=== PATIENT | female | born 1960 ===

== ENCOUNTER 2016-09-14 10:53 | Inpatient (IN) | payer MEDICAID, OTHER ==
[2016-09-14 12:28] LABS: BASO # 0.1 K/uL (0.0-0.2); BASO % 0.7 % (0.0-2.0); EOS # 0.1 K/uL (0.0-0.7); EOS % 1.8 % (0.0-4.0); HEMATOCRIT 23.8 % (34.0-47.0); LYMPH # 0.8 K/uL (1.0-4.3); LYMPH % 10.6 % (20.0-40.0); MEAN CELL VOLUME 81.4 fL (81.0-99.0); MEAN CORPUSCULAR HEMOGLOBIN 27.2 pg (27.0-31.0); MEAN CORPUSCULAR HGB CONC 33.4 g/dL (33.0-37.0); MEAN PLATELET VOLUME 6.9 fL (7.2-11.7); MONO # 0.5 K/uL (0.0-0.8); MONO % 5.8 % (0.0-10.0); WHITE BLOOD COUNT 7.9 K/uL (4.8-10.8)
[2016-09-14 12:37] LABS: POTASSIUM 5.2 mmol/L (3.6-5.2)
[2016-09-14] MEDS ORDERED: DiphenhydrAMINE 50 mg/ml Inj IVP STA (12:37)
[2016-09-14 12:39] LABS: ALB/GLOB RATIO 1.1 (1.0-2.1); BILIRUBIN,TOTAL 0.5 mg/dL (0.2-1.3); TOTAL PROTEIN 7.2 g/dL (6.3-8.3)
[2016-09-14 12:40] LABS: CALCIUM 7.9 mg/dl (8.6-10.4)
[2016-09-14] MEDS ORDERED: DiphenhydrAMINE 50 mg/ml Inj ONE (12:40)
--- NOTE | 2016-09-14 12:43 | C.PDOC ---
History Of Present Illness 56 y/o female pmhx HTN, renal disease presents to the ED with complains of headache worsening over the last week with associated pain to right samaritan area. Pt denies fever, vision changes, dizziness, vomiting or any other complaints. Pt with prolonged hospital course recently discharged 07/02/16. Time Seen by Provider: 09/14/16 12:32 Chief Complaint (Nursing): Headache History Per: Patient History/Exam Limitations: no limitations Onset/Duration Of Symptoms: Days Current Symptoms Are (Timing): Worse Severity: Moderate Quality: "Pain" Preceeding Symptoms: None Recent travel outside of the [place]: No Past Medical History Reviewed: Historical Data, Nursing Documentation, Vital Signs Vital Signs: Last Vital Signs Temp 98.2 F 09/14/16 14:05 Pulse 61 09/14/16 14:05 Resp 20 09/14/16 14:05 BP 166/82 H 09/14/16 14:05 Pulse Ox 100 09/14/16 14:23 - Medical History PMH: Hypercholesterolemia (uncontrolled ), Migraine - [facility] Procedures APPLICATION OF SPLINT (09/16/14) Family History: States: Unknown Family Hx - Social History Hx Tobacco Use: No Hx Alcohol Use: No Hx Substance Use: No - Immunization History Hx Tetanus Toxoid Vaccination: Yes Hx Influenza Vaccination: Yes Hx Pneumococcal Vaccination: No Review Of Systems Except As Marked, All Systems Reviewed And Found Negative. Constitutional: Negative for: Fever Eyes: Negative for: Vision Change Gastrointestinal: Negative for: Vomiting Musculoskeletal: Positive for: Other (pain to right temporal area) Neurological: Positive for: Headache. Negative for: Dizziness Physical Exam - Physical Exam Appears: Non-toxic, No Acute Distress Skin: Warm, Dry, No Rash Head: Atraumatic, Normacephalic, Tenderness (right temporal tenderness), No Swelling Eye(s): bilateral: PERRL, EOMI Ear(s): Bilateral: Normal Neck: Normal ROM, Supple Chest: Symmetrical Cardiovascular: Rhythm Regular, No Murmur Respiratory: Normal Breath Sounds, No Rales, No Rhonchi, No Wheezing Extremity: Bilateral: Atraumatic Neurological/Psych: Oriented x3, Normal Speech, Normal Cognition ED Course And Treatment - Laboratory Results Result Diagrams: 09/14/16 12:24 09/14/16 12:24 O2 Sat by Pulse Oximetry: 100 (on room air) Pulse Ox Interpretation: Normal - CT Scan/US CT head Other Rad Studies (CT/US): Read By Radiologist, Radiology Report Reviewed CT/US Interpretation: Accession No. : [id number]. Patient Name / ID : KALI SOSA / [id number]. Exam Date : 09/14/2016 13:16:32 ( Approved ) . Study Comment : Sex / Age : F / 56Y. Creator : Hilario Nicole. Dictator : Hilario Nicole. Departmental Shipping Clerk : Machine Former : Hilario Nicole. Approver2 : Report Date : 09/14/2016 13:20:05. My Comment : . PROCEDURE: CT HEAD WITHOUT CONTRAST. HISTORY: headache nausea. COMPARISON: Comparison is made to the previous study dated 06/30/2016. TECHNIQUE: Axial computed tomography images were obtained through the head/brain without intravenous contrast. Radiation dose: Total exam DLP = 595.84 mGy-cm. FINDINGS: HEMORRHAGE: No intracranial hemorrhage. BRAIN: No mass effect or edema. No atrophy or chronic microvascular ischemic changes. VENTRICLES: Unremarkable. No hydrocephalus. CALVARIUM: Unremarkable. PARANASAL SINUSES: Unremarkable as visualized. No significant inflammatory changes. MASTOID AIR CELLS: Unremarkable as visualized. No inflammatory changes. OTHER FINDINGS: None. IMPRESSION: Normal CT of the Head. Medical Decision Making Medical Decision Making: r/o intracranial pathology, migrains, worsening renal failure, temporal arteritis Plan: CT head, labs, benadryl, reglan 220: noted sed rate, noted cr. case discussed with dr salas, will see pt for hd. dr aguilera accepts. solumedrol ordered for possible temporal arteritis. Disposition - Disposition Disposition: HOSPITALIZED Disposition Time: 14:22 Condition: FAIR - Clinical Impression Clinical Impression: Renal failure, Headache, Temporal arteritis - Scribe Statement The provider has reviewed the documentation as recorded by the Mary Talley Provider Attestation: All medical record entries made by the Scribe were at my direction and personally dictated by me. I have reviewed the chart and agree that the record accurately reflects my personal performance of the history, physical exam, medical decision making, and the department course for this patient. I have also personally directed, reviewed, and agree with the discharge instructions and disposition. Decision To Admit - Pt Status Changed To: Hospital Disposition Of: Inpatient - Admit Certification Admit to Inpatient:: After my assessment, the patient will require hospitalization for at least two midnights. This is because of the severity of symptoms shown, intensity of services needed, and/or the medical risk in this patient being treated as an outpatient. - InPatient: Physician Admission Certification: I certify that this patient requires 2 or more midnights of care for the following reason:: pt with suspected temporal arteritis, worsening renal failure. needs hd - . Bed Request Type: Telemetry Admitting Physician: Niraj Aguilera Patient Diagnosis: Renal failure, Headache, Temporal arteritis
--- NOTE | 2016-09-14 13:21 | CT ---
PROCEDURE: CT HEAD WITHOUT CONTRAST. HISTORY: headache nausea COMPARISON: Comparison is made to the previous study dated 06/30/2016 TECHNIQUE: Axial computed tomography images were obtained through the head/brain without intravenous contrast. Radiation dose: Total exam DLP = 595.84 mGy-cm. FINDINGS: HEMORRHAGE: No intracranial hemorrhage. BRAIN: No mass effect or edema. No atrophy or chronic microvascular ischemic changes. VENTRICLES: Unremarkable. No hydrocephalus. CALVARIUM: Unremarkable. PARANASAL SINUSES: Unremarkable as visualized. No significant inflammatory changes. MASTOID AIR CELLS: Unremarkable as visualized. No inflammatory changes. OTHER FINDINGS: None. IMPRESSION: Normal CT of the Head.
[2016-09-14] MEDS ORDERED: MethylPREDNISolone 40 mg Vial IVP STA (14:20)
[2016-09-14 14:44] LABS: RBC URINE 8 /hpf (0-3); URINE BACTERIA RARE (<OCC); URINE BILIRUBIN NEGATIVE (NEGATIVE); URINE BLOOD 1+ (NEGATIVE); URINE COLOR Straw (YELLOW); URINE GLUCOSE (UA) 1+ mg/dL (Normal); URINE KETONE NEGATIVE (NEGATIVE); URINE LEUKOCYTE ESTERASE NEG Leu/uL (Negative); URINE PROTEIN 2+ mg/dL (NEGATIVE); URINE UROBILINOGEN NORMAL mg/dL (0.2-1.0); WBC URINE 4 /hpf (0-5)
[2016-09-14] MEDS ORDERED: methylPREDNISolone 1 GM in Sodium Chloride 0.9% 250 ML IV ONE (14:45)
--- NOTE | 2016-09-14 15:06 | CP.PCM.CON ---
History of Present Illness - History of Present Illness History of Present Illness: 56 y/o female with Hx/o chronic kidney disease, HTN presented to ER for c/o headaches, dizziness. No N&V but appetite has been poor. Pt was seen by us during her last admission in 06/2016. Her creatinine was 7.0 & was found to have atrophic & poorly functioning Rt kidney Pt was advised dialysis put pt did not want to proceed with dialysis at that time. She was also advised to come for f/u in the office but she did not follow up In ER pts BUN/Creat were 119/14.7 & severe metabolic acidosis Past Patient History - Infectious Disease Hx of Infectious Diseases: None - Tetanus Immunizations Tetanus Immunization: Unknown - Past Medical History & Family History Past Medical History?: Yes - Past Social History Smoking Status: Never Smoked - CARDIAC Hx Hypercholesterolemia: Yes (uncontrolled ) - PULMONARY Hx Respiratory Disorders: No - NEUROLOGICAL Hx Migraine: Yes - HEENT Hx HEENT Problems: No - RENAL Other/Comment: kidney problems - ENDOCRINE/METABOLIC Hx Endocrine Disorders: No - HEMATOLOGICAL/ONCOLOGICAL Hx Blood Disorders: No - INTEGUMENTARY Hx Dermatological Problems: No - MUSCULOSKELETAL/RHEUMATOLOGICAL Hx Musculoskeletal Disorders: No Hx Falls: No - GASTROINTESTINAL Hx Gastrointestinal Disorders: No - GENITOURINARY/GYNECOLOGICAL Hx Genitourinary Disorders: No - PSYCHIATRIC Hx Substance Use: No - SURGICAL HISTORY Hx Surgeries: Yes Other/Comment: Hx abdominal sx 15 years ago, pt unable to recall what type of surgery - ANESTHESIA Hx Anesthesia: Yes Hx Anesthesia Reactions: No Hx Malignant Hyperthermia: No Meds Allergies/Adverse Reactions: Allergies Allergy/AdvReac Type Severity Reaction Status Date / Time morphine Allergy Verified 09/14/16 10:58 - Medications Medications: Current Medications Methylprednisolone 1 gm/ (Sodium Chloride) 250 mls @ 250 mls/hr IV ONCE ONE Stop: 09/14/16 15:44 Physical Exam - Constitutional Additional comments: Appears in distress sec to headaches & weakness - Head Exam Head Exam: ATRAUMATIC, NORMOCEPHALIC - Eye Exam Additional comments: No icterus - ENT Exam ENT Exam: Mucous Membranes Dry - Neck Exam Additional comments: Neck supple - Cardiovascular Exam Cardiovascular Exam: REGULAR RHYTHM Additional comments: No rub - GI/Abdominal Exam GI & Abdominal Exam: Soft Additional comments: No tenderness - Rectal Exam Rectal Exam: Deferred - Extremities Exam Additional comments: No edema or cyanosis Results - Vital Signs Recent Vital Signs: Last Vital Signs Temp 98.2 F 09/14/16 14:05 Pulse 61 09/14/16 14:05 Resp 20 09/14/16 14:05 BP 166/82 H 09/14/16 14:05 Pulse Ox 100 09/14/16 14:23 - Labs Result Diagrams: 09/14/16 12:24 09/14/16 12:24 Labs: Laboratory Results - last 24 hr 09/14/16 14:31 Urine Color Straw Urine Clarity Clear Urine pH 6.0 Ur Specific [place] 1.010 Urine Protein 2+ H Urine Glucose (UA) 1+ Urine Ketones Negative Urine Blood 1+ H Urine Nitrate Negative Urine Bilirubin Negative Urine Urobilinogen Normal Ur Leukocyte Esterase Neg Urine WBC (Auto) 4 Urine RBC (Auto) 8 H Ur Squamous Epith Cells < 1 Urine Bacteria Rare Assessment & Plan - Assessment and Plan (Free Text) Assessment: Uremia/ ESRD Metabolic acidosis sc to above Anemia of chronic kidney disease Headaches. CT of head is unremarkable Plan: Initiate dialysis Dialysis procedure, benefits & side effects explained to Pt & consent obtained via Danish interpretor Dialysis orders entered Start dialysis as soon as dialysis access is available
[2016-09-14] MEDS ORDERED: EPOETIN ALFA 4,000 UNIT/ML ML Dialysis SC ONE (15:25)
[2016-09-14] MEDS ORDERED: Epoetin Alfa Dialysis 3000 UNIT/ML Inj IV ONE ×2 (15:28→20:45)
[2016-09-14] MEDS ORDERED: Sodium Chloride 0.9% 1,000 ML IV SCH ×2 (15:45→16:12)
--- NOTE | 2016-09-14 16:22 | CP.PCM.HP ---
<Edilma Hyde - Last Filed: 09/14/16 16:16> History of Present Illness - History of Present Illness History of Present Illness: Internal medicine H & P for Dr. Nikki Hyde, PGY-1 Pt S & E at bedside. 56 yo Azeri-speaking F w/PMH sig for kidney problems, recurrent headache admitted to hospital for headache x 1 day. Headache began approx 1 week ago, progressively worsening, U/L, and pulsating. Associated with pain around R voodoo, R eye pain, blurring of vision, nausea and dizziness. Tried Tylenol with/out relief. Aggravating factors include: light, movement. In ED - CT of head- negative, worked up sig for ESR of 65. Given Benadryl and Reglan. Solumedrol not given. BUN of 116 and Creatinine of 14.7 - pt admitted for emergent HD catheter placement & Hemodialysis. PMH: Known kidney problems, recurrent headaches PSH: Hysterectomy Allergies: Morphine SH:Illicit drug use, tobacoo use and alcohol use PMD: Denies Present on Admission - Present on Admission Any Indicators Present on Admission: No History of DVT/PE: No History of Uncontrolled Diabetes: No Urinary Catheter: No Decubitus Ulcer Present: No Review of Systems - Review of Systems All systems: reviewed and no additional remarkable complaints except - Constitutional Constitutional: Headache. absent: Chills, Fever - EENT Eyes: Blurred Vision, Pain, Photophobia. absent: Diplopia Ears: Dizziness Nose/Mouth/Throat: absent: Nasal Congestion, Sore Throat - Cardiovascular Cardiovascular: absent: Chest Pain, Palpitations - Respiratory Respiratory: absent: Cough - Gastrointestinal Gastrointestinal: Nausea. absent: Abdominal Pain, Vomiting - Genitourinary Genitourinary: absent: Dysuria, Hematuria - Musculoskeletal Musculoskeletal: absent: Back Pain, Neck Pain - Neurological Neurological: Dizziness Past Patient History - Infectious Disease Hx of Infectious Diseases: None - Tetanus Immunizations Tetanus Immunization: Unknown - Past Medical History & Family History Past Medical History?: Yes - Past Social History Smoking Status: Never Smoked - CARDIAC Hx Hypercholesterolemia: Yes (uncontrolled ) - PULMONARY Hx Respiratory Disorders: No - NEUROLOGICAL Hx Migraine: Yes - HEENT Hx HEENT Problems: No - RENAL Other/Comment: kidney problems - ENDOCRINE/METABOLIC Hx Endocrine Disorders: No - HEMATOLOGICAL/ONCOLOGICAL Hx Blood Disorders: No - INTEGUMENTARY Hx Dermatological Problems: No - MUSCULOSKELETAL/RHEUMATOLOGICAL Hx Musculoskeletal Disorders: No Hx Falls: No - GASTROINTESTINAL Hx Gastrointestinal Disorders: No - GENITOURINARY/GYNECOLOGICAL Hx Genitourinary Disorders: No - PSYCHIATRIC Hx Substance Use: No - SURGICAL HISTORY Hx Surgeries: Yes Other/Comment: Hx abdominal sx 15 years ago, pt unable to recall what type of surgery - ANESTHESIA Hx Anesthesia: Yes Hx Anesthesia Reactions: No Hx Malignant Hyperthermia: No Meds Allergies/Adverse Reactions: Allergies Allergy/AdvReac Type Severity Reaction Status Date / Time morphine Allergy Verified 09/14/16 10:58 Physical Exam - Constitutional Appears: Non-toxic, No Acute Distress - Head Exam Head Exam: ATRAUMATIC, NORMAL INSPECTION, NORMOCEPHALIC - Eye Exam Eye Exam: EOMI, Normal appearance, PERRL. absent: Periorbital tenderness Pupil Exam: NORMAL ACCOMODATION, PERRL - ENT Exam ENT Exam: Mucous Membranes Moist, Normal Exam - Neck Exam Neck exam: Positive for: Full Rom, Normal Inspection - Respiratory Exam Respiratory Exam: Clear to Auscultation Bilateral, NORMAL BREATHING PATTERN. absent: Rales, Rhonchi, Wheezes - Cardiovascular Exam Cardiovascular Exam: REGULAR RHYTHM, +S1, +S2 - GI/Abdominal Exam GI & Abdominal Exam: Normal Bowel Sounds, Soft. absent: Tenderness - Extremities Exam Extremities exam: Positive for: normal inspection. Negative for: pedal edema, tenderness - Neurological Exam Neurological exam: Alert, CN II-XII Intact, Oriented x3 - Psychiatric Exam Psychiatric exam: Normal Affect, Normal Mood - Skin Skin Exam: Dry, Intact, Normal Color, Warm Results - Vital Signs Recent Vital Signs: Last Vital Signs Temp 98.2 F 09/14/16 14:05 Pulse 61 09/14/16 14:05 Resp 20 09/14/16 14:05 BP 166/82 H 09/14/16 14:05 Pulse Ox 100 09/14/16 14:23 - Labs Result Diagrams: 09/14/16 12:24 09/14/16 12:24 Labs: Laboratory Results - last 24 hr 09/14/16 14:31 Urine Color Straw Urine Clarity Clear Urine pH 6.0 Ur Specific [place] 1.010 Urine Protein 2+ H Urine Glucose (UA) 1+ Urine Ketones Negative Urine Blood 1+ H Urine Nitrate Negative Urine Bilirubin Negative Urine Urobilinogen Normal Ur Leukocyte Esterase Neg Urine WBC (Auto) 4 Urine RBC (Auto) 8 H Ur Squamous Epith Cells < 1 Urine Bacteria Rare Assessment & Plan - Assessment and Plan (Free Text) Assessment: Headache ESR 65 Prednisone 60mg Daily Will consider temporal artery biopsy if indicated CT brain - negative Neuro consulted- Kush Acute Renal Failure BUN 116 Cr 14.7 NPO NS@75 U/A pos for 1+ blood, 2+ proteins Holding anticoagulation Vascular surgery consulted-[place]- Consented for HD catheter placement and emergent dialysis HTN BP 166/82 Hydralazine 50mg Q8H ARACELY Monitor Pruritis Benadryl 25mg Q8H PRN Monitor GI/DVT ppx Pepcid SCDs Heparin- held for surgery Dispo OR today for cather placement Dialysis after catheter placement Will start renal diet after OR DW attending - Date & Time Date: 09/14/16 Time: 04:00 <Kenneth Bailey - Last Filed: 09/14/16 20:57> Results - Vital Signs Recent Vital Signs: Last Vital Signs Temp 97.9 F 09/14/16 19:45 Pulse 73 09/14/16 20:27 Resp 20 09/14/16 20:27 BP 186/86 H 09/14/16 20:30 Pulse Ox 99 09/14/16 19:45 - Labs Result Diagrams: 09/14/16 12:24 09/14/16 12:24 Labs: Laboratory Results - last 24 hr 09/14/16 09/14/16 09/14/16 14:31 16:33 16:38 PT 11.2 INR 1.0 APTT 29 Iron TIBC % Saturation Urine Color Straw Urine Clarity Clear Urine pH 6.0 Ur Specific [place] 1.010 Urine Protein 2+ H Urine Glucose (UA) 1+ Urine Ketones Negative Urine Blood 1+ H Urine Nitrate Negative Urine Bilirubin Negative Urine Urobilinogen Normal Ur Leukocyte Esterase Neg Urine WBC (Auto) 4 Urine RBC (Auto) 8 H Ur Squamous Epith Cells < 1 Urine Bacteria Rare Blood Type O POSITIVE Antibody Screen Negative 09/14/16 19:57 PT INR APTT Iron 79 TIBC 226 L % Saturation 35 Urine Color Urine Clarity Urine pH Ur Specific [place] Urine Protein Urine Glucose (UA) Urine Ketones Urine Blood Urine Nitrate Urine Bilirubin Urine Urobilinogen Ur Leukocyte Esterase Urine WBC (Auto) Urine RBC (Auto) Ur Squamous Epith Cells Urine Bacteria Blood Type Antibody Screen Attending/Attestation - Attestation I have personally seen and examined this patient.: Yes I have fully participated in the care of the patient.: Yes I have reviewed all pertinent clinical information: Yes Notes (Text): Patient with CKD V, htn, presented to ED with several days of vomiting, headaches; Patient was admitted with similar symptoms about 2 months ago with symptoms resolving spontaneously; renal function was noted to have worsened at that time although patient was not in need of initiating dialysis; nephrology was consulted to institute f/u care, however, patient never followed with them or with our clinic; she reports running out of the meds she was dishcarged with and not getting refills; Currently patient appears euvolemic on exam; no overt asterixis but does have very mild ankle clonus; labs show borderline hyperkalemia and marked metabolic acidosis; nephrology consulted and arrangements made to insert HD catheter and initiate dialysis as patient is ESRD at this point; will start gentle IVF untill HD started; HTN uncontrolled; starting hydralazine 50 mg q8h; Headache chronic but worse today than previously; reports associated blurry vision but not currently and headache has subsided; exam reveals tenderness over R temporal artery; ESR elevated (65); will start empiric treatment for temporal arteriitis with prednisone 60 mg daily and consult neuro; may benefit from MRA to better assess temporal artery (and for possible biopsy site along artery); will have to be done without THIERRY due to advanced CKD; Anemia secondary to renal failure; will benefit from EPO (once BP better controlled); CKD 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 09/14/16 20:45
--- NOTE | 2016-09-14 16:36 | CP.PCM.CON ---
History of Present Illness - History of Present Illness History of Present Illness: PGY-1 consult note for General surgery, Dr. Louis CC: headaches Surgical consultation for Permacath placement HPI: 56 year old female, with PMHx of HTN and renal failure, presents to the ED with right temporal headaches. She reports the headache began 1 week ago, but has been getting progressively worse, especially in the past 24 hours. The headache is associated with right church pain, right eye pain, blurry vision , nausea and dizziness. Patient had recent admission in June 2016 for same symptoms and was told she needed dialysis at that time. She did not follow up however and has not been taking any medication for her high blood pressure. She also reports intermittent back pain from her "kidney problems." Denies fever, chills, dizziness, numbness/tingling, vomiting, and chest pain. PMHx: HTN, renal failure SHx: none Fam: mom (DM), sister (breast cancer) Allergies: morphine Review of Systems - Constitutional Constitutional: Headache (pulsating, right sided). absent: Chills, Fever, Weakness - EENT Eyes: Blurred Vision Ears: Dizziness. absent: Decreased Hearing - Cardiovascular Cardiovascular: absent: Chest Pain, Dyspnea, Dyspnea on Exertion - Respiratory Respiratory: absent: Dyspnea, Dyspnea on Exertion - Gastrointestinal Gastrointestinal: Nausea. absent: Vomiting - Genitourinary Genitourinary: absent: Dysuria - Musculoskeletal Musculoskeletal: Back Pain - Neurological Neurological: absent: Numbness, Weakness - Psychiatric Psychiatric: Anxiety (anxious over permacath placement) - Endocrine Endocrine: absent: Fatigue Past Patient History - Infectious Disease Hx of Infectious Diseases: None - Tetanus Immunizations Tetanus Immunization: Unknown - Past Medical History & Family History Past Medical History?: Yes - Past Social History Smoking Status: Never Smoked - CARDIAC Hx Hypercholesterolemia: Yes (uncontrolled ) - PULMONARY Hx Respiratory Disorders: No - NEUROLOGICAL Hx Migraine: Yes - HEENT Hx HEENT Problems: No - RENAL Other/Comment: kidney problems - ENDOCRINE/METABOLIC Hx Endocrine Disorders: No - HEMATOLOGICAL/ONCOLOGICAL Hx Blood Disorders: No - INTEGUMENTARY Hx Dermatological Problems: No - MUSCULOSKELETAL/RHEUMATOLOGICAL Hx Musculoskeletal Disorders: No Hx Falls: No - GASTROINTESTINAL Hx Gastrointestinal Disorders: No - GENITOURINARY/GYNECOLOGICAL Hx Genitourinary Disorders: No - PSYCHIATRIC Hx Substance Use: No - SURGICAL HISTORY Hx Surgeries: Yes Other/Comment: Hx abdominal sx 15 years ago, pt unable to recall what type of surgery - ANESTHESIA Hx Anesthesia: Yes Hx Anesthesia Reactions: No Hx Malignant Hyperthermia: No Meds Allergies/Adverse Reactions: Allergies Allergy/AdvReac Type Severity Reaction Status Date / Time morphine Allergy Verified 09/14/16 10:58 - Medications Medications: Current Medications Famotidine (Pepcid) 20 mg PO BID [facility] Heparin Sodium (Porcine) (Heparin) 5,000 units SC Q12 [facility] Hydralazine HCl (Apresoline) 50 mg PO Q8H [facility] Sodium Chloride (Sodium Chloride 0.9%) 1,000 mls @ 75 mls/hr IV .[id number] [facility] Metoclopramide HCl (Reglan) 5 mg PO ACHS PRN PRN Reason: Nausea/Vomiting Prednisone (Prednisone Tab) 60 mg PO DAILY [facility] Physical Exam - Constitutional Appears: No Acute Distress - Head Exam Head Exam: ATRAUMATIC, NORMAL INSPECTION, NORMOCEPHALIC - Eye Exam Eye Exam: EOMI Pupil Exam: PERRL - ENT Exam ENT Exam: Mucous Membranes Moist - Respiratory Exam Respiratory Exam: NORMAL BREATHING PATTERN - GI/Abdominal Exam GI & Abdominal Exam: Normal Bowel Sounds, Soft. absent: Tenderness - Back Exam Back exam: NORMAL INSPECTION, paraspinal tenderness - Neurological Exam Neurological exam: Alert, CN II-XII Intact, Oriented x3 - Psychiatric Exam Psychiatric exam: Normal Affect, Normal Mood - Skin Skin Exam: Normal Color, Warm Results - Vital Signs Recent Vital Signs: Last Vital Signs Temp 98.0 F 09/14/16 16:26 Pulse 71 09/14/16 16:26 Resp 20 09/14/16 16:26 BP 152/70 H 09/14/16 16:26 Pulse Ox 99 09/14/16 16:26 - Labs Result Diagrams: 09/14/16 12:24 09/14/16 12:24 Labs: Laboratory Results - last 24 hr 09/14/16 14:31 Urine Color Straw Urine Clarity Clear Urine pH 6.0 Ur Specific [place] 1.010 Urine Protein 2+ H Urine Glucose (UA) 1+ Urine Ketones Negative Urine Blood 1+ H Urine Nitrate Negative Urine Bilirubin Negative Urine Urobilinogen Normal Ur Leukocyte Esterase Neg Urine WBC (Auto) 4 Urine RBC (Auto) 8 H Ur Squamous Epith Cells < 1 Urine Bacteria Rare Assessment & Plan - Assessment and Plan (Free Text) Assessment: 56 year old female with renal failure for permacath placement Plan: Permacath placement this afternoon with Dr. Louis f/u vein mapping in left upper extremity Possible AVF in left arm Dialysis per Nephrology instructions d/w Dr Missy Hraris, PGY-1
[2016-09-14] MEDS ORDERED: ceFAZolin IV 1 gm in Dextrose 50 ML IVPB ONE (16:50)
[2016-09-14] MEDS ORDERED: Lidocaine 1% Inj (20ml) ONE (16:51)
[2016-09-14] MEDS ORDERED: Iohexol 240 (50 ml) ONE (16:52)
[2016-09-14] MEDS ORDERED: Sodium Chloride 0.9% 1,000 ML IV ONE (16:57)
[2016-09-14] MEDS ORDERED: Heparin 1,000 Units/500 ml NS IV ONE (17:15)
--- NOTE | 2016-09-14 17:34 | PCM.SURG1 ---
Surgeon's Initial Post Op Note - Surgeon's Notes Surgeon: Dr. Louis Broke Beater Operator: Dr. Aguilar Type of Anesthesia: IV Sedation, Local Pre-Operative Diagnosis: acute on chronic renal failure, requiring urgent dialysis Operative Findings: dark venous blood Post-Operative Diagnosis: same Operation Performed: right IJ permacath insertion with ultrasound guidance Specimen/Specimens Removed: none Estimated Blood Loss: EBL {In ML}: 25 Blood Products Given: N/A Drains Used: No Drains Post-Op Condition: Good Date of Surgery/Procedure: 09/14/16 Time of Surgery/Procedure: 17:34
[2016-09-14] MEDS ORDERED: Oxycodone/Acetaminophen 5/325 mg Tab PO PRN (17:36)
[2016-09-14] MEDS ORDERED: HYDROmorphone 0.5 mg/0.5 ml ISec IVP PRN (17:53)
--- NOTE | 2016-09-14 19:09 | RAD ---
HISTORY: s/p permacath insertion COMPARISON: Comparison is made to the previous study dated 08/03/2015 FINDINGS: LUNGS: No active pulmonary disease. PLEURA: No significant pleural effusion identified, no pneumothorax apparent. CARDIOVASCULAR: Normal. OSSEOUS STRUCTURES: No significant abnormalities. VISUALIZED UPPER ABDOMEN: Normal. OTHER FINDINGS: Interval insertion of right sided hemodialysis catheter. IMPRESSION: Interval insertion of right-sided hemodialysis catheter. No evidence of pneumothorax or acute pulmonary disease.
[2016-09-14 20:19] LABS: IRON 79 ug/dL (37-170)
[2016-09-15 07:20] LABS: BASO % 0.4 % (0.0-2.0); HEMATOCRIT 22.4 % (34.0-47.0); LYMPH # 0.5 K/uL (1.0-4.3); LYMPH % 6.7 % (20.0-40.0); MEAN CELL VOLUME 80.7 fL (81.0-99.0); MEAN CORPUSCULAR HEMOGLOBIN 27.2 pg (27.0-31.0); MEAN CORPUSCULAR HGB CONC 33.7 g/dL (33.0-37.0); MONO # 0.3 K/uL (0.0-0.8); MONO % 4.1 % (0.0-10.0); PLATELET COUNT 144 K/uL (130-400); RED CELL DISTRIBUTION WIDTH 14.8 % (11.5-14.5); WHITE BLOOD COUNT 7.5 K/uL (4.8-10.8)
[2016-09-15 07:48] LABS: FREE T4 1.26 ng/dL (0.78-2.19)
[2016-09-15 07:58] LABS: POTASSIUM 3.9 mmol/L (3.6-5.2)
[2016-09-15 08:00] LABS: ALB/GLOB RATIO 1.3 (1.0-2.1); BILIRUBIN,TOTAL 0.3 mg/dL (0.2-1.3); TOTAL PROTEIN 6.5 g/dL (6.3-8.3)
[2016-09-15 08:01] LABS: CALCIUM 7.9 mg/dl (8.6-10.4)
[2016-09-15 08:03] LABS: THYROID STIMULATING HORMONE 3.65 mIU/L (0.46-4.68)
--- NOTE | 2016-09-15 08:05 | CP.PCM.PN ---
Subjective - Date & Time of Evaluation Date of Evaluation: 09/15/16 Time of Evaluation: 08:03 - Subjective Subjective: Surgery: Dr. Louis Patient s/p permacath insertion. Patient complains of mild pain to the site of insertion. Mainly patient complaints of headache and vomiting. Similar symptoms which she had at home. She reports having HD yesterday through catheter which was tolerated well. She denies any SOB or chest pain. Objective - Vital Signs/Intake and Output Vital Signs (last 24 hours): Temp Pulse Resp BP Pulse Ox 98.1 F 76 20 163/82 H 99 09/15/16 04:00 09/15/16 04:00 09/15/16 04:00 09/15/16 04:00 09/15/16 04:00 Intake and Output: 09/15/16 09/15/16 06:59 18:59 Intake Total 100 Balance 100 - Medications Medications: Current Medications Acetaminophen (Tylenol 325 Mg Supp) 325 mg [place] Q4 PRN PRN Reason: Headache Diphenhydramine HCl (Benadryl) 25 mg PO Q8 [facility] Last Admin: 09/15/16 06:30 Dose: Not Given Famotidine (Pepcid) 20 mg PO BID [facility] Heparin Sodium (Porcine) (Heparin) 5,000 units SC Q12 [facility] Hydralazine HCl (Apresoline) 50 mg PO Q8H [facility] Last Admin: 09/15/16 01:10 Dose: 50 mg Sodium Chloride (Sodium Chloride 0.9%) 1,000 mls @ 75 mls/hr IV .[id number] [facility] Metoclopramide HCl (Reglan) 5 mg PO ACHS PRN PRN Reason: Nausea/Vomiting Metoclopramide HCl (Reglan) 10 mg IVP Q6 PRN PRN Reason: Nausea/Vomiting Ondansetron HCl (Zofran Inj) 4 mg IVP Q4 PRN PRN Reason: Nausea/Vomiting Last Admin: 09/15/16 04:49 Dose: 4 mg Oxycodone/Acetaminophen (Percocet 5/325 Mg Tab) 1 tab PO Q4H PRN PRN Reason: Pain, moderate (4-7) Stop: 09/17/16 17:37 Prednisone (Prednisone Tab) 60 mg PO DAILY [facility] - Labs Labs: 09/15/16 07:04 09/15/16 07:04 PT 11.2 SECONDS (9.7-12.2) 09/14/16 16:33 INR 1.0 09/14/16 16:33 APTT 29 SECONDS (21-34) 09/14/16 16:33 - Constitutional Appears: Non-toxic, No Acute Distress - Head Exam Head Exam: ATRAUMATIC, NORMOCEPHALIC - Eye Exam Eye Exam: EOMI, Normal appearance - ENT Exam ENT Exam: Mucous Membranes Moist - Respiratory Exam Respiratory Exam: NORMAL BREATHING PATTERN. absent: Respiratory Distress Additional comments: R IJ permacath site CDI, no hematoma - Cardiovascular Exam Cardiovascular Exam: REGULAR RHYTHM. absent: Tachycardia - Neurological Exam Neurological Exam: Alert, Awake - Psychiatric Exam Psychiatric exam: Normal Affect, Normal Mood - Skin Skin Exam: Dry, Intact, Normal Color, Warm Assessment and Plan - Assessment and Plan (Free Text) Assessment: 56 y/o female with acute on chronic renal failure s/p R IJ permacath insertion POD1 Plan: -f/u am labs -post op CXR w/o pnx -f/u vein mapping -Left arm precautions -will change medications to IV due to patient unable to tolerate po -Reglan for n/v and migraine, rectal Tylenol -patient refusing percocet -patient for HD today per nursing -further recs per Dr. Missy Denise PGY1
--- NOTE | 2016-09-15 08:06 | OP ---
PROCEDURE DATE: 09/14/2016 PREOPERATIVE DIAGNOSIS: Renal failure. POSTOPERATIVE DIAGNOSIS: Renal failure. PROCEDURE CARRIED OUT: Placement of Perm-A-Cath right jugular vein with C-arm fluoroscopy, ultrasoun d-guided puncture and micropuncture technique. SURGEON: Anthony Louis Jr., M.D. BOILERMAKER SHIP: Dr. Aguilar. ANESTHESIOLOGIST: Dr. Montes. ANESTHESIA: Local with sedation. INDICATIONS: A 56-year-old woman with renal failure, elevated potassium of 5.2, creatinine 14, etc., requires urgent dialysis. OPERATIVE FINDINGS: Catheter was inserted uneventfully via the jugular vein. PROCEDURE: Using ultrasound guidance and micropuncture technique, the right jugular vein was cannula gypsy. Under fluoroscopic control, the guidewire was advanced centrally. This was exchanged for an 0. 035 wire. A sheath dilator passed over this. The catheter was then positioned in the appropriate loca tion. It was flushed with heparinized saline. There was excellent flow. After this had been done, it was tested again for flow and secured to the chest wall. Blood loss from procedure was less than 25 mL. There were no operative complications or problems. Ultrasound images was approximately 13 mm in diameter with normal compressibility and no evidence of intraluminal thrombosis. Anthony Louis Jr., MD cc: [id number] TT: 09/15/2016 08:06:05 ms
[2016-09-15 10:03] LABS: NEUTROPHIL 90 % (50-75); TOTAL CELLS COUNTED 100
--- NOTE | 2016-09-15 10:56 | CP.PCM.PN ---
<Edilma Hyde - Last Filed: 09/15/16 15:08> Subjective - Date & Time of Evaluation Date of Evaluation: 09/15/16 Time of Evaluation: 07:00 - Subjective Subjective: Internal medicine progress note for Hospitalist service- Edilma Hyde, PGY-1 Pt S & E at bedside. Pt reports continued Right sided headache, no vision changes, R eye pain- described as pulsating with radiation to Right cheek. Did not sleep due to pain. Had N/emesis x 5-nbnb- white foam. Is feeling dizzy, chills. Denies fevers, SOB, chest pain, abdominal pain, other complaints. Had HD for the first time yesterday. Objective - Vital Signs/Intake and Output Vital Signs (last 24 hours): Temp Pulse Resp BP Pulse Ox 97.9 F 75 18 161/89 H 98 09/15/16 09:30 09/15/16 09:30 09/15/16 09:30 09/15/16 09:30 09/15/16 09:30 Intake and Output: 09/15/16 09/15/16 06:59 18:59 Intake Total 100 Balance 100 - Medications Medications: Current Medications Acetaminophen (Tylenol 325 Mg Supp) 325 mg [place] Q4 PRN PRN Reason: Headache Diphenhydramine HCl (Benadryl) 25 mg PO Q8 [facility] Last Admin: 09/15/16 06:30 Dose: Not Given Epoetin Arash (Procrit) 10,000 unit IV TTS [facility] Stop: 09/26/16 10:01 Famotidine (Pepcid) 20 mg PO BID [facility] Last Admin: 09/15/16 10:34 Dose: Not Given Heparin Sodium (Porcine) (Heparin) 5,000 units SC Q12 [facility] Last Admin: 09/15/16 10:34 Dose: Not Given Hydralazine HCl (Apresoline) 50 mg PO Q8H [facility] Last Admin: 09/15/16 08:15 Dose: 50 mg Sodium Chloride (Sodium Chloride 0.9%) 1,000 mls @ 75 mls/hr IV .[id number] [facility] Metoclopramide HCl (Reglan) 5 mg PO ACHS PRN PRN Reason: Nausea/Vomiting Metoclopramide HCl (Reglan) 10 mg IVP Q6 PRN PRN Reason: Nausea/Vomiting Ondansetron HCl (Zofran Inj) 4 mg IVP Q4 PRN PRN Reason: Nausea/Vomiting Last Admin: 09/15/16 04:49 Dose: 4 mg Oxycodone/Acetaminophen (Percocet 5/325 Mg Tab) 1 tab PO Q4H PRN PRN Reason: Pain, moderate (4-7) Stop: 09/17/16 17:37 Prednisone (Prednisone Tab) 60 mg PO DAILY [facility] - Labs Labs: 09/15/16 07:04 09/15/16 07:04 PT 11.2 SECONDS (9.7-12.2) 09/14/16 16:33 INR 1.0 09/14/16 16:33 APTT 29 SECONDS (21-34) 09/14/16 16:33 - Constitutional Appears: Non-toxic, No Acute Distress - Head Exam Head Exam: ATRAUMATIC, NORMAL INSPECTION, NORMOCEPHALIC - Eye Exam Eye Exam: EOMI, Normal appearance, PERRL. absent: Nystagmus, Periorbital swelling, Periorbital tenderness Pupil Exam: NORMAL ACCOMODATION, PERRL - ENT Exam ENT Exam: Mucous Membranes Moist, Normal Exam - Neck Exam Neck Exam: Full ROM, Normal Inspection - Respiratory Exam Respiratory Exam: Chest Wall Tenderness (Over HD catheter insertion over of Right chest wall), Clear to Ausculation Bilateral, NORMAL BREATHING PATTERN. absent: Decreased Breath Sounds, Rales, Rhonchi, Wheezes, Respiratory Distress - Cardiovascular Exam Cardiovascular Exam: REGULAR RHYTHM, +S1, +S2 - GI/Abdominal Exam GI & Abdominal Exam: Soft, Normal Bowel Sounds. absent: Distended, Firm, Guarding, Rigid, Tenderness - Extremities Exam Extremities Exam: Full ROM, Normal Inspection - Back Exam Back Exam: Full ROM, NORMAL INSPECTION. absent: tenderness - Neurological Exam Neurological Exam: Alert, Awake, CN II-XII Intact, Oriented x3 - Psychiatric Exam Psychiatric exam: Normal Affect, Normal Mood - Skin Skin Exam: Dry, Intact, Normal Color, Warm Assessment and Plan - Assessment and Plan (Free Text) Assessment: Headache ESR 65 from [address] brain - negative Neuro consulted- Kush- MRI/MRA, CT brain, low probability of temporal arteritis- no temporal artery bx at this time Acute Renal Failure BUN 52 from 116 Cr 8.5 from 14.7 Renal diet NS@75 Procrit as per nephro U/A pos for 1+ blood, 2+ proteins Holding anticoagulation Vascular surgery following- Percocet and Tylenol for pain Nephro- Pt for HD TTS, Procrit Anemia Hgb 7.5 Hct 22.4 FU retic count FU FOB Monitor for bleeding HTN BP 161/89- continues to be high Hydralazine 50mg Q8H [facility] increased to 75mg Q8H [facility] Monitor Nausea Reglan Monitor Pruritis Benadryl 25mg Q8H PRN Monitor GI/DVT ppx Pepcid SCDs Heparin Dispo FU imaging studies as per neuro Pain mgmt for headadche DW attending <Erna Calloway V - Last Filed: 09/15/16 23:18> Objective - Vital Signs/Intake and Output Vital Signs (last 24 hours): Temp Pulse Resp BP Pulse Ox 99.3 F 92 H 20 135/79 96 09/15/16 15:29 09/15/16 16:13 09/15/16 15:29 09/15/16 15:29 09/15/16 15:29 - Medications Medications: Current Medications Acetaminophen (Tylenol 325 Mg Supp) 325 mg [place] Q4 PRN PRN Reason: Headache Diphenhydramine HCl (Benadryl) 25 mg PO Q8 [facility] Last Admin: 09/15/16 21:44 Dose: 25 mg Epoetin Arash (Procrit) 10,000 unit IV TTS [facility] Stop: 09/26/16 10:01 Last Admin: 09/15/16 11:50 Dose: 10,000 unit Famotidine (Pepcid) 20 mg PO BID [facility] Last Admin: 09/15/16 17:36 Dose: 20 mg Heparin Sodium (Porcine) (Heparin) 5,000 units SC Q12 [facility] Last Admin: 09/15/16 21:44 Dose: 5,000 units Hydralazine HCl (Apresoline) 75 mg PO Q8H [facility] Last Admin: 09/15/16 17:36 Dose: 75 mg Sodium Chloride (Sodium Chloride 0.9%) 1,000 mls @ 75 mls/hr IV .[id number] [facility] Metoclopramide HCl (Reglan) 10 mg IVP Q6 PRN PRN Reason: Nausea/Vomiting Oxycodone/Acetaminophen (Percocet 5/325 Mg Tab) 1 tab PO Q4H PRN PRN Reason: Pain, moderate (4-7) Stop: 09/17/16 17:37 Prednisone (Prednisone Tab) 60 mg PO DAILY [facility] Last Admin: 09/15/16 14:11 Dose: 60 mg - Labs Labs: 09/15/16 19:40 09/15/16 07:04 PT 11.2 SECONDS (9.7-12.2) 09/14/16 16:33 INR 1.0 09/14/16 16:33 APTT 29 SECONDS (21-34) 09/14/16 16:33 Attending/Attestation - Attestation I have personally seen and examined this patient.: Yes I have fully participated in the care of the patient.: Yes I have reviewed all pertinent clinical information, including history, physical exam and plan: Yes Notes (Text): Patient seen, examined, and case discussed with day-time resident. Patient seen post dialysis, 0.5 kg removed during dialysis per discussion with nurse. Patient reports the headaches are improved. Patient is reporting lightheadedness and dizziness. Patient denies history of anemia. Patient denies prior endoscopy/colonoscopy. Denies fam hx of colon cancer. Patient is no longer menstruating and denies BRBPR nor black stool. Patient completed 2nd dialysis today. Patient to complete Brain MRI/Head MRA today; pending results. Blood pressure medications adjusted; f/u blood pressure for control Assessment/Plan 1) Metabolic Acidosis, Chronic Kidney Disease * Nephrology (Dr. Orosco) on board * Vascular surgeon (Dr. Louis) on board * Dialysis scheduled T/Th/Sat * metabolic acidosis improved upon starting dialysis * Vein mapping for future fistula placement 2) Anemia * Iron and % iron levels are normal; ferritin normal, hgb low, tibc low * Ordered for reticulocyte count and stool occult blood * No prior GI workup * Possible anemia of chronic disease given chronic kidney disease * started on Epocrit 10,000 IV T/Th/Sat 3) Hyperkalemia * Normalized 4) Uncontrolled hypertension * increased hydralazine 75mg PO Q 8 hours * monitor vital signs * Patient is currently on dialysis T/Th/Wed schedule 5) Chronic Headache * Neurology (Dr. Currie) on board * Patient had elevated ESR on admission * Patient started on Prednisone 60mg PO to cover for empiric treatment for temporal arteritis; note on my exam, patient reports headaches improved, no associated eye symptoms, and reports associated dizziness * Pending Brain MRI, and Head MRA result * Possible carbmazpine at night pending report for possible trigeminal neuralgia 6) Prophylactic care * Heparin 5000 units subq 12 hours for DVT ppx * Pepcid 20mg PO daily for gi pxx * Dialysis placement per case management; hepatitis panel negative; pending hep B surface Ab
--- NOTE | 2016-09-15 11:01 | CP.PCM.PN ---
Subjective - Date & Time of Evaluation Date of Evaluation: 09/15/16 Time of Evaluation: 10:00 - Subjective Subjective: Currently on dialysis Alert & oriented Still has headache but little beter than yesterday Vomited once this am Objective - Vital Signs/Intake and Output Vital Signs (last 24 hours): Temp Pulse Resp BP Pulse Ox 97.9 F 75 18 161/89 H 98 09/15/16 09:30 09/15/16 09:30 09/15/16 09:30 09/15/16 09:30 09/15/16 09:30 Intake and Output: 09/15/16 09/15/16 06:59 18:59 Intake Total 100 Balance 100 - Medications Medications: Current Medications Acetaminophen (Tylenol 325 Mg Supp) 325 mg [place] Q4 PRN PRN Reason: Headache Diphenhydramine HCl (Benadryl) 25 mg PO Q8 [facility] Last Admin: 09/15/16 06:30 Dose: Not Given Epoetin Arash (Procrit) 10,000 unit IV TTS [facility] Stop: 09/26/16 10:01 Famotidine (Pepcid) 20 mg PO BID [facility] Last Admin: 09/15/16 10:34 Dose: Not Given Heparin Sodium (Porcine) (Heparin) 5,000 units SC Q12 [facility] Last Admin: 09/15/16 10:34 Dose: Not Given Hydralazine HCl (Apresoline) 50 mg PO Q8H [facility] Last Admin: 09/15/16 08:15 Dose: 50 mg Sodium Chloride (Sodium Chloride 0.9%) 1,000 mls @ 75 mls/hr IV .[id number] [facility] Metoclopramide HCl (Reglan) 5 mg PO ACHS PRN PRN Reason: Nausea/Vomiting Metoclopramide HCl (Reglan) 10 mg IVP Q6 PRN PRN Reason: Nausea/Vomiting Ondansetron HCl (Zofran Inj) 4 mg IVP Q4 PRN PRN Reason: Nausea/Vomiting Last Admin: 09/15/16 04:49 Dose: 4 mg Oxycodone/Acetaminophen (Percocet 5/325 Mg Tab) 1 tab PO Q4H PRN PRN Reason: Pain, moderate (4-7) Stop: 09/17/16 17:37 Prednisone (Prednisone Tab) 60 mg PO DAILY [facility] - Labs Labs: 09/15/16 07:04 03/28/17 07:04 PT 11.2 SECONDS (9.7-12.2) 09/14/16 16:33 INR 1.0 09/14/16 16:33 APTT 29 SECONDS (21-34) 09/14/16 16:33 - Eye Exam Additional comments: Conjunctivae pale Sclerae anicteric - Neck Exam Additional comments: JVD negative - Respiratory Exam Additional comments: Lungs clear - Cardiovascular Exam Cardiovascular Exam: REGULAR RHYTHM Additional comments: No rub or gallop - GI/Abdominal Exam GI & Abdominal Exam: Soft - Extremities Exam Additional comments: Extrem with no edema or cyanosis Assessment and Plan - Assessment and Plan (Free Text) Assessment: ESRD on HD. First dialysis tolerated well yesterday No fluid removed because Pt appears dry HTN Anemia of CKD Plan: Will continue HD with TTS schedule Pt received Epogen Iron profile noted. Tsat is high. Will monitor Hb
[2016-09-15 11:27] LABS: ERYTHROCYTE SEDIMENTATION RATE 65 mm/hr (0-20)
--- NOTE | 2016-09-15 11:31 | CON ---
DATE: 09/15/2016 TIME OF EVALUATION: 6:35 a.m. REASON FOR THE CONSULTATION: Headache. CHIEF COMPLAINT: The patient was admitted with acute renal failure. From neurological point of view, I was called in to evaluate her for her headache. HISTORY OF PRESENT ILLNESS: The patient is a 56-year-old thinly-built right- handed female presenting with a 2-week history of headache. Headache is scale about 7/10, throbbing in nature. Sometimes the vision is blurry. She denies fevers. Denies joint pain. Denies any rapid loss of weight or fever. No history of ear pain, no history of dental pain or associated with dizziness. PAST MEDICAL HISTORY: Kidney problem and recurrent headache. PAST SURGICAL HISTORY: Hysterectomy. ALLERGIES: MORPHINE. PERSONAL HISTORY: She uses alcohol, as well as tobacco. REVIEW OF SYSTEMS: As per H and P. MEDICATIONS: Hydralazine, Benadryl, heparin, Pepcid, Percocet, prednisone, Reglan, Tylenol, and Zofran. PHYSICAL EXAMINATION: VITAL SIGNS: Blood pressure 163/82, mean arterial pressure around 109, respiratory rate 18, temperature 98.1, pulse rate 76, regular. NECK: Supple. No carotid bruit. HEART: Sounds are regular. CHEST: Fair air entry. EXTREMITIES: No edema in legs. NEUROLOGIC EXAMINATION: The patient is examined in the presence of an airborne mission systems. She is awake, alert, oriented to person, place, and time. Speech is clear. Naming, repetition, fluency, and comprehension all within normal. CRANIAL NERVES: Visual field intact. Pupils reactive to light. Extraocular movements are normal. No nystagmus. No facial sensory deficit. Hearing is normal. Tongue is midline. Good gag. MOTOR: On outstretched hand with eyes closed, no drift noted. Power is symmetric on either side. DEEP TENDON REFLEXES: Biceps, brachioradialis, triceps 1+. Both knees are 3+. Both ankles are 1+. Plantars are downgoing. SENSORY: Grossly intact. No cortical sensory loss. COORDINATION: [id number] test is intact. CONCLUSION: Upon reviewing her history and neurological examination, the patient is presenting with a right temporal headache associating with some blurriness of the vision. The rest of the examination does not show any long tract sign. This examination, probably trigeminal neuralgia. However, I doubt _it. Even when she is on steroid, she has the same symptoms, which are not improving at present. WORKUP: 1. I agree with dialysis. 2. Blood pressure control. If the patient is not getting better at that point , may be beneficial to start her on carbamazepine 200 mg at nighttime, that I will decide after all workup is done. Her workup CT of the head reviewed. No acute pathologies noted. BLOOD WORKUP: WBC 7.9, hemoglobin 7.9, hematocrit 23.8, platelets 177. Sodium 140, potassium 5.0, chloride 107, bicarbonate 11. BUN 117. Creatinine is 14.7. Calcium 7.9. Iron 79. Ferritin 201. Urinalysis is 2+ proteinuria, 1+ blood. RECOMMENDATION: Proper hydration. I agree with hemodialysis and blood pressure control. Continue steroids as you are doing. Further workup, as per the order. Estuardo Currie MD cc: [id number] TT: 09/15/2016 11:31:23 Confirmation # [id number] Dictation # [id number] MTDD
--- NOTE | 2016-09-15 11:48 | RAD ---
PROCEDURE: Fluoroscopy up to 1 hr. HISTORY: RENAL FAILURE COMPARISON: None TECHNIQUE: Standard FINDINGS: Total fluoroscopic time (continuous mode) utilized during the procedure: 29.9 seconds. Submitted images from the current procedure: 2.0 IMPRESSION: Less than 1 hr fluoroscopic time utilized during performance of the procedure.
[2016-09-15] MEDS: Epoetin Alfa 10,000 unit/ml Dialysis IV SCH (11:50)
[2016-09-15 19:49] LABS: HEMATOCRIT 23.2 % (34.0-47.0); MEAN CELL VOLUME 81.1 fL (81.0-99.0); MEAN CORPUSCULAR HEMOGLOBIN 27.3 pg (27.0-31.0); MEAN CORPUSCULAR HGB CONC 33.7 g/dL (33.0-37.0); MEAN PLATELET VOLUME 7.5 fL (7.2-11.7); RED CELL DISTRIBUTION WIDTH 14.4 % (11.5-14.5); WHITE BLOOD COUNT 6.5 K/uL (4.8-10.8)
[2016-09-16 07:34] LABS: BASO % 0.1 % (0.0-2.0); HEMATOCRIT 22.2 % (34.0-47.0); LYMPH # 0.9 K/uL (1.0-4.3); MEAN CELL VOLUME 81.5 fL (81.0-99.0); MEAN CORPUSCULAR HEMOGLOBIN 27.6 pg (27.0-31.0); MEAN CORPUSCULAR HGB CONC 33.9 g/dL (33.0-37.0); MEAN PLATELET VOLUME 7.5 fL (7.2-11.7); MONO # 1.1 K/uL (0.0-0.8); MONO % 12.3 % (0.0-10.0); RED CELL DISTRIBUTION WIDTH 14.9 % (11.5-14.5); WHITE BLOOD COUNT 9.3 K/uL (4.8-10.8)
[2016-09-16 07:40] LABS: POTASSIUM 4.4 mmol/L (3.6-5.2)
[2016-09-16 07:42] LABS: ALB/GLOB RATIO 1.3 (1.0-2.1); BILIRUBIN,TOTAL 0.3 mg/dL (0.2-1.3); TOTAL PROTEIN 6.1 g/dL (6.3-8.3)
[2016-09-16 07:43] LABS: CALCIUM 8.4 mg/dl (8.6-10.4); PHOSPHOROUS 4.9 mg/dL (2.5-4.5)
--- NOTE | 2016-09-16 07:43 | PN ---
DATE: 09/16/2016 NEUROLOGICAL PROBLEM: Right temporal headache with visual disturbances. PHYSICAL EXAMINATION: VITAL SIGNS: Blood pressure 159/84, mean arterial pressure of 109, respiratory rate 16, temperature 98.3 with a pulse rate 101. NEUROLOGIC: The patient is arousable verbally. She is very comfortable. Her headache is 2/10. No visual disturbances. The patient is scheduled to have hemodialysis tomorrow. Her examination is unc hanged to compare with the previous exam. Official report on MRI of the brain and MR angiogram is still pending. I am reviewing by myself. No acute pathology is noted. However, official report is still pending. Continue the present management including steroids for now. I do not want to start her on carbamazep ine until her recurrent headache without any possible diagnosis, near future. Continue the present m anagement. The patient will be followed closely with you. Estuardo Currie MD cc: [id number] TT: 09/16/2016 07:42:35 Confirmation # [id number] Dictation # [id number] rené
--- NOTE | 2016-09-16 10:34 | MRI ---
PROCEDURE: MRI BRAIN WITHOUT CONTRAST HISTORY: stroke - vasculitis COMPARISON: None. TECHNIQUE: Multiplanar, multisequence MR images of the brain were obtained without intravenous contrast enhancement. FINDINGS: HEMORRHAGE: No acute parenchymal, subarachnoid or extra-axial hemorrhage. No hemosiderin deposits identified. DWI: No evidence of an acute or early subacute infarction seen on diffusion weighted sequence. . BRAIN PARENCHYMA: Very mild diffuse/confluent prolonged T2 signal changes noted within the periventricular white matter which are nonspecific though may represent mild chronic sequela of small vessel disease. . VENTRICLES: No evidence of obstructive hydrocephalus CRANIUM: Calvarium appears grossly unremarkable ORBITS: Orbits and contents unremarkable. PARANASAL SINUSES/MASTOIDS: Clear VASCULAR SYSTEM: Visualized major vascular flow voids at skull base are patent. OTHER FINDINGS: The paranasal and mastoid air complexes are well-developed and currently well-aerated. IMPRESSION: No acute intracranial hemorrhage or acute infarct. Mild chronic white matter ischemic changes.
--- NOTE | 2016-09-16 10:51 | MRI ---
MRA of the neck dated 09/15/2016. History: Stenosis. 2D and 3D [id number] MR angiography of the cervical circulations performed. Correlation made with concurrent MRA brain. The examination is somewhat limited by motion artifact Findings: The visualized portions of the mid to distal common carotid arteries, carotid bifurcations and internal carotid arteries are widely patent without occlusion or significant stenosis. No evidence to suggest dissection The vertebral arteries are visible throughout the right-side of which appears to be minimally larger in caliber/more dominant than the left. No evidence of significant stenosis. No evidence to suggest dissection. Impression: Slightly limited motion degraded study. No evidence of occlusion or significant stenosis
--- NOTE | 2016-09-16 10:56 | MRI ---
MRA brain 09/15/2016. History: Vasculitis. 3D [id number] MR angiography of the intracranial circulation performed. Correlation made with concurrent MRA neck and MRI brain. Findings: The visualized portions of the distal internal carotid arteries including the petrous, cavernous and supraclinoid segments are patent without evidence of occlusion or significant stenosis so far as can be seen. There is a origin of the right posterior cerebral artery. No evidence to suggest vasculitis of the larger intracerebral vasculature. No evidence of the distal vertebral arteries are also patent. Basilar artery is patent. 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 The distal right and left posterior cerebral arteries unremarkable. No evidence of large aneurysm nor vascular malformation. Impression: No evidence of occlusion significant stenosis or large aneurysm nor vascular malformation. No evidence to suggest vasculitis in the larger visualized segments.
--- NOTE | 2016-09-16 12:09 | CP.PCM.PN ---
Subjective - Date & Time of Evaluation Date of Evaluation: 09/15/16 Time of Evaluation: 08:30 - Subjective Subjective: General Surgery Pt S&E, NAEO. Head pain and nausea improved, no other C/O Objective - Vital Signs/Intake and Output Vital Signs (last 24 hours): Temp Pulse Resp BP Pulse Ox 99 F 85 18 150/82 97 09/16/16 08:43 09/16/16 08:43 09/16/16 08:43 09/16/16 08:43 09/16/16 08:43 Intake and Output: 09/16/16 09/16/16 06:59 18:59 Intake Total 100 Balance 100 - Medications Medications: Current Medications Acetaminophen (Tylenol 325 Mg Supp) 325 mg [place] Q4 PRN PRN Reason: Headache Last Admin: 09/16/16 07:02 Dose: 325 mg Calcitriol (Rocaltrol) 0.25 mcg PO DAILY [facility] Last Admin: 09/16/16 09:40 Dose: 0.25 mcg Epoetin Arash (Procrit) 10,000 unit IV TTS [facility] Stop: 09/26/16 10:01 Last Admin: 09/15/16 11:50 Dose: 10,000 unit Famotidine (Pepcid) 20 mg PO DAILY [facility] Last Admin: 09/16/16 09:40 Dose: 20 mg Ferric Sodium Gluconate Complex (Ferrlecit) 62.5 mg IVPB QWK [facility] Stop: 10/01/16 10:01 Heparin Sodium (Porcine) (Heparin) 5,000 units SC Q12 [facility] Last Admin: 09/16/16 09:40 Dose: 5,000 units Hydralazine HCl (Apresoline) 75 mg PO Q8H [facility] Last Admin: 09/16/16 08:43 Dose: 75 mg Metoclopramide HCl (Reglan) 10 mg IVP Q6 PRN PRN Reason: Nausea/Vomiting Prednisone (Prednisone Tab) 60 mg PO DAILY [facility] Last Admin: 09/16/16 09:41 Dose: 60 mg - Labs Labs: 09/16/16 07:19 09/16/16 07:19 PT 11.2 SECONDS (9.7-12.2) 09/14/16 16:33 INR 1.0 09/14/16 16:33 APTT 29 SECONDS (21-34) 03/27/17 16:33 - Constitutional Appears: Well, No Acute Distress - Head Exam Head Exam: ATRAUMATIC, NORMOCEPHALIC - Eye Exam Eye Exam: EOMI. absent: Scleral icterus - Respiratory Exam Respiratory Exam: Clear to Ausculation Bilateral, NORMAL BREATHING PATTERN - Cardiovascular Exam Cardiovascular Exam: REGULAR RHYTHM. absent: JVD - GI/Abdominal Exam GI & Abdominal Exam: Soft. absent: Distended, Firm, Tenderness - Neurological Exam Neurological Exam: Alert, Awake - Skin Skin Exam: Dry, Warm Additional comments: RIJ Permacath site mildly TTP, non erythematous, not swollen Assessment and Plan - Assessment and Plan (Free Text) Assessment: 56F with acute on chronic renal failure s/p R IJ permacath insertion POD# 2 Plan: -f/u vein mapping -Left arm precautions -HD today -AVF planned for D/W Dr. Missy Ardon PGY3
--- NOTE | 2016-09-16 13:31 | CP.PCM.PN ---
<Edilma Hyde - Last Filed: 09/16/16 13:27> Subjective - Date & Time of Evaluation Date of Evaluation: 09/16/16 Time of Evaluation: 07:40 - Subjective Subjective: Internal medicine progress note for Hospitalist service- Edilma Hyde, PGY-1 Pt S & E at bedside. Pt reports R eye pain/headache much improved, nausea much improved, is tolerating liquids ok, last BM yesterday. 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 Denies F/C, SOB, CP. Objective - Vital Signs/Intake and Output Vital Signs (last 24 hours): Temp Pulse Resp BP Pulse Ox 99 F 86 18 150/82 97 09/16/16 08:43 09/16/16 10:00 09/16/16 08:43 09/16/16 08:43 09/16/16 08:43 Intake and Output: 09/16/16 09/16/16 06:59 18:59 Intake Total 100 Balance 100 - Medications Medications: Current Medications Acetaminophen (Tylenol 325 Mg Supp) 325 mg [place] Q4 PRN PRN Reason: Headache Last Admin: 09/16/16 07:02 Dose: 325 mg Calcitriol (Rocaltrol) 0.25 mcg PO DAILY [facility] Last Admin: 09/16/16 09:40 Dose: 0.25 mcg Epoetin Arash (Procrit) 10,000 unit IV TTS [facility] Stop: 09/26/16 10:01 Last Admin: 09/15/16 11:50 Dose: 10,000 unit Famotidine (Pepcid) 20 mg PO DAILY [facility] Last Admin: 09/16/16 09:40 Dose: 20 mg Ferric Sodium Gluconate Complex (Ferrlecit) 62.5 mg IVPB QWK [facility] Stop: 10/01/16 10:01 Heparin Sodium (Porcine) (Heparin) 5,000 units SC Q12 [facility] Last Admin: 09/16/16 09:40 Dose: 5,000 units Hydralazine HCl (Apresoline) 75 mg PO Q8H [facility] Last Admin: 09/16/16 08:43 Dose: 75 mg Metoclopramide HCl (Reglan) 10 mg IVP Q6 PRN PRN Reason: Nausea/Vomiting Prednisone (Prednisone Tab) 60 mg PO DAILY [facility] Last Admin: 09/16/16 09:41 Dose: 60 mg - Labs Labs: 09/16/16 07:19 03/29/17 07:19 PT 11.2 SECONDS (9.7-12.2) 09/14/16 16:33 INR 1.0 09/14/16 16:33 APTT 29 SECONDS (21-34) 09/14/16 16:33 - Constitutional Appears: Non-toxic, No Acute Distress - Head Exam Head Exam: ATRAUMATIC, NORMAL INSPECTION, NORMOCEPHALIC - Eye Exam Eye Exam: EOMI, Normal appearance, PERRL Pupil Exam: NORMAL ACCOMODATION, PERRL - ENT Exam ENT Exam: Mucous Membranes Moist, Normal Exam - Neck Exam Neck Exam: Full ROM, Normal Inspection - Respiratory Exam Respiratory Exam: Chest Wall Tenderness (over Right chest wall HD catheter insertion site- no erythema or drainage noted), Clear to Ausculation Bilateral, NORMAL BREATHING PATTERN. absent: Rales, Rhonchi, Wheezes - Cardiovascular Exam Cardiovascular Exam: REGULAR RHYTHM, +S1, +S2 - GI/Abdominal Exam GI & Abdominal Exam: Soft, Normal Bowel Sounds. absent: Distended, Firm, Guarding, Rigid, Tenderness - Extremities Exam Extremities Exam: Full ROM, Normal Inspection. absent: Pedal Edema, Tenderness - Back Exam Back Exam: Full ROM, NORMAL INSPECTION - Neurological Exam Neurological Exam: Alert, Awake, CN II-XII Intact, Oriented x3 - Psychiatric Exam Psychiatric exam: Normal Affect, Normal Mood - Skin Skin Exam: Dry, Intact, Normal Color, Warm Assessment and Plan - Assessment and Plan (Free Text) Assessment: Headache ESR 65 from 65 FU ESR from today Prednisone 60mg Daily CT brain - negative Neck MRA w/Slightly limited motion degraded study. No evidence of occlusion or significant stenosis Head MRA w/No evidence of occlusion significant stenosis or large aneurysm nor vascular malformation. No evidence to suggest vasculitis in the larger visualized segments. CT brain w/o cont w/findings of No acute intracranial hemorrhage or acute infarct. Mild chronic white matter ischemic changes. Neuro following- Kush- cont current mgmt at this time Acute Renal Failure s/p HD catheter insertion into R chest wall BUN 30 from 52 Cr 6.7 from 8.5 Renal diet No IVF Nephro- Pt for HD TTS, Procrit Surgery recs- FU Vein mapping today, L arm precautions, HD today, AVF planned for 09/17, NPO after MN tonight, anticoagulation held after MN Anemia, likely due to chronic kidney disease Hgb 7.5 from 7.8 Hct 22.2 from 23.2 Retic count 2.1 On procrit as per nephro FU FOB Monitor for bleeding HTN BP 150/82 Cont Hydralazine 75mg Q8H ARACELY Monitor Nausea Reglan Monitor Pruritis - resolved Benadryl 25mg Q8H PRN -d/c'd Monitor GI/DVT ppx Pepcid SCDs Heparin - to be held tonight at [facility] for OR in AM Dispo Pain mgmt for headadche OR tomorrow for AVF NPO after MN Heparin held after MN DW attending <Erna Calloway V - Last Filed: 09/16/16 18:44> Objective - Vital Signs/Intake and Output Vital Signs (last 24 hours): Temp Pulse Resp BP Pulse Ox 98.4 F 87 20 157/85 H 97 09/16/16 15:54 09/16/16 15:54 09/16/16 15:54 09/16/16 15:54 09/16/16 15:54 Intake and Output: 09/16/16 09/16/16 06:59 18:59 Intake Total 100 Balance 100 - Medications Medications: Current Medications Acetaminophen (Tylenol 325 Mg Supp) 325 mg [place] Q4 PRN PRN Reason: Headache Last Admin: 09/16/16 07:02 Dose: 325 mg Calcitriol (Rocaltrol) 0.25 mcg PO DAILY [facility] Last Admin: 09/16/16 09:40 Dose: 0.25 mcg Epoetin Arash (Procrit) 10,000 unit IV TTS [facility] Stop: 09/26/16 10:01 Last Admin: 09/15/16 11:50 Dose: 10,000 unit Famotidine (Pepcid) 20 mg PO DAILY [facility] Last Admin: 09/16/16 09:40 Dose: 20 mg Ferric Sodium Gluconate Complex (Ferrlecit) 62.5 mg IVPB QWK [facility] Stop: 10/01/16 10:01 Hydralazine HCl (Apresoline) 75 mg PO Q8H [facility] Last Admin: 09/16/16 08:43 Dose: 75 mg Metoclopramide HCl (Reglan) 10 mg IVP Q6 PRN PRN Reason: Nausea/Vomiting Prednisone (Prednisone Tab) 60 mg PO DAILY [facility] Last Admin: 09/16/16 09:41 Dose: 60 mg - Labs Labs: 09/16/16 07:19 09/16/16 07:19 PT 11.2 SECONDS (9.7-12.2) 09/14/16 16:33 INR 1.0 09/14/16 16:33 APTT 29 SECONDS (21-34) 09/14/16 16:33 Attending/Attestation - Attestation I have personally seen and examined this patient.: Yes I have fully participated in the care of the patient.: Yes I have reviewed all pertinent clinical information, including history, physical exam and plan: Yes Notes (Text): Patient seen, examined, and case discussed with day-time resident. Patient seen during rounds today. Patient reports headache has resolved, denies associated blurry vision. Patient reports nausea and vomitting have resolved, requesting to eat regular diet. Patient completed Head MRA, Brain MRI, and Neck MRA which no acute findings reported. Per neurology, will not start Carbmazepine at this time. Repeat ESR shows downtrending; Will continue steroid PO therapy. Patient is going to AVF creation tomorrow per surgery. Heparin held in light of surgery. Patient's stool occult blood is negative. Patient likely has anemia of chronic disease. Will be recommended to follow-up with GI outpatient for screening baseline colonoscopy since she has not one yet. Case management referral for dialysis placement. Hepatitis panel negative. Patient advised strongly at bedside to be adherent to taking her medications. Blood pressure controlled currently. Assessment/Plan 1) Metabolic Acidosis, Chronic Kidney Disease * Nephrology (Dr. Orosco) on board * Vascular surgeon (Dr. Louis) on board * Dialysis scheduled T//Wed * metabolic acidosis improved upon starting dialysis * Vein mapping completed * Going for AVF creation tomorrow 09/17; NPO after midnight heparin held 2) Anemia * Chronic; anemia of chronic disease * Iron and % iron levels are normal; ferritin normal, hgb low, tibc low * Stool occult blood negative. reticulocyte count: normal * No prior GI workup; recommended f/u GI outpatient for screening baseline colonoscopy * started on Epocrit 10,000 IV T//Sat 3) Hyperkalemia * Normalized 4) Uncontrolled hypertension * Controlled * c/w hydralazine 75mg PO Q 8 hours * monitor vital signs * Patient is currently on dialysis T//Wed schedule 5) Chronic Headache * Resolved * Neurology (Dr. Currie) on board * Patient had elevated ESR on admission * Patient started on Prednisone 60mg PO to cover for empiric treatment for temporal arteritis; note on my exam, patient reports headaches improved, no associated eye symptoms, and reports associated dizziness * Pending Brain MRI, and Head MRA result * ESR improved from 65-->27 * Brain MRI (09/15/16): no acute infarction and no intercranial hemorrhage; mild chronic white matter changes * Head MRA (09/15/16): no evidence of significant stenosis, aneurysm, no occlusion * Neck MRA (09/15/16): no evidence of signficiant occlusion or stenosis 6) Prophylactic care * held Heparin 5000 units subq 12 hours for DVT ppx * Pepcid 20mg PO daily for gi pxx * Dialysis placement per case management; hepatitis panel negative; pending hep B surface Ab * NPO for AVF creation tomorrow
--- NOTE | 2016-09-16 15:33 | VASCLAB ---
PROCEDURE: Upper Extremity Venous Duplex Exam HISTORY: AVF planning PRIORS: None. TECHNIQUE: Bilateral upper extremity, internal jugular, subclavian, axillary, brachial, ulnar, radial, basilic and upper cephalic veins were evaluated. Flow was assessed with color Doppler, compressibility, assessment of phasic flow and augmentation response. Report prepared by Smooth Hirsch, DMITRY, RVT FINDINGS: RIGHT: 1. Internal Jugular Vein: Compressibility - Fully compressible: Thrombus - None : Flow - Phasic 2. Subclavian Vein:Compressibility - Fully compressible: Thrombus - None : Flow - Phasic 3. Axillary Vein: Compressibility - Fully compressible: Thrombus - None 4. Brachial Vein: Compressibility - Fully compressible: Thrombus - None 5. Ulnar Vein:Compressibility - Fully compressible: Thrombus - None 6. Radial Vein:Compressibility - Fully compressible: Thrombus - None 7. Cephalic Vein: Compressibility - Fully compressible: thrombus - None 7.1. Upper Arm: Proximal Diameter: 0.27cm. Mid Diameter: 0.14cm. Distal Diameter: 0.18cm. Antecubital Diameter:0.17cm. 8. Basilic Vein:Compressibility - Fully compressible: thrombus - None 8.1. Upper Arm:Proximal Diameter: 0.25cm. Mid Diameter: 0.18cm. Distal Diameter: 0.19cm. 8.2. Forearm: Proximal Diameter: 0.14cm. LEFT: 1. Internal Jugular Vein: Compressibility - Fully compressible: Thrombus - None : Flow - Phasic 2. Subclavian Vein:Compressibility - Fully compressible: Thrombus - None : Flow - Phasic 3. Axillary Vein: Compressibility - Fully compressible: Thrombus - None 4. Brachial Vein: Compressibility - Fully compressible: Thrombus - None 5. Ulnar Vein:Compressibility - Fully compressible: Thrombus - None 6. Radial Vein:Compressibility - Fully compressible: Thrombus - None 7. Cephalic Vein: Compressibility - Fully compressible: thrombus - None 7.1. Upper Arm: Proximal Diameter: 0.14cm. 8. Basilic Vein:Compressibility - Fully compressible: thrombus - None 8.1. Upper Arm:Proximal Diameter: 0.23cm. Mid Diameter: 0.16cm. Distal Diameter: 0.23cm. Antecubital Diameter:0.20cm. 8.2. Forearm: Proximal Diameter: 0.13cm. OTHER FINDINGS: Right: None. Left: None. IMPRESSION: Right: Diameter measurements of the right cephalic vein is measured between 0.14 cm and 0.27 cm and basilic vein is measured between 0.14 cm and 0.25 cm. Left: Diameter measurements of the left cephalic vein is measured between 0.14 cm at the proximal upper arm level and basilic vein is measured between 0.13cm and 0.23cm.
--- NOTE | 2016-09-16 18:24 | CP.PCM.PN ---
Subjective - Date & Time of Evaluation Date of Evaluation: 09/16/16 Time of Evaluation: 06:25 - Subjective Subjective: Feels much better today. Noheadache or vomiting Objective - Vital Signs/Intake and Output Vital Signs (last 24 hours): Temp Pulse Resp BP Pulse Ox 98.4 F 87 20 157/85 H 97 09/16/16 15:54 09/16/16 15:54 09/16/16 15:54 09/16/16 15:54 09/16/16 15:54 Intake and Output: 09/16/16 09/16/16 06:59 18:59 Intake Total 100 Balance 100 - Medications Medications: Current Medications Acetaminophen (Tylenol 325 Mg Supp) 325 mg [place] Q4 PRN PRN Reason: Headache Last Admin: 09/16/16 07:02 Dose: 325 mg Calcitriol (Rocaltrol) 0.25 mcg PO DAILY [facility] Last Admin: 09/16/16 09:40 Dose: 0.25 mcg Epoetin Arash (Procrit) 10,000 unit IV TTS [facility] Stop: 09/26/16 10:01 Last Admin: 09/15/16 11:50 Dose: 10,000 unit Famotidine (Pepcid) 20 mg PO DAILY [facility] Last Admin: 09/16/16 09:40 Dose: 20 mg Ferric Sodium Gluconate Complex (Ferrlecit) 62.5 mg IVPB QWK [facility] Stop: 10/01/16 10:01 Heparin Sodium (Porcine) (Heparin) 5,000 units SC Q12 [facility] Last Admin: 09/16/16 09:40 Dose: 5,000 units Hydralazine HCl (Apresoline) 75 mg PO Q8H [facility] Last Admin: 09/16/16 08:43 Dose: 75 mg Metoclopramide HCl (Reglan) 10 mg IVP Q6 PRN PRN Reason: Nausea/Vomiting Prednisone (Prednisone Tab) 60 mg PO DAILY [facility] Last Admin: 09/16/16 09:41 Dose: 60 mg - Labs Labs: 09/16/16 07:19 09/16/16 07:19 PT 11.2 SECONDS (9.7-12.2) 09/14/16 16:33 INR 1.0 09/14/16 16:33 APTT 29 SECONDS (21-34) 09/14/16 16:33 - Respiratory Exam Additional comments: Lungs clear - Cardiovascular Exam Cardiovascular Exam: REGULAR RHYTHM - Extremities Exam Additional comments: No edema Assessment and Plan - Assessment and Plan (Free Text) Assessment: ESRd on HD HTN Anemia. On Epogen. Ferrlecit was added Plan: HD will be TTS Tolerating dialysis well AVF creation planned for tomorrow
[2016-09-17] MEDS ORDERED: ceFAZolin IV 1 gm in Dextrose 0 ML IVPB ONE (07:19)
[2016-09-17 07:26] LABS: BASO % 0.1 % (0.0-2.0); HEMATOCRIT 21.1 % (34.0-47.0); LYMPH # 1.7 K/uL (1.0-4.3); LYMPH % 11.6 % (20.0-40.0); MEAN CELL VOLUME 81.8 fL (81.0-99.0); MEAN CORPUSCULAR HEMOGLOBIN 27.2 pg (27.0-31.0); MEAN CORPUSCULAR HGB CONC 33.2 g/dL (33.0-37.0); MEAN PLATELET VOLUME 7.6 fL (7.2-11.7); MONO # 1.1 K/uL (0.0-0.8); MONO % 7.3 % (0.0-10.0); NRBC % 0.1 % (0.0-2.0); RED CELL DISTRIBUTION WIDTH 14.7 % (11.5-14.5)
[2016-09-17 07:30] LABS: POTASSIUM 4.7 mmol/L (3.6-5.2)
[2016-09-17 07:32] LABS: ALB/GLOB RATIO 1.3 (1.0-2.1); BILIRUBIN,TOTAL 0.3 mg/dL (0.2-1.3)
[2016-09-17 07:33] LABS: CALCIUM 8.6 mg/dl (8.6-10.4); MAGNESIUM 2.1 mg/dL (1.6-2.3); PHOSPHOROUS 5.2 mg/dL (2.5-4.5)
[2016-09-17] MEDS ORDERED: HEPARIN-NS 5,000 UNITS/500 ML 500 ML IV ONE (07:44)
--- NOTE | 2016-09-17 09:33 | CP.PCM.PN ---
<Edilma Hyde - Last Filed: 09/17/16 15:27> Subjective - Date & Time of Evaluation Date of Evaluation: 09/17/16 Time of Evaluation: 07:10 - Subjective Subjective: Internal medicine progress note for Hospitalist service- Edilma Hyde, PGY-1 Pt S & E at bedside. Pt reports headache much improved, now just has a little pain. Has some abdominal pain from attemping to BM - straining. Otherwise doing ok, denies N/V /F/C, SOB, CP. Is urinating ok. Objective - Vital Signs/Intake and Output Vital Signs (last 24 hours): Temp Pulse Resp BP Pulse Ox 98.3 F 78 18 182/94 H 97 09/17/16 08:40 09/17/16 08:40 09/17/16 08:40 09/17/16 09:10 09/17/16 08:40 - Medications Medications: Current Medications Acetaminophen (Tylenol 325 Mg Supp) 325 mg FL Q4 PRN PRN Reason: Headache Last Admin: 09/16/16 07:02 Dose: 325 mg Calcitriol (Rocaltrol) 0.25 mcg PO DAILY [facility] Last Admin: 09/16/16 09:40 Dose: 0.25 mcg Epoetin Arash (Procrit) 10,000 unit IV TTS [facility] Stop: 09/26/16 10:01 Last Admin: 09/15/16 11:50 Dose: 10,000 unit Famotidine (Pepcid) 20 mg PO DAILY [facility] Last Admin: 09/16/16 09:40 Dose: 20 mg Ferric Sodium Gluconate Complex (Ferrlecit) 62.5 mg IVPB QWK [facility] Stop: 10/01/16 10:01 Hydralazine HCl (Apresoline) 75 mg PO Q8H [facility] Last Admin: 09/17/16 00:15 Dose: 75 mg Metoclopramide HCl (Reglan) 10 mg IVP Q6 PRN PRN Reason: Nausea/Vomiting Prednisone (Prednisone Tab) 60 mg PO DAILY [facility] Last Admin: 09/16/16 09:41 Dose: 60 mg - Labs Labs: 09/17/16 06:53 09/17/16 06:53 PT 11.2 SECONDS (9.7-12.2) 09/14/16 16:33 INR 1.0 03/27/17 16:33 APTT 29 SECONDS (21-34) 09/14/16 16:33 - Constitutional Appears: Non-toxic, No Acute Distress - Head Exam Head Exam: ATRAUMATIC, NORMAL INSPECTION, NORMOCEPHALIC - Eye Exam Eye Exam: EOMI, Normal appearance, PERRL Pupil Exam: NORMAL ACCOMODATION, PERRL - ENT Exam ENT Exam: Mucous Membranes Moist, Normal Exam - Neck Exam Neck Exam: Full ROM, Normal Inspection - Respiratory Exam Respiratory Exam: Chest Wall Tenderness (over HD catheter incision site - no erythema or drainage noted), Clear to Ausculation Bilateral, NORMAL BREATHING PATTERN. absent: Rales, Rhonchi, Wheezes - Cardiovascular Exam Cardiovascular Exam: REGULAR RHYTHM, +S1, +S2 - GI/Abdominal Exam GI & Abdominal Exam: Soft, Tenderness (minimal, epigastric and lower quadrants) , Normal Bowel Sounds - Extremities Exam Extremities Exam: Full ROM, Normal Inspection. absent: Pedal Edema, Tenderness - Neurological Exam Neurological Exam: Alert, Awake, Oriented x3 - Psychiatric Exam Psychiatric exam: Normal Affect, Normal Mood - Skin Skin Exam: Dry, Intact, Normal Color, Warm Assessment and Plan - Assessment and Plan (Free Text) Assessment: Headache ESR 27 from 65 - down trending Prednisone 60mg Daily CT brain - negative Neck MRA w/Slightly limited motion degraded study. No evidence of occlusion or significant stenosis Head MRA w/No evidence of occlusion significant stenosis or large aneurysm nor vascular malformation. No evidence to suggest vasculitis in the larger visualized segments. CT brain w/o cont w/findings of No acute intracranial hemorrhage or acute infarct. Mild chronic white matter ischemic changes. Neuro following- Kush- cont current mgmt at this time Acute Renal Failure s/p HD catheter insertion into R chest wall BUN 55 from 30 Cr 8.6 from 6.7 Hep panel neg RPR neg Renal diet Nephro- Pt for HD TTS, Procrit Surgery recs- L arm precautions, AVF planned for today, NPO after MN tonight, anticoagulation held after MN Vein mapping - R cephalic Vein 0.14-0.27 cm, R basilic vein 0.14- 0.25cm L cephalic vein 0.14 at prox upper arm level, L basilic vein 0.13-0.23cm Leukocytosis WBC 15.0 On steroids- likely reactive Afebrile over last 24H Anemia, likely due to chronic kidney disease Hgb 7.0 from 7.5 Hct 21.1 from 22.2 Retic count 2.1 On procrit as per nephro FOB neg Type/Cross 1 unit pRBCs ordered PTH intact whole molecule high - 563 FT4 1.26 TSH 3.65 Monitor for bleeding HTN BP 142/86 Cont Hydralazine 75mg Q8H [facility] Monitor Nausea Reglan Monitor GI/DVT ppx Pepcid SCDs Heparin - to be held tonight at [facility] for OR Dispo: Pain mgmt for headache OR today for AVF NPO after MN Heparin held after MN Spoke to SW regarding HD placement after hospitalization- in progress DW attending <Erna Calloway V - Last Filed: 09/17/16 23:30> Objective - Vital Signs/Intake and Output Vital Signs (last 24 hours): Temp Pulse Resp BP Pulse Ox 98.3 F 103 H 20 135/74 98 09/17/16 17:09 09/17/16 17:09 09/17/16 17:09 09/17/16 17:09 09/17/16 17:09 Intake and Output: 09/17/16 09/18/16 18:59 06:59 Intake Total 250 Balance 250 - Medications Medications: Current Medications Acetaminophen (Tylenol 325 Mg Supp) 325 mg FL Q4 PRN PRN Reason: Headache Last Admin: 09/16/16 07:02 Dose: 325 mg Calcitriol (Rocaltrol) 0.25 mcg PO DAILY [facility] Last Admin: 09/17/16 13:50 Dose: Not Given Epoetin Arash (Procrit) 10,000 unit IV TTS [facility] Stop: 09/26/16 10:01 Last Admin: 09/17/16 09:40 Dose: 10,000 unit Famotidine (Pepcid) 20 mg PO DAILY [facility] Last Admin: 09/17/16 13:49 Dose: Not Given Ferric Sodium Gluconate Complex (Ferrlecit) 62.5 mg IVPB QWK [facility] Stop: 10/01/16 10:01 Hydralazine HCl (Apresoline) 75 mg PO Q8H [facility] Last Admin: 09/17/16 17:00 Dose: 75 mg Hydromorphone HCl (Dilaudid) 0.5 mg IVP Q3 PRN PRN Reason: Pain, severe (8-10) Vancomycin HCl/Dextrose (Vancocin) 100 mls @ 100 mls/hr IVPB TTS [facility] Metoclopramide HCl (Reglan) 10 mg IVP Q6 PRN PRN Reason: Nausea/Vomiting Prednisone (Prednisone Tab) 60 mg PO DAILY [facility] Last Admin: 09/17/16 13:49 Dose: Not Given Tramadol HCl (Ultram) 50 mg PO TID [facility] Last Admin: 09/17/16 17:45 Dose: Not Given - Labs Labs: 09/17/16 06:53 09/17/16 06:53 PT 11.2 SECONDS (9.7-12.2) 09/14/16 16:33 INR 1.0 09/14/16 16:33 APTT 29 SECONDS (21-34) 09/14/16 16:33 Attending/Attestation - Attestation I have personally seen and examined this patient.: Yes I have fully participated in the care of the patient.: Yes I have reviewed all pertinent clinical information, including history, physical exam and plan: Yes Notes (Text): Patient seen, examined, and case discussed with day-time resident. Patient seen during rounds today while in dialysis. Patient reports headache has resolved, but reports dizziness and reports abdominal pain but reports she strains while trying to past bowel movement. denies associated blurry vision. Patient denies other acute complaints. Patient went to the OR for AV fistula creation. Patient had noted leukocytosis on exam and afebrile prior to OR today, and has been on high dose PO steroid which could be attributing to leukocytosis. Patient's stool occult blood is negative. Patient likely has anemia of chronic disease. Hgb: 7.0; recommended for type and cross 1 unit of PRBC; patient unable to receive during dialysis because she was close to finish today and had OR following dialysis. Will be recommended to follow-up with GI outpatient for screening baseline colonoscopy since she has not one yet. Case management referral for dialysis placement. Hepatitis panel negative. Assessment/Plan 1) Metabolic Acidosis, Chronic Kidney Disease * Nephrology (Dr. Orosco) on board * Vascular surgeon (Dr. Louis) on board * Dialysis scheduled T//Wed * metabolic acidosis improved upon starting dialysis * Vein mapping completed * Went for AVF creation today 09/17; underwent dialysis today 2) Anemia * Chronic; anemia of chronic disease * Iron and % iron levels are normal; ferritin normal, hgb low, tibc low * Stool occult blood negative. reticulocyte count: normal * No prior GI workup; recommended f/u GI outpatient for screening baseline colonoscopy * started on Epocrit 10,000 IV T//Wed 3) Hyperkalemia * Normalized 4) Uncontrolled hypertension * Controlled * c/w hydralazine 75mg PO Q 8 hours * monitor vital signs * Patient is currently on dialysis T//Wed schedule 5) Chronic Headache * Neurology (Dr. Currie) on board * Patient had elevated ESR on admission and down trending * Patient started on Prednisone 60mg PO to cover for empiric treatment for temporal arteritis; note on my exam, patient reports headaches improved, no associated eye symptoms, and reports associated dizziness * ESR improved from 65-->27 * Brain MRI (09/15/16): no acute infarction and no intercranial hemorrhage; mild chronic white matter changes * Head MRA (09/15/16): no evidence of significant stenosis, aneurysm, no occlusion * Neck MRA (09/15/16): no evidence of signficiant occlusion or stenosis 6) Leukocytosis * monitor WBC, afebrile prior * Patient is on high dose PO steroid 7) Prophylactic care * held Heparin 5000 units subq 12 hours for DVT ppx for OR today * Pepcid 20mg PO daily for gi pxx * Dialysis placement per case management; hepatitis panel negative; pending hep B surface Ab
[2016-09-17] MEDS: Epoetin Alfa 10,000 unit/ml Dialysis IV SCH (09:40)
--- NOTE | 2016-09-17 11:04 | CP.PCM.PN ---
Subjective - Date & Time of Evaluation Date of Evaluation: 09/17/16 Time of Evaluation: 10:00 - Subjective Subjective: Seen on dialysis. C/o headache. Appears uncomfortable due to headache Objective - Vital Signs/Intake and Output Vital Signs (last 24 hours): Temp Pulse Resp BP Pulse Ox 98.3 F 78 18 147/87 97 09/17/16 08:40 09/17/16 08:40 09/17/16 08:40 09/17/16 10:40 09/17/16 08:40 - Medications Medications: Current Medications Acetaminophen (Tylenol 325 Mg Supp) 325 mg ND Q4 PRN PRN Reason: Headache Last Admin: 09/16/16 07:02 Dose: 325 mg Calcitriol (Rocaltrol) 0.25 mcg PO DAILY [facility] Last Admin: 09/16/16 09:40 Dose: 0.25 mcg Epoetin Arash (Procrit) 10,000 unit IV TTS [facility] Stop: 09/26/16 10:01 Last Admin: 09/17/16 09:40 Dose: 10,000 unit Famotidine (Pepcid) 20 mg PO DAILY [facility] Last Admin: 09/16/16 09:40 Dose: 20 mg Ferric Sodium Gluconate Complex (Ferrlecit) 62.5 mg IVPB QWK [facility] Stop: 10/01/16 10:01 Hydralazine HCl (Apresoline) 75 mg PO Q8H [facility] Last Admin: 09/17/16 00:15 Dose: 75 mg Metoclopramide HCl (Reglan) 10 mg IVP Q6 PRN PRN Reason: Nausea/Vomiting Prednisone (Prednisone Tab) 60 mg PO DAILY [facility] Last Admin: 09/16/16 09:41 Dose: 60 mg - Labs Labs: 09/17/16 06:53 09/17/16 06:53 PT 11.2 SECONDS (9.7-12.2) 09/14/16 16:33 INR 1.0 09/14/16 16:33 APTT 29 SECONDS (21-34) 09/14/16 16:33 - Respiratory Exam Additional comments: Lungs clear - Cardiovascular Exam Cardiovascular Exam: REGULAR RHYTHM - GI/Abdominal Exam GI & Abdominal Exam: Soft - Extremities Exam Additional comments: no edema or cyanosis Assessment and Plan - Assessment and Plan (Free Text) Assessment: ESRD on HD TTS Anemia. On Epogen & Ferrleci weakly HTN Headaches ? secondary to anemia Plan: Suggest blood transfusion. Response to Epogen may take 1-2 wks For venous mapping today
[2016-09-17] MEDS ORDERED: Vancomycin 1 gm/NS 200 ml 200 ML IVPB ONE (12:00)
[2016-09-17] MEDS ORDERED: Sodium Chloride 0.9% 500 ML IV ONE (12:45)
[2016-09-17] MEDS ORDERED: Lidocaine 2% Inj (20ml) ONE (12:51)
[2016-09-17] MEDS ORDERED: Bupivacaine HCl 0.5% PF (10 ml) Inj ONE (12:51)
[2016-09-17] MEDS ORDERED: Midazolam 2 MG/2 ML VIAL ONE ×2 (12:53→13:01)
[2016-09-17] MEDS ORDERED: Propofol 10 mg/ml Inj (20 ML) ONE (12:53)
[2016-09-17] MEDS ORDERED: Papaverine Hydrochloride 30 mg/ml (2ml) ONE (13:53)
[2016-09-17] MEDS ORDERED: HYDROmorphone 0.5 mg/0.5 ml ISec IVP PRN ×2 (14:27→15:38)
--- NOTE | 2016-09-17 15:36 | PCM.SURG1 ---
Surgeon's Initial Post Op Note - Surgeon's Notes Surgeon: Dr. Louis Senior Writer: Dr. Aguilar Type of Anesthesia: Block Regional, IV Sedation Pre-Operative Diagnosis: ESRD Operative Findings: see operative report Post-Operative Diagnosis: ESRD Operation Performed: left arm brachial-basilic AV fistula Specimen/Specimens Removed: none Estimated Blood Loss: EBL {In ML}: 25 Blood Products Given: N/A Drains Used: No Drains Post-Op Condition: Good Date of Surgery/Procedure: 09/17/16 Time of Surgery/Procedure: 15:36
--- NOTE | 2016-09-17 15:51 | OP ---
PROCEDURE DATE: 09/17/2016 PREOPERATIVE DIAGNOSIS: Renal failure. POSTOPERATIVE DIAGNOSIS: Renal failure. PROCEDURE CARRIED OUT: Brachiobasilic fistula, left elbow. SURGEON: Dr. Louis FARM AGENT: Dr. Aguilar ANESTHESIOLOGIST: Mr. ____ ANESTHESIA: Supraclavicular block. INDICATIONS: The patient is a 56-year-old woman who required urgent dialysis and has dialysis cathet er placed. The preoperative imaging including in the room ultrasound examination of her vein reveale d that she had a patent cephalic vein at the wrist, but approximately 3-4 inches above the wrist, thi s petered out and was no longer existent. More importantly, in the upper portion of her arm, the cep halic vein was poorly developed and the only decent vein in the arm was a basilic vein. PROCEDURE: After marking the veins and the adjacent arteries, the vessels were dissected free, anast omosed using loupe magnification and heparin anticoagulation in a spatulated end-to-side fashion. Af ter this had been done, there was excellent flow through the fistula, with good pulse at the wrist an d excellent flow through the fistula as evidenced by a palpable thrill. After completion of this, th e wound was closed with Monocryl and fine nylon sutures on the skin. Blood loss of procedure was 20- 25 mL. Heparin was not reversed at the end. OPERATION CARRIED OUT: Brachiobasilic fistula, left elbow. It is likely that the patient will require elevation of this fistula in the near future as this proce dure was carried out to the basilic vein. Anthony Louis Jr., MD cc:Ness Orosco MD 56 TT: 09/17/2016 15:50:13
--- NOTE | 2016-09-17 19:52 | CARD ---
APPROVED REPORT EKG Measurement Heart [id number] <Conclusion> Normal sinus rhythm Normal ECG
[2016-09-18 07:13] LABS: BASO # 0.1 K/uL (0.0-0.2); BASO % 0.5 % (0.0-2.0); EOS % 0.4 % (0.0-4.0); HEMATOCRIT 21.2 % (34.0-47.0); LYMPH # 2.1 K/uL (1.0-4.3); LYMPH % 15.8 % (20.0-40.0); MEAN CELL VOLUME 83.3 fL (81.0-99.0); MEAN CORPUSCULAR HEMOGLOBIN 26.7 pg (27.0-31.0); MEAN CORPUSCULAR HGB CONC 32.1 g/dL (33.0-37.0); MEAN PLATELET VOLUME 7.6 fL (7.2-11.7); MONO # 1.1 K/uL (0.0-0.8); MONO % 8.5 % (0.0-10.0); NRBC % 0.1 % (0.0-2.0); RED CELL DISTRIBUTION WIDTH 14.7 % (11.5-14.5); WHITE BLOOD COUNT 13.2 K/uL (4.8-10.8)
[2016-09-18 07:33] LABS: ALB/GLOB RATIO 1.2 (1.0-2.1); BILIRUBIN,TOTAL 0.6 mg/dL (0.2-1.3); CALCIUM 7.4 mg/dl (8.6-10.4); MAGNESIUM 1.9 mg/dL (1.6-2.3); TOTAL PROTEIN 5.5 g/dL (6.3-8.3)
--- NOTE | 2016-09-18 07:45 | CP.PCM.PN ---
Subjective - Date & Time of Evaluation Date of Evaluation: 09/18/16 Time of Evaluation: 07:43 - Subjective Subjective: Surgery: Dr. Louis Patient doing well today. She complains of pain in the surgical site but denies pain in the hand. She states her arm still feels heavy but is getting better. She denies f/c/n/v. She has been refusing all pain meds because she is worried about getting nauseous. Per nursing no acute events overnight. Objective - Vital Signs/Intake and Output Vital Signs (last 24 hours): Temp Pulse Resp BP Pulse Ox 99.2 F 90 20 161/78 H 97 09/18/16 04:00 09/18/16 04:40 09/18/16 04:00 09/18/16 04:00 09/18/16 04:00 Intake and Output: 09/18/16 09/18/16 06:59 18:59 Intake Total 250 Balance 250 - Medications Medications: Current Medications Acetaminophen (Tylenol 325 Mg Supp) 325 mg [place] Q4 PRN PRN Reason: Headache Last Admin: 09/16/16 07:02 Dose: 325 mg Calcitriol (Rocaltrol) 0.25 mcg PO DAILY [facility] Last Admin: 09/17/16 13:50 Dose: Not Given Epoetin Arash (Procrit) 10,000 unit IV TTS [facility] Stop: 09/26/16 10:01 Last Admin: 09/17/16 09:40 Dose: 10,000 unit Famotidine (Pepcid) 20 mg PO DAILY [facility] Last Admin: 09/17/16 13:49 Dose: Not Given Ferric Sodium Gluconate Complex (Ferrlecit) 62.5 mg IVPB QWK [facility] Stop: 10/01/16 10:01 Hydralazine HCl (Apresoline) 75 mg PO Q8H [facility] Last Admin: 09/18/16 00:14 Dose: 75 mg Hydromorphone HCl (Dilaudid) 0.5 mg IVP Q3 PRN PRN Reason: Pain, severe (8-10) Vancomycin HCl/Dextrose (Vancocin) 100 mls @ 100 mls/hr IVPB TTS [facility] Metoclopramide HCl (Reglan) 10 mg IVP Q6 PRN PRN Reason: Nausea/Vomiting Prednisone (Prednisone Tab) 60 mg PO DAILY [facility] Last Admin: 09/17/16 13:49 Dose: Not Given Tramadol HCl (Ultram) 50 mg PO TID [facility] Last Admin: 09/17/16 17:45 Dose: Not Given - Labs Labs: 09/18/16 06:55 09/18/16 06:55 PT 11.2 SECONDS (9.7-12.2) 09/14/16 16:33 INR 1.0 09/14/16 16:33 APTT 29 SECONDS (21-34) 09/14/16 16:33 - Constitutional Appears: Non-toxic, No Acute Distress - Head Exam Head Exam: ATRAUMATIC, NORMOCEPHALIC - Eye Exam Eye Exam: EOMI, Normal appearance - ENT Exam ENT Exam: Mucous Membranes Moist - Respiratory Exam Respiratory Exam: NORMAL BREATHING PATTERN. absent: Respiratory Distress - Cardiovascular Exam Cardiovascular Exam: REGULAR RHYTHM. absent: Tachycardia - Extremities Exam Additional comments: + radial pulse to left arm. hand is warm. dressing CDI. - Neurological Exam Neurological Exam: Alert, Awake, Oriented x3 - Psychiatric Exam Psychiatric exam: Normal Affect, Normal Mood - Skin Skin Exam: Dry, Intact, Warm Assessment and Plan - Assessment and Plan (Free Text) Assessment: 56 y/o female s/p left arm brachial-basilic AVF creation POD1 Plan: -leave dressing in place -Dr. Louis to remove dressing in office -f/u w/ Dr. Louis in 2 weeks -cont HD through [facility] -medical management per primary -further recs per Dr. Louis AWzurdo PGY1
--- NOTE | 2016-09-18 13:28 | CP.PCM.PN ---
Subjective - Date & Time of Evaluation Date of Evaluation: 09/18/16 Time of Evaluation: 09:30 - Subjective Subjective: Nauseous & vomiting Objective - Vital Signs/Intake and Output Vital Signs (last 24 hours): Temp Pulse Resp BP Pulse Ox 99 F 84 17 159/80 H 97 09/18/16 07:15 09/18/16 07:15 09/18/16 07:15 09/18/16 07:15 09/18/16 07:15 Intake and Output: 09/18/16 09/18/16 06:59 18:59 Intake Total 250 Balance 250 - Medications Medications: Current Medications Acetaminophen (Tylenol 325 Mg Supp) [address] Q4 PRN PRN Reason: Headache Last Admin: 09/16/16 07:02 Dose: 325 mg Calcitriol (Rocaltrol) 0.25 mcg PO DAILY [facility] Last Admin: 09/18/16 10:44 Dose: 0.25 mcg Epoetin Arash (Procrit) 10,000 unit IV TTS [facility] Stop: 09/26/16 10:01 Last Admin: 09/17/16 09:40 Dose: 10,000 unit Famotidine (Pepcid) 20 mg PO DAILY [facility] Last Admin: 09/18/16 09:36 Dose: 20 mg Ferric Sodium Gluconate Complex (Ferrlecit) 62.5 mg IVPB QWK [facility] Stop: 10/01/16 10:01 Hydralazine HCl (Apresoline) 75 mg PO Q8H [facility] Last Admin: 09/18/16 08:00 Dose: 75 mg Hydromorphone HCl (Dilaudid) 0.5 mg IVP Q3 PRN PRN Reason: Pain, severe (8-10) Last Admin: 09/18/16 08:08 Dose: 0.5 mg Vancomycin HCl/Dextrose (Vancocin) 100 mls @ 100 mls/hr IVPB TTS [facility] Metoclopramide HCl (Reglan) 10 mg IVP Q6 PRN PRN Reason: Nausea/Vomiting Last Admin: 09/18/16 08:08 Dose: 10 mg Prednisone (Prednisone Tab) 50 mg PO DAILY [facility] PRN Reason: Taper Stop: 10/03/16 15:28 Tramadol HCl (Ultram) 50 mg PO TID [facility] Last Admin: 09/18/16 09:36 Dose: Not Given - Labs Labs: 09/18/16 06:55 09/18/16 06:55 PT 11.2 SECONDS (9.7-12.2) 09/14/16 16:33 INR 1.0 09/14/16 16:33 APTT 29 SECONDS (21-34) 09/14/16 16:33 - Respiratory Exam Additional comments: Lungs clear - Cardiovascular Exam Cardiovascular Exam: REGULAR RHYTHM - Extremities Exam Additional comments: Lt arm dressing C&D + bruit No pedal edema Assessment and Plan - Assessment and Plan (Free Text) Assessment: ESRD. Tolerating dialysis well SHPT S/P Lt AVF creatiion ( brachiobasilic ) Anemia Plan: Continue HD per schedule Add Hectoral For transfusion today
--- NOTE | 2016-09-18 17:28 | CP.PCM.PN ---
<Edilma Hyde - Last Filed: 09/18/16 17:26> Subjective - Date & Time of Evaluation Date of Evaluation: 09/18/16 Time of Evaluation: 07:40 - Subjective Subjective: Internal medicine progress note for Hospitalist service- Edilma Hyde, PGY-1 Pt S & E at bedside. Pt reports minor headache, now with LUE pain at surgical site. Reports insomnia due to pain, nausea. Denies V/F/C, SOB, CP, abdominal pain, requesting CLD due to nausea. Is urinating ok. Objective - Vital Signs/Intake and Output Vital Signs (last 24 hours): Temp Pulse Resp BP Pulse Ox 98.3 F 78 18 153/70 H 97 09/18/16 17:00 09/18/16 17:00 09/18/16 17:00 09/18/16 17:00 09/18/16 07:15 Intake and Output: 09/18/16 09/18/16 06:59 18:59 Intake Total 250 279 Balance 250 279 - Medications Medications: Current Medications Acetaminophen (Tylenol 325 Mg Supp) 325 mg [place] Q4 PRN PRN Reason: Headache Last Admin: 09/16/16 07:02 Dose: 325 mg Calcitriol (Rocaltrol) 0.25 mcg PO DAILY [facility] Last Admin: 09/18/16 10:44 Dose: 0.25 mcg Epoetin Arash (Procrit) 10,000 unit IV TTS [facility] Stop: 09/26/16 10:01 Last Admin: 09/17/16 09:40 Dose: 10,000 unit Famotidine (Pepcid) 20 mg PO DAILY [facility] Last Admin: 09/18/16 09:36 Dose: 20 mg Ferric Sodium Gluconate Complex (Ferrlecit) 62.5 mg IVPB QWK [facility] Stop: 10/01/16 10:01 Hydralazine HCl (Apresoline) 75 mg PO Q8H [facility] Last Admin: 09/18/16 16:39 Dose: 75 mg Hydromorphone HCl (Dilaudid) 0.5 mg IVP Q3 PRN PRN Reason: Pain, severe (8-10) Last Admin: 09/18/16 08:08 Dose: 0.5 mg Vancomycin HCl/Dextrose (Vancocin) 100 mls @ 100 mls/hr IVPB TTS [facility] Metoclopramide HCl (Reglan) 10 mg IVP Q6 PRN PRN Reason: Nausea/Vomiting Last Admin: 09/18/16 08:08 Dose: 10 mg Paricalcitol (Zemplar) 2 mcg IV TTS [facility] Prednisone (Prednisone Tab) 50 mg PO DAILY [facility] PRN Reason: Taper Stop: 10/03/16 15:28 Tramadol HCl (Ultram) 50 mg PO TID [facility] Last Admin: 09/18/16 15:25 Dose: Not Given - Labs Labs: 09/18/16 06:55 09/18/16 06:55 PT 11.2 SECONDS (9.7-12.2) 09/14/16 16:33 INR 1.0 09/14/16 16:33 APTT 29 SECONDS (21-34) 09/14/16 16:33 Assessment and Plan - Assessment and Plan (Free Text) Assessment: Headache ESR 23 from 27 - down trending Prednisone taper started CT brain - negative Neck MRA w/Slightly limited motion degraded study. No evidence of occlusion or significant stenosis Head MRA w/No evidence of occlusion significant stenosis or large aneurysm nor vascular malformation. No evidence to suggest vasculitis in the larger visualized segments. CT brain w/o cont w/findings of No acute intracranial hemorrhage or acute infarct. Mild chronic white matter ischemic changes. Neuro following- Kush- cont current mgmt at this time Acute Renal Failure s/p HD catheter insertion into R chest wall and AVF creation , POD#1 BUN 55 from 30 Cr 8.6 from 6.7 Hep panel neg RPR neg Renal diet Nephro- Pt for HD TTS w/vancomycin, Procrit, Zemplar, Ferric Sodium Gluconate Surgery recs- L arm precautions, AVF created, POD #1, Leave dressing in place, Dr. Louis to remove it in office in 2 wks, cont HD via permacath Leukocytosis WBC 13.2 from 15.0 On steroids- likely reactive Afebrile over last 24H FU blood cxr FU urine cxr Anemia, likely due to chronic kidney disease Hgb 6.8 from 7.0 Hct 21.2 from 21.1 Retic count 2.1 On procrit as per nephro FOB neg Type/Cross 1 unit pRBCs ordered- transfuse PTH intact whole molecule high - 563 FT4 1.26 TSH 3.65 Monitor for bleeding HTN BP 142/86 Cont Hydralazine 75mg Q8H [facility] Monitor Nausea Reglan CLD Monitor GI/DVT ppx Pepcid SCDs Dispo: Pain mgmt for headache CLD due to nausea Spoke to SW regarding HD placement after hospitalization- in progress DW attending <Erna Calloway V - Last Filed: 09/19/16 13:04> Objective - Vital Signs/Intake and Output Vital Signs (last 24 hours): Temp Pulse Resp BP Pulse Ox 98.6 F 74 18 166/86 H 97 09/19/16 11:50 09/19/16 11:50 09/19/16 11:50 09/19/16 11:50 09/19/16 08:50 Intake and Output: 09/19/16 09/19/16 06:59 18:59 Intake Total 1169 Balance 1169 - Medications Medications: Current Medications Acetaminophen (Tylenol 325 Mg Supp) 325 mg [place] Q4 PRN PRN Reason: Headache Last Admin: 09/16/16 07:02 Dose: 325 mg Calcitriol (Rocaltrol) 0.25 mcg PO DAILY [facility] Last Admin: 09/19/16 12:37 Dose: 0.25 mcg Cyclobenzaprine HCl (Flexeril) 5 mg PO ONCE ONE Stop: 09/19/16 14:01 Last Admin: 09/19/16 12:40 Dose: 5 mg Epoetin Arash (Procrit) 10,000 unit IV TTS [facility] Stop: 09/26/16 10:01 Last Admin: 09/19/16 11:47 Dose: 10,000 unit Famotidine (Pepcid) 20 mg PO DAILY [facility] Last Admin: 09/19/16 12:38 Dose: 20 mg Ferric Sodium Gluconate Complex (Ferrlecit) 62.5 mg IVPB QWK [facility] Stop: 10/01/16 10:01 Hydralazine HCl (Apresoline) 75 mg PO Q8H [facility] Last Admin: 09/19/16 08:00 Dose: Not Given Hydromorphone HCl (Dilaudid) 0.5 mg IVP Q3 PRN PRN Reason: Pain, severe (8-10) Last Admin: 09/18/16 08:08 Dose: 0.5 mg Vancomycin HCl/Dextrose (Vancocin) 100 mls @ 100 mls/hr IVPB TTS [facility] Last Admin: 09/19/16 12:36 Dose: 100 mls/hr Metoclopramide HCl (Reglan) 10 mg IVP Q6 PRN PRN Reason: Nausea/Vomiting Last Admin: 09/18/16 08:08 Dose: 10 mg Paricalcitol (Zemplar) 2 mcg IV TTS [facility] Last Admin: 09/19/16 11:45 Dose: 2 mcg Prednisone (Prednisone Tab) 50 mg PO DAILY [facility] PRN Reason: Taper Stop: 10/03/16 15:28 Last Admin: 09/19/16 12:37 Dose: 50 mg Tramadol HCl (Ultram) 50 mg PO TID [facility] Last Admin: 09/19/16 10:00 Dose: Not Given - Labs Labs: 09/19/16 08:19 09/19/16 08:19 PT 11.2 SECONDS (9.7-12.2) 09/14/16 16:33 INR 1.0 09/14/16 16:33 APTT 29 SECONDS (21-34) 09/14/16 16:33 Attending/Attestation - Attestation I have personally seen and examined this patient.: Yes I have fully participated in the care of the patient.: Yes I have reviewed all pertinent clinical information, including history, physical exam and plan: Yes Notes (Text): This is late computer entry for 09/18/16. Patient seen, examined and case discussed with day-time resident. Overnight, patient was nauseous and vomitting. Patient seen at bedside, refusing PO medications because she is afraid they will make her throw up. Patient requesting for liquid diet. Patient's hemoglobin 6.8. Patient to be transfused 1 unit of PRBC today. Patient reports headache improved. Patient went to the OR POD 1 for AV fistula creation (left upper extremity. Patient had noted leukocytosis, which is improving and ESR supports down trending. Patient given one dose of Vancomyin yesterday during dialysis and is on Vancomycin 500mg IV TThSat. Ordered for blood and urine cultures. Monitor for fever. Case management referral for dialysis placement; pending. Physical exam - Constitutional Appears: Non-toxic, mild Acute Distress secondary to nausea - Head Exam Head Exam: ATRAUMATIC, NORMAL INSPECTION, NORMOCEPHALIC - Eye Exam Eye Exam: EOMI, Normal appearance, PERRL Pupil Exam: NORMAL ACCOMODATION, PERRL - ENT Exam ENT Exam: Mucous Membranes Moist, Normal Exam - Neck Exam Neck Exam: Full ROM, Normal Inspection - Respiratory Exam Respiratory Exam: no tenderness palpated over HD catheter incision site - no erythema or drainage noted), Clear to Ausculation Bilateral, NORMAL BREATHING PATTERN. absent: Rales, Rhonchi, Wheezes - Cardiovascular Exam Cardiovascular Exam: REGULAR RHYTHM, +S1, +S2 - GI/Abdominal Exam GI & Abdominal Exam: Soft,nontender, nondistended, Normal Bowel Sounds, no rebound, no guarding - Extremities Exam Extremities Exam: Full ROM, Normal Inspection. left upper extremity fistula ( wrapped) - Neurological Exam Neurological Exam: Alert, Awake, Oriented x3 - Psychiatric Exam Psychiatric exam: Normal Affect, Normal Mood - Skin Skin Exam: Dry, Intact, Normal Color, Warm Assessment/Plan 1) Metabolic Acidosis, Chronic Kidney Disease * Nephrology (Dr. Orocso) on board * Vascular surgeon (Dr. Louis) on board * Dialysis scheduled T//Sat * Went for AVF creation POD 1 09/18; left upper extremity; palpable 2) Anemia * Chronic; anemia of chronic disease * Iron and % iron levels are normal; ferritin normal, hgb low, tibc low * Stool occult blood negative. reticulocyte count: normal * No prior GI workup; recommended f/u GI outpatient for screening baseline colonoscopy * started on Epocrit 10,000 IV T//Wed * Hgb: 6.8; given one unit of PRBC today; f/u CBC in AM 3) Hyperkalemia * monitor 4) Uncontrolled hypertension * Controlled * c/w hydralazine 75mg PO Q 8 hours * Patient is currently on dialysis T//Wed schedule * monitor vital signs 5) Chronic Headache * Neurology (Dr. Currie) on board * Patient had elevated ESR on admission and down trending * Patient started on Prednisone 60mg PO to cover for empiric treatment for temporal arteritis; note on my exam, patient reports headaches improved, no associated eye symptoms, and reports associated dizziness * ESR improved from 65-->27-->23 * Brain MRI (09/15/16): no acute infarction and no intercranial hemorrhage; mild chronic white matter changes * Head MRA (09/15/16): no evidence of significant stenosis, aneurysm, no occlusion * Neck MRA (09/15/16): no evidence of signficiant occlusion or stenosis * Will taper patient off steroid; Prednisone 50mg PO daily X3, Prednisone 40mg PO daily X3, Prednisone 30mg PO Daily X3, Prednisone 20mg PO daily X3 6) Leukocytosis * POD 1 * Patient is on high dose PO steroid; taper off steroid * Vancomycin 500mg IV TThSat (started 09/19/16) * ordered for blood/urine cultures * monitor white count and temperature 7) Prophylactic care * Pepcid 20mg PO daily for gi pxx * Dialysis placement per case management; hepatitis panel negative; pending hep B surface Ab * Liquid diet * Zofran PRN nausea
--- NOTE | 2016-09-19 07:40 | CP.PCM.PN ---
<Yulisa Soler - Last Filed: 09/19/16 08:27> Subjective - Date & Time of Evaluation Date of Evaluation: 09/19/16 Time of Evaluation: 08:28 - Subjective Subjective: PGY1 Medicine Note for Dr. Calloway Patient seen and examined at bedside. Patient had no acute events overnight as per nursing. She was complaining of some right sided headache and neck pain and left arm pain postop. Patient asked for tylenol 1 time and pain was controlled and she was able to sleep overnight. Patient was afebrile and denied chest pain , palpitations, SOB, cough, abdominal pain, nausea, vomiting, bowel/bladder complaints, pain in her legs b/l, blood in stool/urine. Patient wants to advance diet from liquids. Objective - Vital Signs/Intake and Output Vital Signs (last 24 hours): Temp Pulse Resp BP Pulse Ox 98.2 F 80 20 141/75 98 09/18/16 23:45 09/19/16 04:00 09/18/16 23:45 09/18/16 23:45 09/18/16 23:45 Intake and Output: 09/19/16 09/19/16 06:59 18:59 Intake Total 1169 Balance 1169 - Medications Medications: Current Medications Acetaminophen (Tylenol 325 Mg Supp) 325 mg [place] Q4 PRN PRN Reason: Headache Last Admin: 09/16/16 07:02 Dose: 325 mg Calcitriol (Rocaltrol) 0.25 mcg PO DAILY [facility] Last Admin: 09/18/16 10:44 Dose: 0.25 mcg Epoetin Arash (Procrit) 10,000 unit IV TTS [facility] Stop: 09/26/16 10:01 Last Admin: 09/17/16 09:40 Dose: 10,000 unit Famotidine (Pepcid) 20 mg PO DAILY [facility] Last Admin: 09/18/16 09:36 Dose: 20 mg Ferric Sodium Gluconate Complex (Ferrlecit) 62.5 mg IVPB QWK [facility] Stop: 10/01/16 10:01 Hydralazine HCl (Apresoline) 75 mg PO Q8H [facility] Last Admin: 09/19/16 01:18 Dose: 75 mg Hydromorphone HCl (Dilaudid) 0.5 mg IVP Q3 PRN PRN Reason: Pain, severe (8-10) Last Admin: 09/18/16 08:08 Dose: 0.5 mg Vancomycin HCl/Dextrose (Vancocin) 100 mls @ 100 mls/hr IVPB TTS [facility] Metoclopramide HCl (Reglan) 10 mg IVP Q6 PRN PRN Reason: Nausea/Vomiting Last Admin: 09/18/16 08:08 Dose: 10 mg Paricalcitol (Zemplar) 2 mcg IV TTS [facility] Prednisone (Prednisone Tab) 50 mg PO DAILY [facility] PRN Reason: Taper Stop: 10/03/16 15:28 Tramadol HCl (Ultram) 50 mg PO TID [facility] Last Admin: 09/18/16 18:00 Dose: Not Given - Labs Labs: 09/18/16 06:55 09/18/16 06:55 PT 11.2 SECONDS (9.7-12.2) 09/14/16 16:33 INR 1.0 09/14/16 16:33 APTT 29 SECONDS (21-34) 09/14/16 16:33 - Constitutional Appears: Non-toxic, No Acute Distress - Head Exam Head Exam: NORMAL INSPECTION - Eye Exam Eye Exam: Normal appearance. absent: Conjunctival injection, Scleral icterus Pupil Exam: NORMAL ACCOMODATION - ENT Exam ENT Exam: Mucous Membranes Moist - Neck Exam Neck Exam: Normal Inspection - Respiratory Exam Respiratory Exam: Clear to Ausculation Bilateral, NORMAL BREATHING PATTERN. absent: Rales, Rhonchi, Wheezes - Cardiovascular Exam Cardiovascular Exam: Tachycardia, REGULAR RHYTHM, +S1, +S2 - GI/Abdominal Exam GI & Abdominal Exam: Soft, Normal Bowel Sounds. absent: Tenderness - Extremities Exam Extremities Exam: Normal Capillary Refill, Normal Inspection. absent: Calf Tenderness, Pedal Edema, Tenderness Additional comments: L arm dressings of brachiobasilic AVF c/d/i HD catheter in place - Neurological Exam Neurological Exam: Alert, Awake, Oriented x3 - Psychiatric Exam Psychiatric exam: Normal Affect, Normal Mood - Skin Skin Exam: Dry, Intact, Normal Color, Warm Assessment and Plan - Assessment and Plan (Free Text) Plan: Headache ESR 23 from 27 - down trending Prednisone taper started Tramadol 50mg PO TID for pain Dilaudid 0.5mg IVP PRN pain CT brain - negative Neck MRA w/Slightly limited motion degraded study. No evidence of occlusion or significant stenosis Head MRA w/No evidence of occlusion significant stenosis or large aneurysm nor vascular malformation. No evidence to suggest vasculitis in the larger visualized segments. CT brain w/o cont w/findings of No acute intracranial hemorrhage or acute infarct. Mild chronic white matter ischemic changes. Neuro following- Kush- cont current mgmt at this time Acute Renal Failure s/p HD catheter insertion into R chest wall and AVF creation , POD#1 Patient for HD today BUN 55 from 30 Cr 8.6 from 6.7 Hep panel neg RPR neg Renal diet Nephro- Pt for HD TTS w/vancomycin, Procrit, Zemplar, Ferric Sodium Gluconate Surgery recs- L arm precautions, AVF created, POD #2, Leave dressing in place, Dr. Louis to remove it in office in 2 wks, cont HD via permacath Dr. Kwesi white on board- help appreciated Leukocytosis WBC 12.1 On steroids- likely reactive Afebrile over last 24H blood culture prelim neg x 2 FU urine cxr Anemia, likely due to chronic kidney disease Hgb 7.9 s/p transfusion 1U PRBC Patient is tachycardic- will transfuse 1 more unit during HD On procrit as per nephro Ferrlecit 62.5mg IVPB Qweekly FOB neg PTH intact whole molecule high - 563 FT4 1.26 TSH 3.65 Monitor for bleeding HTN BP 116/82 Cont Hydralazine 75mg Q8H [facility] Monitor Nausea Resolved Reglan Monitor GI/DVT ppx Pepcid SCDs Dispo: Pain mgmt for headache Spoke to SW regarding HD placement after hospitalization- in progress DW attending Yulisa Soler PGY1 <Db Ribera - Last Filed: 09/19/16 09:19> Objective - Vital Signs/Intake and Output Vital Signs (last 24 hours): Temp Pulse Resp BP Pulse Ox 98.2 F 82 20 116/82 98 09/19/16 08:27 09/19/16 08:27 09/19/16 08:27 09/19/16 08:27 09/19/16 08:27 Intake and Output: 09/19/16 09/19/16 06:59 18:59 Intake Total 1169 Balance 1169 - Medications Medications: Current Medications Acetaminophen (Tylenol 325 Mg Supp) 325 mg [place] Q4 PRN PRN Reason: Headache Last Admin: 09/16/16 07:02 Dose: 325 mg Calcitriol (Rocaltrol) 0.25 mcg PO DAILY [facility] Last Admin: 09/18/16 10:44 Dose: 0.25 mcg Epoetin Arash (Procrit) 10,000 unit IV TTS [facility] Stop: 09/26/16 10:01 Last Admin: 09/17/16 09:40 Dose: 10,000 unit Famotidine (Pepcid) 20 mg PO DAILY [facility] Last Admin: 09/18/16 09:36 Dose: 20 mg Ferric Sodium Gluconate Complex (Ferrlecit) 62.5 mg IVPB QWK [facility] Stop: 10/01/16 10:01 Hydralazine HCl (Apresoline) 75 mg PO Q8H [facility] Last Admin: 09/19/16 01:18 Dose: 75 mg Hydromorphone HCl (Dilaudid) 0.5 mg IVP Q3 PRN PRN Reason: Pain, severe (8-10) Last Admin: 09/18/16 08:08 Dose: 0.5 mg Vancomycin HCl/Dextrose (Vancocin) 100 mls @ 100 mls/hr IVPB TTS [facility] Metoclopramide HCl (Reglan) 10 mg IVP Q6 PRN PRN Reason: Nausea/Vomiting Last Admin: 09/18/16 08:08 Dose: 10 mg Paricalcitol (Zemplar) 2 mcg IV TTS [facility] Prednisone (Prednisone Tab) 50 mg PO DAILY [facility] PRN Reason: Taper Stop: 10/03/16 15:28 Tramadol HCl (Ultram) 50 mg PO TID [facility] Last Admin: 09/18/16 18:00 Dose: Not Given - Labs Labs: 09/19/16 08:19 09/19/16 08:19 PT 11.2 SECONDS (9.7-12.2) 09/14/16 16:33 INR 1.0 09/14/16 16:33 APTT 29 SECONDS (21-34) 09/14/16 16:33
[2016-09-19 08:31] LABS: BASO % 0.2 % (0.0-2.0); EOS % 0.2 % (0.0-4.0); HEMATOCRIT 24.1 % (34.0-47.0); LYMPH # 1.4 K/uL (1.0-4.3); LYMPH % 11.8 % (20.0-40.0); MEAN CELL VOLUME 85.2 fL (81.0-99.0); MEAN CORPUSCULAR HEMOGLOBIN 27.9 pg (27.0-31.0); MEAN CORPUSCULAR HGB CONC 32.7 g/dL (33.0-37.0); MEAN PLATELET VOLUME 7.6 fL (7.2-11.7); MONO % 8.4 % (0.0-10.0); RED CELL DISTRIBUTION WIDTH 14.9 % (11.5-14.5); WHITE BLOOD COUNT 12.1 K/uL (4.8-10.8)
[2016-09-19 08:45] LABS: POTASSIUM 3.9 mmol/L (3.6-5.2)
[2016-09-19 08:48] LABS: ALB/GLOB RATIO 1.2 (1.0-2.1); BILIRUBIN,TOTAL 0.3 mg/dL (0.2-1.3); CALCIUM 7.9 mg/dl (8.6-10.4); TOTAL PROTEIN 5.6 g/dL (6.3-8.3)
[2016-09-19 08:49] LABS: MAGNESIUM 2.2 mg/dL (1.6-2.3)
--- NOTE | 2016-09-19 09:49 | CP.PCM.PN ---
Subjective - Date & Time of Evaluation Date of Evaluation: 09/19/16 Time of Evaluation: 09:50 - Subjective Subjective: Currently on dialysis Objective - Vital Signs/Intake and Output Vital Signs (last 24 hours): Temp Pulse Resp BP Pulse Ox 97.8 F 86 18 162/85 H 97 09/19/16 08:50 09/19/16 08:50 09/19/16 08:50 09/19/16 09:20 09/19/16 08:50 Intake and Output: 09/19/16 09/19/16 06:59 18:59 Intake Total 1169 Balance 1169 - Medications Medications: Current Medications Acetaminophen (Tylenol 325 Mg Supp) 325 mg [place] Q4 PRN PRN Reason: Headache Last Admin: 09/16/16 07:02 Dose: 325 mg Calcitriol (Rocaltrol) 0.25 mcg PO DAILY [facility] Last Admin: 09/18/16 10:44 Dose: 0.25 mcg Epoetin Arash (Procrit) 10,000 unit IV TTS [facility] Stop: 09/26/16 10:01 Last Admin: 09/17/16 09:40 Dose: 10,000 unit Famotidine (Pepcid) 20 mg PO DAILY [facility] Last Admin: 09/18/16 09:36 Dose: 20 mg Ferric Sodium Gluconate Complex (Ferrlecit) 62.5 mg IVPB QWK [facility] Stop: 10/01/16 10:01 Hydralazine HCl (Apresoline) 75 mg PO Q8H [facility] Last Admin: 09/19/16 01:18 Dose: 75 mg Hydromorphone HCl (Dilaudid) 0.5 mg IVP Q3 PRN PRN Reason: Pain, severe (8-10) Last Admin: 09/18/16 08:08 Dose: 0.5 mg Vancomycin HCl/Dextrose (Vancocin) 100 mls @ 100 mls/hr IVPB TTS [facility] Metoclopramide HCl (Reglan) 10 mg IVP Q6 PRN PRN Reason: Nausea/Vomiting Last Admin: 09/18/16 08:08 Dose: 10 mg Paricalcitol (Zemplar) 2 mcg IV TTS [facility] Prednisone (Prednisone Tab) 50 mg PO DAILY [facility] PRN Reason: Taper Stop: 10/03/16 15:28 Tramadol HCl (Ultram) 50 mg PO TID [facility] Last Admin: 09/18/16 18:00 Dose: Not Given - Labs Labs: 09/19/16 08:19 09/19/16 08:19 PT 11.2 SECONDS (9.7-12.2) 09/14/16 16:33 INR 1.0 09/14/16 16:33 APTT 29 SECONDS (21-34) 09/14/16 16:33 - Respiratory Exam Additional comments: lungs clear - Cardiovascular Exam Cardiovascular Exam: REGULAR RHYTHM - Extremities Exam Additional comments: + bruit over Lt arm AVF. Hand is warm No pedal edema Assessment and Plan - Assessment and Plan (Free Text) Assessment: ESRD on HD S?P Lt arm AVF creation Anemia S/P blood transfusion Plan: Hb is improved. Continue with Epogen 10,000 u HD per schedule
[2016-09-19] MEDS: Paricalcitol 2 mcg/ml Inj IV SCH (11:45)
[2016-09-19] MEDS: Epoetin Alfa 10,000 unit/ml Dialysis IV SCH (11:47)
[2016-09-19] MEDS: Vancomycin 500mg/D5W 100 ml 100 ML IVPB SCH (12:36)
[2016-09-20 06:30] LABS: BASO % 0.1 % (0.0-2.0); HEMATOCRIT 33.7 % (34.0-47.0); LYMPH # 0.9 K/uL (1.0-4.3); LYMPH % 6.8 % (20.0-40.0); MEAN CELL VOLUME 82.9 fL (81.0-99.0); MEAN CORPUSCULAR HEMOGLOBIN 26.7 pg (27.0-31.0); MEAN CORPUSCULAR HGB CONC 32.2 g/dL (33.0-37.0); MEAN PLATELET VOLUME 7.9 fL (7.2-11.7); MONO # 0.8 K/uL (0.0-0.8); MONO % 5.5 % (0.0-10.0); NRBC % 0.1 % (0.0-2.0); PLATELET COUNT 180 K/uL (130-400); RED CELL DISTRIBUTION WIDTH 17.3 % (11.5-14.5)
[2016-09-20 07:46] LABS: POTASSIUM 4.2 mmol/L (3.6-5.2)
[2016-09-20 07:48] LABS: ALB/GLOB RATIO 1.3 (1.0-2.1); BILIRUBIN,TOTAL 0.5 mg/dL (0.2-1.3); TOTAL PROTEIN 6.3 g/dL (6.3-8.3)
[2016-09-20 07:49] LABS: MAGNESIUM 2.2 mg/dL (1.6-2.3); PHOSPHOROUS 4.7 mg/dL (2.5-4.5)
[2016-09-20 08:16] LABS: NEUTROPHIL 82 % (50-75); NUCLEATED RED BLOOD CELL 1 % (0-0); TOTAL CELLS COUNTED 100
--- NOTE | 2016-09-20 09:31 | CP.PCM.PN ---
<Yulisa Soler - Last Filed: 09/20/16 11:45> Subjective - Date & Time of Evaluation Date of Evaluation: 09/20/16 Time of Evaluation: 09:15 - Subjective Subjective: PGY1 Medicine Note for Dr. Calloway Patient seen and examined at bedside. Patient had no acute complaints and was in no acute distress overnight. She reported her headache and Left sided neck pain had improved significantly and she no longer complained of pain in her right arm. Patient denied fever, chills, headaches, dizziness, chest pain, palpitations, shortness of breath, cough, abdominal pain, nausea, vomiting, bowel/bladder complaints, pain in her legs bilaterally. Patient is tolerating diet. Patient is POD # 3 AV fistula in left arm. Objective - Vital Signs/Intake and Output Vital Signs (last 24 hours): Temp Pulse Resp BP Pulse Ox 97.9 F 77 20 159/78 H 96 09/20/16 08:19 09/20/16 08:19 09/20/16 08:19 09/20/16 08:19 09/20/16 08:19 Intake and Output: 09/20/16 09/20/16 06:59 18:59 Intake Total 460 Balance 460 - Medications Medications: Current Medications Acetaminophen (Tylenol 325 Mg Supp) 325 mg [place] Q4 PRN PRN Reason: Headache Last Admin: 09/16/16 07:02 Dose: 325 mg Calcitriol (Rocaltrol) 0.25 mcg PO DAILY [facility] Last Admin: 09/19/16 12:37 Dose: 0.25 mcg Epoetin Arash (Procrit) 10,000 unit IV TTS [facility] Stop: 09/26/16 10:01 Last Admin: 09/19/16 11:47 Dose: 10,000 unit Famotidine (Pepcid) 20 mg PO DAILY [facility] Last Admin: 09/19/16 12:38 Dose: 20 mg Ferric Sodium Gluconate Complex (Ferrlecit) 62.5 mg IVPB QWK [facility] Stop: 10/01/16 10:01 Heparin Sodium (Porcine) (Heparin) 5,000 units SC Q12 [facility] Last Admin: 09/19/16 22:21 Dose: Not Given Hydralazine HCl (Apresoline) 75 mg PO Q8H [facility] Last Admin: 09/20/16 08:08 Dose: 75 mg Hydromorphone HCl (Dilaudid) 0.5 mg IVP Q3 PRN PRN Reason: Pain, severe (8-10) Last Admin: 09/18/16 08:08 Dose: 0.5 mg Vancomycin HCl/Dextrose (Vancocin) 100 mls @ 100 mls/hr IVPB TTS [facility] Last Admin: 09/19/16 12:36 Dose: 100 mls/hr Metoclopramide HCl (Reglan) 10 mg IVP Q6 PRN PRN Reason: Nausea/Vomiting Last Admin: 09/18/16 08:08 Dose: 10 mg Paricalcitol (Zemplar) 2 mcg IV TTS [facility] Last Admin: 09/19/16 11:45 Dose: 2 mcg Prednisone (Prednisone Tab) 50 mg PO DAILY [facility] PRN Reason: Taper Stop: 10/03/16 15:28 Last Admin: 09/19/16 12:37 Dose: 50 mg Tramadol HCl (Ultram) 50 mg PO TID [facility] Last Admin: 09/19/16 17:43 Dose: Not Given - Labs Labs: 09/20/16 06:14 09/20/16 06:14 PT 11.2 SECONDS (9.7-12.2) 09/14/16 16:33 INR 1.0 09/14/16 16:33 APTT 29 SECONDS (21-34) 09/14/16 16:33 - Constitutional Appears: Non-toxic, No Acute Distress - Head Exam Head Exam: NORMAL INSPECTION - Eye Exam Eye Exam: Normal appearance. absent: Conjunctival injection, Scleral icterus - ENT Exam ENT Exam: Mucous Membranes Moist - Neck Exam Neck Exam: Normal Inspection. absent: Tenderness - Respiratory Exam Respiratory Exam: Clear to Ausculation Bilateral, NORMAL BREATHING PATTERN. absent: Accessory Muscle Use, Rales, Rhonchi, Wheezes, Respiratory Distress - Cardiovascular Exam Cardiovascular Exam: REGULAR RHYTHM, RRR, +S1, +S2. absent: Murmur - GI/Abdominal Exam GI & Abdominal Exam: Soft, Normal Bowel Sounds. absent: Firm, Guarding, Rigid, Tenderness - Extremities Exam Extremities Exam: Normal Capillary Refill, Normal Inspection. absent: Pedal Edema Additional comments: L arm dressings of brachiobasilic AVF c/d/i HD catheter in place - Neurological Exam Neurological Exam: Alert, Awake, Oriented x3 - Psychiatric Exam Psychiatric exam: Normal Affect, Normal Mood - Skin Skin Exam: Dry, Intact, Normal Color, Warm Assessment and Plan - Assessment and Plan (Free Text) Plan: 1) Metabolic Acidosis, Chronic Kidney Disease * Nephrology (Dr. Orosco) on board * Vascular surgeon (Dr. Louis) on board * Dialysis scheduled T//Sat * Went for AVF creation POD 3 left upper extremity; palpable 2) Anemia * Chronic; anemia of chronic disease * Iron and % iron levels are normal; ferritin normal, hgb low, tibc low * Stool occult blood negative. reticulocyte count: normal * No prior GI workup; recommended f/u GI outpatient for screening baseline colonoscopy * started on Epocrit 10,000 IV T//Sat * Ferrlecit 62.5mg IVP Qwkly * Hgb: 10.8 this AM s/p 2 U PRBC transfusion- patient no longer tachycardic 3) Hyperkalemia * monitor 4) Uncontrolled hypertension * Controlled * c/w hydralazine 75mg PO Q 8 hours * Patient is currently on dialysis T//Wed schedule * monitor vital signs 5) Chronic Headache * Neurology (Dr. Currie) on board * resolved this AM. * Patient had elevated ESR on admission and down trending * Patient started on Prednisone 60mg PO to cover for empiric treatment for temporal arteritis; note on my exam, patient reports headaches improved, no associated eye symptoms, and reports associated dizziness * ESR improved from 65-->27-->23 * Brain MRI (09/15/16): no acute infarction and no intercranial hemorrhage; mild chronic white matter changes * Head MRA (09/15/16): no evidence of significant stenosis, aneurysm, no occlusion * Neck MRA (09/15/16): no evidence of signficiant occlusion or stenosis * Will taper patient off steroid; Prednisone 50mg PO daily X3, Prednisone 40mg PO daily X3, Prednisone 30mg PO Daily X3, Prednisone 20mg PO daily X3 6) Leukocytosis * POD 3 * WBC trend up to 14 from 12.1 * afebrile * f/u repeat cultures and procalcitonin * Patient is on high dose PO steroid; tapering steroid: Prednisone 50mg PO daily X3, Prednisone 40mg PO daily X3, Prednisone 30mg PO Daily X3, Prednisone 20mg PO daily X3 * Vancomycin 500mg IV TThSat (started 09/19/16) * Blood culture (09/17/16): no prelim X2 * monitor white count and temperature 7) Prophylactic care * Pepcid 20mg PO daily for gi pxx * Heparin 5000 units subq 12hours for DVT ppx * Dialysis placement per case management; hepatitis panel negative; pending hep B surface Ab * Regular diet * Reglan PRN Q6H nausea Plan discussed with Dr. Elli Soler PGY1 <Erna Calloway V - Last Filed: 09/20/16 14:52> Objective - Vital Signs/Intake and Output Vital Signs (last 24 hours): Temp Pulse Resp BP Pulse Ox 97.9 F 77 20 159/78 H 96 09/20/16 08:19 09/20/16 08:19 09/20/16 08:19 09/20/16 08:19 09/20/16 08:19 Intake and Output: 09/20/16 09/20/16 06:59 18:59 Intake Total 460 Balance 460 - Medications Medications: Current Medications Acetaminophen (Tylenol 325 Mg Supp) 325 mg [place] Q4 PRN PRN Reason: Headache Last Admin: 09/16/16 07:02 Dose: 325 mg Calcitriol (Rocaltrol) 0.25 mcg PO DAILY [facility] Last Admin: 09/20/16 10:13 Dose: 0.25 mcg Epoetin Arash (Procrit) 10,000 unit IV TTS [facility] Stop: 09/26/16 10:01 Last Admin: 09/19/16 11:47 Dose: 10,000 unit Famotidine (Pepcid) 20 mg PO DAILY [facility] Last Admin: 09/20/16 10:10 Dose: 20 mg Ferric Sodium Gluconate Complex (Ferrlecit) 62.5 mg IVPB QWK [facility] Stop: 10/01/16 10:01 Heparin Sodium (Porcine) (Heparin) 5,000 units SC Q12 [facility] Last Admin: 09/20/16 10:10 Dose: 5,000 units Hydralazine HCl (Apresoline) 75 mg PO Q8H [facility] Last Admin: 09/20/16 08:08 Dose: 75 mg Hydromorphone HCl (Dilaudid) 0.5 mg IVP Q3 PRN PRN Reason: Pain, severe (8-10) Last Admin: 03/31/17 08:08 Dose: 0.5 mg Vancomycin HCl/Dextrose (Vancocin) 100 mls @ 100 mls/hr IVPB TTS [facility] Last Admin: 09/19/16 12:36 Dose: 100 mls/hr Metoclopramide HCl (Reglan) 10 mg IVP Q6 PRN PRN Reason: Nausea/Vomiting Last Admin: 09/18/16 08:08 Dose: 10 mg Paricalcitol (Zemplar) 2 mcg IV TTS [facility] Last Admin: 09/19/16 11:45 Dose: 2 mcg Prednisone (Prednisone Tab) 50 mg PO DAILY [facility] PRN Reason: Taper Stop: 10/03/16 15:28 Last Admin: 09/20/16 10:09 Dose: 50 mg Tramadol HCl (Ultram) 50 mg PO TID [facility] Last Admin: 09/20/16 14:00 Dose: Not Given - Labs Labs: 09/20/16 06:14 09/20/16 06:14 PT 11.2 SECONDS (9.7-12.2) 09/14/16 16:33 INR 1.0 09/14/16 16:33 APTT 29 SECONDS (21-34) 09/14/16 16:33 Attending/Attestation - Attestation I have personally seen and examined this patient.: Yes I have fully participated in the care of the patient.: Yes I have reviewed all pertinent clinical information, including history, physical exam and plan: Yes Notes (Text): Patient seen, examined, and case discussed with day-time resident. Patient seen at bedside. Patient reports headache is resolved, tolerating diet, denies nausea, denies vomitting, and is ambulatory. Patient ordered for blood cultures X2, Urine culture, and procalcitonin given leukocytosis; prior blood cultures are negative and afebrile. Patient is awaiting dialysis placement. Patient undergoing PO steroid taper for headache. Assessment/Plan 1) Metabolic Acidosis, Chronic Kidney Disease * Nephrology (Dr. Orosco) on board * Vascular surgeon (Dr. Louis) on board * Dialysis scheduled T/Th/Wed * Went for AVF creation POD 3 left upper extremity; palpable 2) Anemia * Chronic; anemia of chronic disease * Iron and % iron levels are normal; ferritin normal, hgb low, tibc low * Stool occult blood negative. reticulocyte count: normal * No prior GI workup; recommended f/u GI outpatient for screening baseline colonoscopy * started on Epocrit 10,000 IV T//Sat * Hgb: 10.8 today * Patient has had PRBC transfusion this admission 3) Hyperkalemia * monitor * normalized 4) Uncontrolled hypertension * Controlled * Increased to hydralazine 100 mg PO Q 8 hours * Patient is currently on dialysis T//Wed schedule * monitor vital signs 5) Chronic Headache * Neurology (Dr. Currie) on board * Patient had elevated ESR on admission and down trending * Patient started on Prednisone 60mg PO to cover for empiric treatment for temporal arteritis; note on my exam, patient reports headaches improved, no associated eye symptoms, and reports associated dizziness * ESR improved from 65-->27-->23 * Brain MRI (09/15/16): no acute infarction and no intercranial hemorrhage; mild chronic white matter changes * Head MRA (09/15/16): no evidence of significant stenosis, aneurysm, no occlusion * Neck MRA (09/15/16): no evidence of signficiant occlusion or stenosis * Will taper patient off steroid; Prednisone 50mg PO daily X3, Prednisone 40mg PO daily X3, Prednisone 30mg PO Daily X3, Prednisone 20mg PO daily X3 6) Leukocytosis * POD 3 * Patient is on high dose PO steroid; tapering steroid: Prednisone 50mg PO daily X3, Prednisone 40mg PO daily X3, Prednisone 30mg PO Daily X3, Prednisone 20mg PO daily X3 * Vancomycin 500mg IV TThSat (started 09/19/16) * Blood culture (09/17/16): no growth X3 days X2 * monitor white count and temperature * Ordered for blood cultures, urine culture, procalcitonin and ordered for esr/ crp tomorrow * persistent leukocytosis 7) Prophylactic care * Pepcid 20mg PO daily for gi pxx * Heparin 5000 units subq 12hours for DVT ppx * Dialysis placement per case management; hepatitis panel negative; pending hep B surface Ab * Regular diet * Zofran PRN nausea
--- NOTE | 2016-09-20 12:38 | CP.PCM.PN ---
Subjective - Date & Time of Evaluation Date of Evaluation: 09/20/16 Time of Evaluation: 12:00 - Subjective Subjective: Feels better today. No c/o headache Objective - Vital Signs/Intake and Output Vital Signs (last 24 hours): Temp Pulse Resp BP Pulse Ox 97.9 F 77 20 159/78 H 96 09/20/16 08:19 09/20/16 08:19 09/20/16 08:19 09/20/16 08:19 09/20/16 08:19 Intake and Output: 09/20/16 09/20/16 06:59 18:59 Intake Total 460 Balance 460 - Medications Medications: Current Medications Acetaminophen (Tylenol 325 Mg Supp) 325 mg [place] Q4 PRN PRN Reason: Headache Last Admin: 09/16/16 07:02 Dose: 325 mg Calcitriol (Rocaltrol) 0.25 mcg PO DAILY [facility] Last Admin: 09/20/16 10:13 Dose: 0.25 mcg Epoetin Arash (Procrit) 10,000 unit IV TTS [facility] Stop: 09/26/16 10:01 Last Admin: 09/19/16 11:47 Dose: 10,000 unit Famotidine (Pepcid) 20 mg PO DAILY [facility] Last Admin: 09/20/16 10:10 Dose: 20 mg Ferric Sodium Gluconate Complex (Ferrlecit) 62.5 mg IVPB QWK [facility] Stop: 10/01/16 10:01 Heparin Sodium (Porcine) (Heparin) 5,000 units SC Q12 [facility] Last Admin: 09/20/16 10:10 Dose: 5,000 units Hydralazine HCl (Apresoline) 75 mg PO Q8H [facility] Last Admin: 09/20/16 08:08 Dose: 75 mg Hydromorphone HCl (Dilaudid) 0.5 mg IVP Q3 PRN PRN Reason: Pain, severe (8-10) Last Admin: 09/18/16 08:08 Dose: 0.5 mg Vancomycin HCl/Dextrose (Vancocin) 100 mls @ 100 mls/hr IVPB TTS [facility] Last Admin: 09/19/16 12:36 Dose: 100 mls/hr Metoclopramide HCl (Reglan) 10 mg IVP Q6 PRN PRN Reason: Nausea/Vomiting Last Admin: 09/18/16 08:08 Dose: 10 mg Paricalcitol (Zemplar) 2 mcg IV TTS [facility] Last Admin: 09/19/16 11:45 Dose: 2 mcg Prednisone (Prednisone Tab) 50 mg PO DAILY [facility] PRN Reason: Taper Stop: 10/03/16 15:28 Last Admin: 09/20/16 10:09 Dose: 50 mg Tramadol HCl (Ultram) 50 mg PO TID [facility] Last Admin: 09/20/16 10:14 Dose: Not Given - Labs Labs: 09/20/16 06:14 09/20/16 06:14 PT 11.2 SECONDS (9.7-12.2) 09/14/16 16:33 INR 1.0 09/14/16 16:33 APTT 29 SECONDS (21-34) 09/14/16 16:33 - Respiratory Exam Additional comments: Lungs clear - Cardiovascular Exam Cardiovascular Exam: REGULAR RHYTHM - Extremities Exam Additional comments: No edema. + bruit over AVF. Lt hand is warm Assessment and Plan - Assessment and Plan (Free Text) Assessment: ESRD on HD HTN Anemia. Hb is improving Plan: Stable on dialysis. Continue HD per schedule
[2016-09-20 13:02] LABS: RBC URINE 3 /hpf (0-3); URINE BACTERIA OCC (<OCC); URINE BILIRUBIN NEGATIVE (NEGATIVE); URINE BLOOD NEGATIVE (NEGATIVE); URINE COLOR Yellow (YELLOW); URINE GLUCOSE (UA) 3+ mg/dL (Normal); URINE KETONE NEGATIVE (NEGATIVE); URINE LEUKOCYTE ESTERASE 2+ Leu/uL (Negative); URINE PROTEIN 2+ mg/dL (NEGATIVE); URINE UROBILINOGEN NORMAL mg/dL (0.2-1.0); WBC URINE 17 /hpf (0-5)
[2016-09-21 07:16] LABS: BASO % 0.1 % (0.0-2.0); EOS % 0.1 % (0.0-4.0); HEMATOCRIT 30.2 % (34.0-47.0); LYMPH # 1.3 K/uL (1.0-4.3); LYMPH % 9.2 % (20.0-40.0); MEAN CELL VOLUME 83.3 fL (81.0-99.0); MEAN CORPUSCULAR HEMOGLOBIN 26.7 pg (27.0-31.0); MEAN CORPUSCULAR HGB CONC 32.1 g/dL (33.0-37.0); MEAN PLATELET VOLUME 7.9 fL (7.2-11.7); MONO # 0.9 K/uL (0.0-0.8); MONO % 6.8 % (0.0-10.0); NRBC % 0.1 % (0.0-2.0); PLATELET COUNT 160 K/uL (130-400); RED CELL DISTRIBUTION WIDTH 17.6 % (11.5-14.5); WHITE BLOOD COUNT 13.6 K/uL (4.8-10.8)
[2016-09-21 08:02] LABS: POTASSIUM 4.1 mmol/L (3.6-5.2)
[2016-09-21 08:04] LABS: ALB/GLOB RATIO 1.3 (1.0-2.1); BILIRUBIN,TOTAL 0.3 mg/dL (0.2-1.3); PHOSPHOROUS 6.9 mg/dL (2.5-4.5); TOTAL PROTEIN 5.5 g/dL (6.3-8.3)
[2016-09-21 08:05] LABS: CALCIUM 7.7 mg/dl (8.6-10.4); MAGNESIUM 2.2 mg/dL (1.6-2.3)
[2016-09-21 08:37] LABS: METAMYELOCYTE 1 % (0-0); MYELOCYTE 2 % (0-0); NEUTROPHIL 85 % (50-75); TOTAL CELLS COUNTED 100
[2016-09-21 11:18] LABS: ERYTHROCYTE SEDIMENTATION RATE 5 mm/hr (0-20)
--- NOTE | 2016-09-21 12:07 | CP.PCM.PN ---
Subjective - Date & Time of Evaluation Date of Evaluation: 09/28/16 Time of Evaluation: 10:30 - Subjective Subjective: Feels better Objective - Vital Signs/Intake and Output Vital Signs (last 24 hours): Temp Pulse Resp BP Pulse Ox 98 F 84 17 143/80 97 09/21/16 07:25 09/21/16 10:46 09/21/16 07:25 09/21/16 07:25 09/21/16 07:25 - Medications Medications: Current Medications Acetaminophen (Tylenol 325 Mg Supp) 325 mg [place] Q4 PRN PRN Reason: Headache Last Admin: 09/16/16 07:02 Dose: 325 mg Calcium Acetate (Phoslo) 1,334 mg PO CCTID [facility] Epoetin Arash (Procrit) 10,000 unit IV TTS [facility] Stop: 09/26/16 10:01 Last Admin: 09/19/16 11:47 Dose: 10,000 unit Famotidine (Pepcid) 20 mg PO DAILY [facility] Last Admin: 09/21/16 09:23 Dose: 20 mg Ferric Sodium Gluconate Complex (Ferrlecit) 62.5 mg IVPB QWK [facility] Stop: 10/01/16 10:01 Heparin Sodium (Porcine) (Heparin) 5,000 units SC Q12 [facility] Last Admin: 09/21/16 09:23 Dose: 5,000 units Hydralazine HCl (Apresoline) 100 mg PO Q8H [facility] Last Admin: 09/21/16 06:34 Dose: 100 mg Vancomycin HCl/Dextrose (Vancocin) 100 mls @ 100 mls/hr IVPB TTS [facility] Last Admin: 09/19/16 12:36 Dose: 100 mls/hr Metoclopramide HCl (Reglan) 10 mg IVP Q6 PRN PRN Reason: Nausea/Vomiting Last Admin: 09/18/16 08:08 Dose: 10 mg Paricalcitol (Zemplar) 2 mcg IV TTS [facility] Last Admin: 09/19/16 11:45 Dose: 2 mcg Prednisone (Prednisone Tab) 40 mg PO DAILY [facility] PRN Reason: Taper Stop: 10/03/16 15:28 Last Admin: 09/21/16 09:26 Dose: 50 mg Tramadol HCl (Ultram) 50 mg PO TID [facility] Last Admin: 09/21/16 09:23 Dose: Not Given - Labs Labs: 09/21/16 06:46 09/21/16 06:46 PT 11.2 SECONDS (9.7-12.2) 09/14/16 16:33 INR 1.0 09/14/16 16:33 APTT 29 SECONDS (21-34) 09/14/16 16:33 - Respiratory Exam Respiratory Exam: NORMAL BREATHING PATTERN - Cardiovascular Exam Cardiovascular Exam: REGULAR RHYTHM - Extremities Exam Additional comments: No edema. Lt arm dressing clean & dry Assessment and Plan - Assessment and Plan (Free Text) Assessment: ESRD on HD SHPT S/P Lt arm AVF creation Anemia HTN Plan: Continue HD every TTS Hb is stable Add phoslo
--- NOTE | 2016-09-21 12:58 | CP.PCM.PN ---
<Edilma Hyde - Last Filed: 09/21/16 15:30> Subjective - Date & Time of Evaluation Date of Evaluation: 09/21/16 Time of Evaluation: 07:10 - Subjective Subjective: Internal medicine progress note for Hospitalist service- Edilma Hyde, PGY-1 Pt S & E at bedside. Pt reports minimal headache, slight/well controlled pain of LUE, some chills overnight, itchiness of Right chest wall around HD catheter site. Denies N/V/F , SOB, CP, abdominal pain, is moving bowels, ambulating, sleeping well, tolerating diet. Objective - Vital Signs/Intake and Output Vital Signs (last 24 hours): Temp Pulse Resp BP Pulse Ox 98 F 84 17 143/80 97 09/21/16 07:25 09/21/16 10:46 09/21/16 07:25 09/21/16 07:25 09/21/16 07:25 - Medications Medications: Current Medications Acetaminophen (Tylenol 325 Mg Supp) 325 mg [place] Q4 PRN PRN Reason: Headache Last Admin: 09/16/16 07:02 Dose: 325 mg Calcium Acetate (Phoslo) 1,334 mg PO CCTID [facility] Epoetin Arash (Procrit) 10,000 unit IV TTS [facility] Stop: 09/26/16 10:01 Last Admin: 09/19/16 11:47 Dose: 10,000 unit Famotidine (Pepcid) 20 mg PO DAILY [facility] Last Admin: 09/21/16 09:23 Dose: 20 mg Ferric Sodium Gluconate Complex (Ferrlecit) 62.5 mg IVPB QWK [facility] Stop: 10/01/16 10:01 Heparin Sodium (Porcine) (Heparin) 5,000 units SC Q12 [facility] Last Admin: 09/21/16 09:23 Dose: 5,000 units Hydralazine HCl (Apresoline) 100 mg PO Q8H [facility] Last Admin: 09/21/16 06:34 Dose: 100 mg Vancomycin HCl/Dextrose (Vancocin) 100 mls @ 100 mls/hr IVPB TTS [facility] Last Admin: 09/19/16 12:36 Dose: 100 mls/hr Metoclopramide HCl (Reglan) 10 mg IVP Q6 PRN PRN Reason: Nausea/Vomiting Last Admin: 09/18/16 08:08 Dose: 10 mg Paricalcitol (Zemplar) 2 mcg IV TTS [facility] Last Admin: 09/19/16 11:45 Dose: 2 mcg Prednisone (Prednisone Tab) 40 mg PO DAILY [facility] PRN Reason: Taper Stop: 10/03/16 15:28 Last Admin: 09/21/16 09:26 Dose: 50 mg Tramadol HCl (Ultram) 50 mg PO TID [facility] Last Admin: 09/21/16 09:23 Dose: Not Given - Labs Labs: 09/21/16 06:46 09/21/16 06:46 PT 11.2 SECONDS (9.7-12.2) 09/14/16 16:33 INR 1.0 09/14/16 16:33 APTT 29 SECONDS (21-34) 09/14/16 16:33 - Constitutional Appears: Non-toxic, No Acute Distress - Head Exam Head Exam: ATRAUMATIC, NORMAL INSPECTION, NORMOCEPHALIC - Eye Exam Eye Exam: EOMI, Normal appearance, PERRL Pupil Exam: NORMAL ACCOMODATION, PERRL - ENT Exam ENT Exam: Mucous Membranes Moist, Normal Exam - Neck Exam Neck Exam: Full ROM, Normal Inspection - Respiratory Exam Respiratory Exam: Clear to Ausculation Bilateral, NORMAL BREATHING PATTERN. absent: Chest Wall Tenderness, Rhonchi, Wheezes, Respiratory Distress - Cardiovascular Exam Cardiovascular Exam: REGULAR RHYTHM, +S1, +S2 - GI/Abdominal Exam GI & Abdominal Exam: Soft, Normal Bowel Sounds. absent: Distended, Firm, Guarding, Rigid, Tenderness - Extremities Exam Additional comments: LUE with dressing in place- C/D/I, slightly tender to palpation over the proximal aspect - Back Exam Back Exam: Full ROM, NORMAL INSPECTION - Neurological Exam Neurological Exam: Alert, Awake, CN II-XII Intact, Oriented x3 - Psychiatric Exam Psychiatric exam: Normal Affect, Normal Mood - Skin Skin Exam: Dry, Normal Color, Warm Additional comments: Right chest wall with HD catheter in place- no drainage, erythema, non tender to palpation Assessment and Plan - Assessment and Plan (Free Text) Assessment: 1) Metabolic Acidosis, Chronic Kidney Disease POD#4 s/p LUE AVF creation * Nephrology (Dr. Orosco) on board * Vascular surgeon (Dr. Louis) on board * Dialysis scheduled T//Wed * hepatitis panel neg 2) Anemia * Chronic; anemia of chronic disease * Iron and % iron levels are normal; ferritin normal, hgb low, tibc low * Stool occult blood negative. reticulocyte count: normal * No prior GI workup; recommended f/u GI outpatient for screening baseline colonoscopy * started on Epocrit 10,000 IV T//Wed * Ferrlecit 62.5mg IVP Qwkly * Hgb: 9.47 from 10, * No obvious signs of bleeding * 2 U PRBC given Wednesday 3) Hyperkalemia- resolved * K 4.1 * Monitor 4) Uncontrolled hypertension * BP 143/80 * Controlled * Cont hydralazine 75mg PO Q 8 hours * Patient is currently on dialysis T//Wed schedule * monitor vital signs 5) Chronic Headache * Neurology (Dr. Currie) on board * Reglan PRN Q6H nausea * Patient had elevated ESR on admission and down trending * Patient started on Prednisone 60mg PO to cover for empiric treatment for temporal arteritis- started on taper Q3Days * Prednisone 40mg PO daily X3, Prednisone 30mg PO Daily X3, Prednisone 20mg PO daily X3 * ESR improved from 65-->27-->23 * Brain MRI (09/15/16): no acute infarction and no intercranial hemorrhage; mild chronic white matter changes * Head MRA (09/15/16): no evidence of significant stenosis, aneurysm, no occlusion * Neck MRA (09/15/16): no evidence of signficiant occlusion or stenosis 6) Leukocytosis * POD 4 * WBC trending down to 13.6 from 14 * afebrile * Repeat cultures neg x 24H * Procalc 0.7- low * Pt on steroid taper: Prednisone 50mg PO daily X3, Prednisone 40mg PO daily X3 , Prednisone 30mg PO Daily X3, Prednisone 20mg PO daily X3 * Vancomycin 500mg IV TThSat (started 09/19/16) * Blood culture (09/17/16): no prelim X3 * monitor 7) Prophylactic care * Pepcid 20mg PO daily for gi pxx * Heparin 5000 units subq 12hours for DVT ppx * Dialysis placement per case management Dispo: Cont with current mgmt Renal diet Discharge pending finding HD placement DW attending <Kofi Cuellar - Last Filed: 09/21/16 17:42> Objective - Vital Signs/Intake and Output Vital Signs (last 24 hours): Temp Pulse Resp BP Pulse Ox 97.7 F 86 20 160/88 H 96 09/21/16 16:18 09/21/16 16:18 09/21/16 16:18 09/21/16 16:18 09/21/16 16:18 - Medications Medications: Current Medications Acetaminophen (Tylenol 325 Mg Supp) 325 mg [place] Q4 PRN PRN Reason: Headache Last Admin: 09/16/16 07:02 Dose: 325 mg Calcium Acetate (Phoslo) 1,334 mg PO CCTID [facility] Last Admin: 09/21/16 17:32 Dose: 1,334 mg Epoetin Arash (Procrit) 10,000 unit IV TTS [facility] Stop: 09/26/16 10:01 Last Admin: 09/19/16 11:47 Dose: 10,000 unit Famotidine (Pepcid) 20 mg PO DAILY [facility] Last Admin: 09/21/16 09:23 Dose: 20 mg Ferric Sodium Gluconate Complex (Ferrlecit) 62.5 mg IVPB QWK [facility] Stop: 10/01/16 10:01 Heparin Sodium (Porcine) (Heparin) 5,000 units SC Q12 [facility] Last Admin: 09/21/16 09:23 Dose: 5,000 units Hydralazine HCl (Apresoline) 100 mg PO Q8H [facility] Last Admin: 09/21/16 14:35 Dose: 100 mg Vancomycin HCl/Dextrose (Vancocin) 100 mls @ 100 mls/hr IVPB TTS [facility] Last Admin: 09/19/16 12:36 Dose: 100 mls/hr Metoclopramide HCl (Reglan) 10 mg IVP Q6 PRN PRN Reason: Nausea/Vomiting Last Admin: 09/18/16 08:08 Dose: 10 mg Paricalcitol (Zemplar) 2 mcg IV TTS [facility] Last Admin: 09/19/16 11:45 Dose: 2 mcg Prednisone (Prednisone Tab) 40 mg PO DAILY [facility] PRN Reason: Taper Stop: 10/03/16 15:28 Last Admin: 09/21/16 09:26 Dose: 50 mg Tramadol HCl (Ultram) 50 mg PO TID [facility] Last Admin: 09/21/16 17:32 Dose: Not Given - Labs Labs: 09/21/16 06:46 09/21/16 06:46 PT 11.2 SECONDS (9.7-12.2) 09/14/16 16:33 INR 1.0 09/14/16 16:33 APTT 29 SECONDS (21-34) 09/14/16 16:33 Attending/Attestation - Attestation I have personally seen and examined this patient.: Yes I have fully participated in the care of the patient.: Yes I have reviewed all pertinent clinical information, including history, physical exam and plan: Yes Notes (Text): Medical Attending: Patient was seen and examined by me. Agree with the above note by the resident. The patient was with family members when we saw her. She was not in any acute distress, she was able to walk in her room without assistance. She currently is getting HD via a dialysis catheter and has just had creation of an AVF on 09/17. At this time we are waiting on dialysis center placement. thank you Kofi Cuellar
--- NOTE | 2016-09-22 09:34 | CP.PCM.PN ---
<Edilma Hyde - Last Filed: 09/22/16 12:57> Subjective - Date & Time of Evaluation Date of Evaluation: 09/22/16 Time of Evaluation: 07:00 - Subjective Subjective: Internal medicine progress note for Hospitalist service- Edilma Hyde, PGY-1 Pt S & E at bedside. Pt reports minimal headache, well controlle LUE pain. Denies N/V/F/C, SOB, CP, itchiness over right chest wall, is tolerating diet, having BMs, urinating ok, ambulating. Objective - Vital Signs/Intake and Output Vital Signs (last 24 hours): Temp Pulse Resp BP Pulse Ox 98.1 F 79 17 141/84 98 09/22/16 07:15 09/22/16 08:00 09/22/16 07:15 09/22/16 07:15 09/22/16 07:15 Intake and Output: 09/22/16 09/22/16 06:59 18:59 Intake Total 10 Balance 10 - Medications Medications: Current Medications Acetaminophen (Tylenol 325 Mg Supp) 325 mg [place] Q4 PRN PRN Reason: Headache Last Admin: 09/16/16 07:02 Dose: 325 mg Calcium Acetate (Phoslo) 1,334 mg PO CCTID [facility] Last Admin: 09/22/16 08:15 Dose: 1,334 mg Epoetin Arash (Procrit) 10,000 unit IV TTS [facility] Stop: 09/26/16 10:01 Last Admin: 09/19/16 11:47 Dose: 10,000 unit Famotidine (Pepcid) 20 mg PO DAILY [facility] Last Admin: 09/21/16 09:23 Dose: 20 mg Ferric Sodium Gluconate Complex (Ferrlecit) 62.5 mg IVPB QWK [facility] Stop: 10/01/16 10:01 Heparin Sodium (Porcine) (Heparin) 5,000 units SC Q12 [facility] Last Admin: 09/21/16 22:08 Dose: 5,000 units Hydralazine HCl (Apresoline) 100 mg PO Q8H [facility] Last Admin: 09/22/16 06:09 Dose: 100 mg Vancomycin HCl/Dextrose (Vancocin) 100 mls @ 100 mls/hr IVPB TTS [facility] Last Admin: 09/19/16 12:36 Dose: 100 mls/hr Metoclopramide HCl (Reglan) 10 mg IVP Q6 PRN PRN Reason: Nausea/Vomiting Last Admin: 09/18/16 08:08 Dose: 10 mg Paricalcitol (Zemplar) 2 mcg IV TTS [facility] Last Admin: 09/19/16 11:45 Dose: 2 mcg Prednisone (Prednisone Tab) 40 mg PO DAILY [facility] PRN Reason: Taper Stop: 10/03/16 15:28 Last Admin: 09/21/16 09:26 Dose: 50 mg Tramadol HCl (Ultram) 50 mg PO TID [facility] Last Admin: 09/21/16 17:32 Dose: Not Given - Labs Labs: 09/21/16 06:46 09/21/16 06:46 PT 11.2 SECONDS (9.7-12.2) 09/14/16 16:33 INR 1.0 09/14/16 16:33 APTT 29 SECONDS (21-34) 09/14/16 16:33 - Constitutional Appears: Non-toxic, No Acute Distress - Head Exam Head Exam: ATRAUMATIC, NORMAL INSPECTION, NORMOCEPHALIC - Eye Exam Eye Exam: EOMI, Normal appearance, PERRL Pupil Exam: NORMAL ACCOMODATION, PERRL - ENT Exam ENT Exam: Mucous Membranes Moist, Normal Exam - Neck Exam Neck Exam: Full ROM, Normal Inspection - Respiratory Exam Respiratory Exam: Clear to Ausculation Bilateral, NORMAL BREATHING PATTERN. absent: Chest Wall Tenderness, Rales, Rhonchi, Wheezes, Respiratory Distress - Cardiovascular Exam Cardiovascular Exam: REGULAR RHYTHM, +S1, +S2 - GI/Abdominal Exam GI & Abdominal Exam: Soft, Normal Bowel Sounds. absent: Tenderness - Extremities Exam Extremities Exam: Tenderness (over LUE surgical site). absent: Pedal Edema Additional comments: LUE w/dressing in place- C/D/I, no erythem noted at dressing margins. - Back Exam Back Exam: Full ROM, NORMAL INSPECTION. absent: paraspinal tenderness - Neurological Exam Neurological Exam: Alert, Awake, CN II-XII Intact, Oriented x3 - Psychiatric Exam Psychiatric exam: Normal Affect, Normal Mood - Skin Skin Exam: Dry, Intact, Normal Color, Warm Assessment and Plan - Assessment and Plan (Free Text) Assessment: 1) Metabolic Acidosis, Chronic Kidney Disease POD#5 s/p LUE AVF creation Nephrology (Dr. Orosco) on board Vascular surgeon (Dr. Louis) on board- signed off, to FU in office for dressing removal in 2-3 weeks Dialysis TTS hepatitis panel neg 2) Anemia Chronic; anemia of chronic disease Iron and % iron levels are normal; ferritin normal, hgb low, tibc low Stool occult blood negative. reticulocyte count: normal No prior GI workup; recommended f/u GI outpatient for screening baseline colonoscopy started on Epocrit 10,000 IV T/Th/Sat Ferrlecit 62.5mg IVP Qwkly Hgb: FU tomorrow No obvious signs of bleeding Monitor 3) Hypertension BP 141/84 Controlled Cont hydralazine 75mg PO Q 8 hours Patient is currently on dialysis T/Th/Sat schedule monitor vital signs 4) Chronic Headache Neurology (Dr. Currie)- following Reglan PRN Q6H nausea Elevated ESR on admission- down trending On Prednisone 40mg PO tapering down Q3days Prednisone 40mg PO daily X3, Prednisone 30mg PO Daily X3, Prednisone 20mg PO daily X3 Brain MRI (09/15/16): no acute infarction and no intercranial hemorrhage; mild chronic white matter changes Head MRA (09/15/16): no evidence of significant stenosis, aneurysm, no occlusion Neck MRA (09/15/16): no evidence of signficiant occlusion or stenosis 5) Leukocytosis POD 4 FU labs in AM afebrile Repeat cultures neg x 24H Procalc 0.7- low Pt on steroid taper Vancomycin 500mg IV TThSat (started 09/19/16) Blood culture (09/17/16) neg x 4D monitor 6) Prophylactic care Pepcid 20mg PO daily for gi pxx Heparin 5000 units subq 12hours for DVT ppx Dialysis placement per case management 7) Dispo: Labs Q2D with dialysis Cont with current mgmt Renal diet Discharge pending finding HD placement- awaiting [facility] attending <Kofi Cuellar - Last Filed: 09/22/16 14:17> Objective - Vital Signs/Intake and Output Vital Signs (last 24 hours): Temp Pulse Resp BP Pulse Ox 97.9 F 87 97 H 152/81 H 97 09/22/16 11:50 09/22/16 13:45 09/22/16 11:50 09/22/16 13:45 09/22/16 11:50 Intake and Output: 09/22/16 09/22/16 06:59 18:59 Intake Total 10 Balance 10 - Medications Medications: Current Medications Acetaminophen (Tylenol 325 Mg Supp) 325 mg MS Q4 PRN PRN Reason: Headache Last Admin: 09/16/16 07:02 Dose: 325 mg Calcium Acetate (Phoslo) 1,334 mg PO CCTID [facility] Last Admin: 09/22/16 12:30 Dose: 1,334 mg Epoetin Arash (Procrit) 10,000 unit IV TTS [facility] Stop: 09/26/16 10:01 Last Admin: 09/22/16 10:42 Dose: 10,000 unit Famotidine (Pepcid) 20 mg PO DAILY [facility] Last Admin: 09/22/16 12:30 Dose: 20 mg Ferric Sodium Gluconate Complex (Ferrlecit) 62.5 mg IVPB QWK [facility] Stop: 09/30/16 10:31 Last Admin: 09/22/16 10:44 Dose: 62.5 mg Heparin Sodium (Porcine) (Heparin) 5,000 units SC Q12 [facility] Last Admin: 09/22/16 10:00 Dose: Not Given Hydralazine HCl (Apresoline) 100 mg PO Q8H [facility] Last Admin: 09/22/16 13:52 Dose: 100 mg Vancomycin HCl/Dextrose (Vancocin) 100 mls @ 100 mls/hr IVPB TTS [facility] Last Admin: 09/22/16 12:30 Dose: 100 mls/hr Metoclopramide HCl (Reglan) 10 mg IVP Q6 PRN PRN Reason: Nausea/Vomiting Last Admin: 09/18/16 08:08 Dose: 10 mg Paricalcitol (Zemplar) 2 mcg IV TTS [facility] Last Admin: 09/22/16 10:44 Dose: 2 mcg Prednisone (Prednisone Tab) 40 mg PO DAILY [facility] PRN Reason: Taper Stop: 10/03/16 15:28 Last Admin: 09/22/16 12:30 Dose: 40 mg Tramadol HCl (Ultram) 50 mg PO TID [facility] Last Admin: 09/22/16 13:53 Dose: Not Given - Labs Labs: 09/21/16 06:46 09/21/16 06:46 PT 11.2 SECONDS (9.7-12.2) 09/14/16 16:33 INR 1.0 09/14/16 16:33 APTT 29 SECONDS (21-34) 09/14/16 16:33 Attending/Attestation - Attestation I have personally seen and examined this patient.: Yes I have fully participated in the care of the patient.: Yes I have reviewed all pertinent clinical information, including history, physical exam and plan: Yes Notes (Text): Medical Attending: Patient was seen and examined by me. Agree with the above note note by the resident. She was having HD when we saw her. She reported doing ok while on the HD. At this time we are waiting on outpatient HD placement. From discussion with case workers this will be difficult due to immigration status and no insurance coverage/natan care/self pay Kofi Cuellar
[2016-09-22] MEDS: Vancomycin 500mg/D5W 100 ml 100 ML IVPB SCH ×2 (10:07→12:30)
[2016-09-22] MEDS: Paricalcitol 2 mcg/ml Inj IV SCH ×2 (10:07→10:44)
[2016-09-22] MEDS: Epoetin Alfa 10,000 unit/ml Dialysis IV SCH (10:42)
[2016-09-22] MEDS: Ferric Sodium Gluconat Complex 62.5 mg/5 ml Vial IVPB SCH (10:44)
--- NOTE | 2016-09-22 16:09 | CP.PCM.PN ---
Subjective - Date & Time of Evaluation Date of Evaluation: 09/22/16 Time of Evaluation: 11:30 - Subjective Subjective: Seen on dialysis. Feels better. No headaches Objective - Vital Signs/Intake and Output Vital Signs (last 24 hours): Temp Pulse Resp BP Pulse Ox 98.6 F 76 20 138/51 L 98 09/22/16 15:36 09/22/16 15:36 09/22/16 15:36 09/22/16 15:36 09/22/16 15:36 Intake and Output: 09/22/16 09/22/16 06:59 18:59 Intake Total 10 350 Balance 10 350 - Medications Medications: Current Medications Acetaminophen (Tylenol 325 Mg Supp) 325 mg [place] Q4 PRN PRN Reason: Headache Last Admin: 09/16/16 07:02 Dose: 325 mg Calcium Acetate (Phoslo) 1,334 mg PO CCTID [facility] Last Admin: 09/22/16 12:30 Dose: 1,334 mg Epoetin Arash (Procrit) 10,000 unit IV TTS [facility] Stop: 09/26/16 10:01 Last Admin: 09/22/16 10:42 Dose: 10,000 unit Famotidine (Pepcid) 20 mg PO DAILY [facility] Last Admin: 09/22/16 12:30 Dose: 20 mg Ferric Sodium Gluconate Complex (Ferrlecit) 62.5 mg IVPB QWK [facility] Stop: 09/30/16 10:31 Last Admin: 09/22/16 10:44 Dose: 62.5 mg Heparin Sodium (Porcine) (Heparin) 5,000 units SC Q12 [facility] Last Admin: 09/22/16 10:00 Dose: Not Given Hydralazine HCl (Apresoline) 100 mg PO Q8H [facility] Last Admin: 09/22/16 13:52 Dose: 100 mg Vancomycin HCl/Dextrose (Vancocin) 100 mls @ 100 mls/hr IVPB TTS [facility] Last Admin: 09/22/16 12:30 Dose: 100 mls/hr Metoclopramide HCl (Reglan) 10 mg IVP Q6 PRN PRN Reason: Nausea/Vomiting Last Admin: 09/18/16 08:08 Dose: 10 mg Paricalcitol (Zemplar) 2 mcg IV TTS [facility] Last Admin: 09/22/16 10:44 Dose: 2 mcg Prednisone (Prednisone Tab) 40 mg PO DAILY [facility] PRN Reason: Taper Stop: 10/03/16 15:28 Last Admin: 09/22/16 12:30 Dose: 40 mg Tramadol HCl (Ultram) 50 mg PO TID [facility] Last Admin: 09/22/16 13:53 Dose: Not Given - Labs Labs: 09/21/16 06:46 09/21/16 06:46 PT 11.2 SECONDS (9.7-12.2) 09/14/16 16:33 INR 1.0 09/14/16 16:33 APTT 29 SECONDS (21-34) 09/14/16 16:33 - Respiratory Exam Additional comments: Lungs clear - Cardiovascular Exam Cardiovascular Exam: REGULAR RHYTHM - Extremities Exam Additional comments: No edema Assessment and Plan - Assessment and Plan (Free Text) Assessment: ESRD on dialysis HTN Anemia Plan: Stable on dialysis Hb stable Continue HD per schedule
[2016-09-23] MEDS ORDERED: Ferric Sodium Gluconat Complex 62.5 mg/5 ml Vial IVPB SCH (10:00)
--- NOTE | 2016-09-23 10:16 | CP.PCM.PN ---
Addendum entered and electronically signed by Edilma Hyde DO 09/23/16 14:33: Spoke with patient using Patient Liaison Assistant Spa Director - pt informed that she will be in the hospital until a dialysis center accepts her as a patient for ongoing dialysis, informed that she will need dialysis for rest of her life and it will be important for her to go regularly. Pt was informed finding a dialysis center to accept her is a difficult and time consuming process. Pt expressed understanding. Pt originally from [facility]- has been living in [place] for 18 yrs. Original Note: <Edilma Hyde - Last Filed: 09/23/16 10:13> Subjective - Date & Time of Evaluation Date of Evaluation: 09/23/16 Time of Evaluation: 10:00 - Subjective Subjective: Internal medicine progress note for Hospitalist service- Edilma Hyde, PGY-1 Pt S & E at bedside. Pt continues with minimal headache, did not sleep due to noisy roommate, has minimal LUE pain over surgical site. No other complaints. Denies N/V/F/C, SOB , CP, abdominal pain, is ambulating, tolerating diet, moving bowels, urinating ok. Objective - Vital Signs/Intake and Output Vital Signs (last 24 hours): Temp Pulse Resp BP Pulse Ox 98.5 F 76 17 133/67 98 09/23/16 07:10 09/23/16 08:00 09/23/16 07:10 09/23/16 07:10 09/23/16 07:10 Intake and Output: 09/23/16 09/23/16 06:59 18:59 Intake Total 350 Balance 350 - Medications Medications: Current Medications Acetaminophen (Tylenol 325 Mg Supp) 325 mg [place] Q4 PRN PRN Reason: Headache Last Admin: 09/16/16 07:02 Dose: 325 mg Calcium Acetate (Phoslo) 1,334 mg PO CCTID [facility] Last Admin: 09/23/16 08:22 Dose: 1,334 mg Epoetin Arash (Procrit) 10,000 unit IV TTS [facility] Stop: 09/26/16 10:01 Last Admin: 09/22/16 10:42 Dose: 10,000 unit Famotidine (Pepcid) 20 mg PO DAILY [facility] Last Admin: 09/23/16 09:24 Dose: 20 mg Ferric Sodium Gluconate Complex (Ferrlecit) 62.5 mg IVPB QWK [facility] Stop: 09/30/16 10:31 Last Admin: 09/22/16 10:44 Dose: 62.5 mg Heparin Sodium (Porcine) (Heparin) 5,000 units SC Q12 [facility] Last Admin: 09/23/16 09:25 Dose: 5,000 units Hydralazine HCl (Apresoline) 100 mg PO Q8H [facility] Last Admin: 09/23/16 06:02 Dose: 100 mg Vancomycin HCl/Dextrose (Vancocin) 100 mls @ 100 mls/hr IVPB TTS [facility] Last Admin: 09/22/16 12:30 Dose: 100 mls/hr Metoclopramide HCl (Reglan) 10 mg IVP Q6 PRN PRN Reason: Nausea/Vomiting Last Admin: 09/18/16 08:08 Dose: 10 mg Paricalcitol (Zemplar) 2 mcg IV TTS [facility] Last Admin: 09/22/16 10:44 Dose: 2 mcg Prednisone (Prednisone Tab) 40 mg PO DAILY [facility] PRN Reason: Taper Stop: 10/03/16 15:28 Last Admin: 09/23/16 09:24 Dose: 40 mg Tramadol HCl (Ultram) 50 mg PO TID [facility] Last Admin: 09/23/16 09:24 Dose: Not Given - Labs Labs: 09/21/16 06:46 09/21/16 06:46 PT 11.2 SECONDS (9.7-12.2) 09/14/16 16:33 INR 1.0 09/14/16 16:33 APTT 29 SECONDS (21-34) 09/14/16 16:33 - Constitutional Appears: Non-toxic, No Acute Distress - Head Exam Head Exam: ATRAUMATIC, NORMAL INSPECTION, NORMOCEPHALIC - Eye Exam Eye Exam: EOMI, Normal appearance, PERRL Pupil Exam: NORMAL ACCOMODATION, PERRL - ENT Exam ENT Exam: Mucous Membranes Moist, Normal Exam - Neck Exam Neck Exam: Full ROM, Normal Inspection - Respiratory Exam Respiratory Exam: Clear to Ausculation Bilateral, NORMAL BREATHING PATTERN. absent: Chest Wall Tenderness, Rales, Rhonchi, Wheezes, Stridor - Cardiovascular Exam Cardiovascular Exam: REGULAR RHYTHM, +S1, +S2 - GI/Abdominal Exam GI & Abdominal Exam: Soft, Normal Bowel Sounds. absent: Tenderness - Extremities Exam Extremities Exam: Full ROM. absent: Normal Inspection (LUE dressing - C/D/I, decreased TTP over proximal aspect of surgical site, distal aspect of limb with minimal swelling, motor intact, sensation intact), Pedal Edema - Back Exam Back Exam: Full ROM, NORMAL INSPECTION - Neurological Exam Neurological Exam: Alert, Awake, CN II-XII Intact, Oriented x3 - Psychiatric Exam Psychiatric exam: Normal Affect, Normal Mood - Skin Skin Exam: Dry, Intact, Normal Color, Warm Assessment and Plan - Assessment and Plan (Free Text) Assessment: 1) Metabolic Acidosis, Chronic Kidney Disease POD#6 s/p LUE AVF creation Nephrology (Dr. Orosco) on board Vascular surgeon (Dr. Louis) on board- signed off, to FU in office for dressing removal in 2-3 weeks Cont Dialysis TTS hepatitis panel neg 2) Anemia Chronic; anemia of chronic disease Iron and % iron levels are normal; ferritin normal, hgb low, tibc low Stool occult blood negative. reticulocyte count: normal No prior GI workup; recommended f/u GI outpatient for screening baseline colonoscopy started on Epocrit 10,000 IV T/Th/Sat Ferrlecit 62.5mg IVP Qwkly Hgb: FU tomorrow No obvious signs of bleeding Monitor 3) Hypertension BP 151/88 Controlled Cont hydralazine 75mg PO Q 8 hours Patient is currently on dialysis T//Wed schedule monitor vital signs 4) Chronic Headache Neurology (Dr. Currie)- following Reglan PRN Q6H nausea Elevated ESR on admission- down trending On Prednisone 40mg PO tapering down Q3days Prednisone 40mg PO daily X3, Prednisone 30mg PO Daily X3, Prednisone 20mg PO daily X3 Brain MRI (09/15/16): no acute infarction and no intercranial hemorrhage; mild chronic white matter changes Head MRA (09/15/16): no evidence of significant stenosis, aneurysm, no occlusion Neck MRA (09/15/16): no evidence of signficiant occlusion or stenosis 5) Leukocytosis POD 4 FU labs after HD afebrile Repeat cultures neg x 48H Blood cx neg x 5D Procalc 0.7- low Pt on steroid taper Vancomycin 500mg IV TThSat (started 09/19/16) Monitor 6) Prophylactic care Pepcid 20mg PO daily for gi pxx Heparin 5000 units subq 12hours for DVT ppx Dialysis placement per case management 7) Dispo: Labs Q2D with dialysis Cont with current mgmt Renal diet Discharge pending finding HD placement- awaiting [facility] attending <Kofi Cuellar H - Last Filed: 09/23/16 14:54> Objective - Vital Signs/Intake and Output Vital Signs (last 24 hours): Temp Pulse Resp BP Pulse Ox 98.5 F 87 17 162/76 H 98 09/23/16 07:10 09/23/16 14:15 09/23/16 07:10 09/23/16 14:15 09/23/16 07:10 Intake and Output: 09/23/16 09/23/16 06:59 18:59 Intake Total 350 Balance 350 - Medications Medications: Current Medications Acetaminophen (Tylenol 325 Mg Supp) 325 mg [place] Q4 PRN PRN Reason: Headache Last Admin: 09/16/16 07:02 Dose: 325 mg Calcium Acetate (Phoslo) 1,334 mg PO CCTID [facility] Last Admin: 09/23/16 13:16 Dose: 1,334 mg Epoetin Arash (Procrit) 10,000 unit IV TTS [facility] Stop: 09/26/16 10:01 Last Admin: 09/22/16 10:42 Dose: 10,000 unit Famotidine (Pepcid) 20 mg PO DAILY [facility] Last Admin: 09/23/16 09:24 Dose: 20 mg Ferric Sodium Gluconate Complex (Ferrlecit) 62.5 mg IVPB QWK [facility] Stop: 09/30/16 10:31 Last Admin: 09/22/16 10:44 Dose: 62.5 mg Heparin Sodium (Porcine) (Heparin) 5,000 units SC Q12 [facility] Last Admin: 09/23/16 09:25 Dose: 5,000 units Hydralazine HCl (Apresoline) 100 mg PO Q8H [facility] Last Admin: 09/23/16 14:12 Dose: 100 mg Vancomycin HCl/Dextrose (Vancocin) 100 mls @ 100 mls/hr IVPB TTS [facility] Last Admin: 09/22/16 12:30 Dose: 100 mls/hr Metoclopramide HCl (Reglan) 10 mg IVP Q6 PRN PRN Reason: Nausea/Vomiting Last Admin: 09/18/16 08:08 Dose: 10 mg Paricalcitol (Zemplar) 2 mcg IV TTS [facility] Last Admin: 09/22/16 10:44 Dose: 2 mcg Prednisone (Prednisone Tab) 40 mg PO DAILY [facility] PRN Reason: Taper Stop: 10/03/16 15:28 Last Admin: 09/23/16 09:24 Dose: 40 mg Tramadol HCl (Ultram) 50 mg PO TID [facility] Last Admin: 09/23/16 09:24 Dose: Not Given - Labs Labs: 09/21/16 06:46 09/21/16 06:46 PT 11.2 SECONDS (9.7-12.2) 09/14/16 16:33 INR 1.0 09/14/16 16:33 APTT 29 SECONDS (21-34) 09/14/16 16:33 Attending/Attestation - Attestation I have personally seen and examined this patient.: Yes I have fully participated in the care of the patient.: Yes I have reviewed all pertinent clinical information, including history, physical exam and plan: Yes Notes (Text): Medical Attending: Patient was seen and examined by me. She was actively walking in the hallway. She did not have any acute concerns when we saw her. We are still pending on finding a place for her to get HD, and this may take a long time. thank you Kofi Cuellar
--- NOTE | 2016-09-23 16:17 | CP.PCM.PN ---
Subjective - Date & Time of Evaluation Date of Evaluation: 09/23/16 Time of Evaluation: 04:30 - Subjective Subjective: No c/o PURI, nausea Objective - Vital Signs/Intake and Output Vital Signs (last 24 hours): Temp Pulse Resp BP Pulse Ox 98.6 F 81 20 151/73 H 96 09/23/16 16:02 09/23/16 16:02 09/23/16 16:02 09/23/16 16:02 09/23/16 16:02 Intake and Output: 09/23/16 09/23/16 06:59 18:59 Intake Total 350 420 Balance 350 420 - Medications Medications: Current Medications Acetaminophen (Tylenol 325 Mg Supp) 325 mg [place] Q4 PRN PRN Reason: Headache Last Admin: 09/16/16 07:02 Dose: 325 mg Calcium Acetate (Phoslo) 1,334 mg PO CCTID [facility] Last Admin: 09/23/16 13:16 Dose: 1,334 mg Epoetin Arash (Procrit) 10,000 unit IV TTS [facility] Stop: 09/26/16 10:01 Last Admin: 09/22/16 10:42 Dose: 10,000 unit Famotidine (Pepcid) 20 mg PO DAILY [facility] Last Admin: 09/23/16 09:24 Dose: 20 mg Ferric Sodium Gluconate Complex (Ferrlecit) 62.5 mg IVPB QWK [facility] Stop: 09/30/16 10:31 Last Admin: 09/22/16 10:44 Dose: 62.5 mg Heparin Sodium (Porcine) (Heparin) 5,000 units SC Q12 [facility] Last Admin: 09/23/16 09:25 Dose: 5,000 units Hydralazine HCl (Apresoline) 100 mg PO Q8H [facility] Last Admin: 09/23/16 14:12 Dose: 100 mg Vancomycin HCl/Dextrose (Vancocin) 100 mls @ 100 mls/hr IVPB TTS [facility] Last Admin: 09/22/16 12:30 Dose: 100 mls/hr Metoclopramide HCl (Reglan) 10 mg IVP Q6 PRN PRN Reason: Nausea/Vomiting Last Admin: 09/18/16 08:08 Dose: 10 mg Paricalcitol (Zemplar) 2 mcg IV TTS [facility] Last Admin: 09/22/16 10:44 Dose: 2 mcg Prednisone (Prednisone Tab) 40 mg PO DAILY [facility] PRN Reason: Taper Stop: 10/03/16 15:28 Last Admin: 09/23/16 09:24 Dose: 40 mg Tramadol HCl (Ultram) 50 mg PO TID [facility] Last Admin: 09/23/16 13:45 Dose: Not Given - Labs Labs: 09/21/16 06:46 09/21/16 06:46 PT 11.2 SECONDS (9.7-12.2) 09/14/16 16:33 INR 1.0 09/14/16 16:33 APTT 29 SECONDS (21-34) 09/14/16 16:33 - Respiratory Exam Additional comments: Lungs clear - Cardiovascular Exam Cardiovascular Exam: REGULAR RHYTHM - Extremities Exam Additional comments: + bruit over Lt arm AVF. No edema Assessment and Plan - Assessment and Plan (Free Text) Assessment: ESRD on maintenance HD Anemia HTN Plan: Tolerating dialysis well Continue HD every TTS Monitor Hb
[2016-09-24 08:09] LABS: BASO % 0.1 % (0.0-2.0); HEMATOCRIT 32.2 % (34.0-47.0); LYMPH # 1.4 K/uL (1.0-4.3); MEAN CELL VOLUME 84.5 fL (81.0-99.0); MEAN CORPUSCULAR HEMOGLOBIN 27.5 pg (27.0-31.0); MEAN CORPUSCULAR HGB CONC 32.6 g/dL (33.0-37.0); MEAN PLATELET VOLUME 7.9 fL (7.2-11.7); MONO # 1.4 K/uL (0.0-0.8); MONO % 10.1 % (0.0-10.0); NRBC % 0.1 % (0.0-2.0); RED CELL DISTRIBUTION WIDTH 17.8 % (11.5-14.5); WHITE BLOOD COUNT 13.9 K/uL (4.8-10.8)
[2016-09-24 08:20] LABS: POTASSIUM 5.4 mmol/L (3.6-5.2)
[2016-09-24 08:22] LABS: BILIRUBIN,TOTAL 0.6 mg/dL (0.2-1.3)
[2016-09-24 08:23] LABS: ALB/GLOB RATIO 1.3 (1.0-2.1); CALCIUM 8.4 mg/dl (8.6-10.4); MAGNESIUM 2.4 mg/dL (1.6-2.3); PHOSPHOROUS 5.3 mg/dL (2.5-4.5)
[2016-09-24] MEDS: Vancomycin 500mg/D5W 100 ml 100 ML IVPB SCH ×2 (10:15→13:29)
--- NOTE | 2016-09-24 10:50 | CP.PCM.PN ---
<Edilma Hyde - Last Filed: 09/24/16 10:47> Subjective - Date & Time of Evaluation Date of Evaluation: 09/24/16 Time of Evaluation: 07:00 - Subjective Subjective: Internal medicine progress note for Hospitalist service- Edimla Hyde, PGY-1 Pt S & E at bedside. Pt continues with mild PURI, poor sleep, some pain over anticoagulation injection site over LLQ abdomen. Denies N/V/F/C, SOB, CP, eating ok/ambulating/urinating ok/moving bowels. Objective - Vital Signs/Intake and Output Vital Signs (last 24 hours): Temp Pulse Resp BP Pulse Ox 98.1 F 82 16 140/74 97 09/24/16 09:30 09/24/16 09:30 09/24/16 09:30 09/24/16 10:00 09/24/16 09:30 Intake and Output: 09/24/16 09/24/16 06:59 18:59 Intake Total 100 Balance 100 - Medications Medications: Current Medications Acetaminophen (Tylenol 325 Mg Supp) 325 mg MT Q4 PRN PRN Reason: Headache Last Admin: 09/16/16 07:02 Dose: 325 mg Calcium Acetate (Phoslo) 1,334 mg PO CCTID [facility] Last Admin: 09/24/16 08:16 Dose: 1,334 mg Epoetin Arash (Procrit) 10,000 unit IV TTS [facility] Stop: 09/26/16 10:01 Last Admin: 09/22/16 10:42 Dose: 10,000 unit Famotidine (Pepcid) 20 mg PO DAILY [facility] Last Admin: 09/23/16 09:24 Dose: 20 mg Ferric Sodium Gluconate Complex (Ferrlecit) 62.5 mg IVPB QWK [facility] Stop: 09/30/16 10:31 Last Admin: 09/22/16 10:44 Dose: 62.5 mg Heparin Sodium (Porcine) (Heparin) 5,000 units SC Q12 [facility] Last Admin: 09/23/16 09:25 Dose: 5,000 units Heparin Sodium (Porcine) (Heparin) 3,700 units IVP TTS [facility] Stop: 10/06/16 10:01 Hydralazine HCl (Apresoline) 100 mg PO Q8H [facility] Last Admin: 09/24/16 06:04 Dose: 100 mg Vancomycin HCl/Dextrose (Vancocin) 100 mls @ 100 mls/hr IVPB TTS [facility] Last Admin: 09/22/16 12:30 Dose: 100 mls/hr Metoclopramide HCl (Reglan) 10 mg IVP Q6 PRN PRN Reason: Nausea/Vomiting Last Admin: 09/18/16 08:08 Dose: 10 mg Paricalcitol (Zemplar) 2 mcg IV TTS [facility] Last Admin: 09/22/16 10:44 Dose: 2 mcg Prednisone (Prednisone Tab) 40 mg PO DAILY [facility] PRN Reason: Taper Stop: 10/03/16 15:28 Last Admin: 09/23/16 09:24 Dose: 40 mg Tramadol HCl (Ultram) 50 mg PO TID [facility] Last Admin: 09/23/16 17:19 Dose: Not Given - Labs Labs: 09/24/16 07:51 09/24/16 07:51 PT 11.2 SECONDS (9.7-12.2) 09/14/16 16:33 INR 1.0 09/14/16 16:33 APTT 29 SECONDS (21-34) 09/14/16 16:33 - Constitutional Appears: Non-toxic, No Acute Distress - Head Exam Head Exam: ATRAUMATIC, NORMAL INSPECTION, NORMOCEPHALIC - Eye Exam Eye Exam: EOMI, Normal appearance, PERRL Pupil Exam: NORMAL ACCOMODATION, PERRL - ENT Exam ENT Exam: Mucous Membranes Moist, Normal Exam - Neck Exam Neck Exam: Full ROM, Normal Inspection - Respiratory Exam Respiratory Exam: Clear to Ausculation Bilateral, NORMAL BREATHING PATTERN. absent: Rhonchi, Wheezes, Respiratory Distress, Stridor - Cardiovascular Exam Cardiovascular Exam: REGULAR RHYTHM, +S1, +S2 - GI/Abdominal Exam GI & Abdominal Exam: Soft, Tenderness (over ecchymoses of LLQ), Normal Bowel Sounds - Extremities Exam Extremities Exam: Full ROM. absent: Normal Inspection (LUE w/dressing in place , notable ecchymoses on lateral/medial aspect, minimally tender to palpation), Tenderness - Back Exam Back Exam: Full ROM, NORMAL INSPECTION. absent: paraspinal tenderness - Neurological Exam Neurological Exam: Alert, Awake, CN II-XII Intact, Oriented x3 - Psychiatric Exam Psychiatric exam: Normal Affect, Normal Mood - Skin Skin Exam: Dry, Intact, Warm. absent: Normal Color (ecchymoses over LLQ, LUE medial/lateral aspect) Assessment and Plan - Assessment and Plan (Free Text) Assessment: 1) Metabolic Acidosis, Chronic Kidney Disease POD#7 s/p LUE AVF creation Nephrology (Dr. Orosoc) on board Vascular surgeon (Dr. Louis) on board- signed off, to FU in office for dressing removal in 2-3 weeks Cont Dialysis TTS hepatitis panel neg BUN 78 Cr 8.7 Hyperkalemia- 5.4 Hyperphosphatemia- 5.3 Hypermagnesemia- 2.4 -For HD today 2) Anemia Chronic; anemia of chronic disease Iron and % iron levels are normal; ferritin normal, hgb low, tibc low Stool occult blood negative. reticulocyte count: normal No prior GI workup; recommended f/u GI outpatient for screening baseline colonoscopy started on Epocrit 10,000 IV T//Sat Ferrlecit 62.5mg IVP Qwkly Hgb: FU tomorrow No obvious signs of bleeding Monitor 3) Hypertension BP 154/78 Controlled Cont hydralazine 75mg PO Q 8 hours Patient is currently HD T//Wed schedule monitor vital signs 4) Chronic Headache Neurology (Dr. Currie)- following Reglan PRN Q6H nausea Elevated ESR on admission- down trending, now 4 On Prednisone 40mg PO tapering down Q3days Prednisone 40mg PO daily X3, Prednisone 30mg PO Daily X3, Prednisone 20mg PO daily X3 Brain MRI (09/15/16): no acute infarction and no intercranial hemorrhage; mild chronic white matter changes Head MRA (09/15/16): no evidence of significant stenosis, aneurysm, no occlusion Neck MRA (09/15/16): no evidence of signficiant occlusion or stenosis 5) Leukocytosis- resolving, likely due to steroid taper 13.9 FU labs after HD afebrile Repeat cultures neg x 3D Blood cx neg x 5D Procalc 0.7- low Vancomycin 500mg IV TThSat (started 09/19/16) Monitor 6) Prophylactic care Pepcid 20mg PO daily for gi pxx Heparin 5000 units subq 12hours for DVT ppx Dialysis placement per case management 7) Dispo: Labs with dialysis Cont with current mgmt Renal diet Talked with pt on 09/23 regarding need to stay in hospital until finding HD placement, pt understands Discharge pending finding HD placement- awaiting SW attending <Kofi Cuellar H - Last Filed: 09/24/16 15:32> Objective - Vital Signs/Intake and Output Vital Signs (last 24 hours): Temp Pulse Resp BP Pulse Ox 98 F 80 16 138/84 98 09/24/16 12:30 09/24/16 12:30 09/24/16 12:30 09/24/16 12:30 09/24/16 12:30 Intake and Output: 09/24/16 09/24/16 06:59 18:59 Intake Total 100 Balance 100 - Medications Medications: Current Medications Acetaminophen (Tylenol 325 Mg Supp) 325 mg MT Q4 PRN PRN Reason: Headache Last Admin: 09/16/16 07:02 Dose: 325 mg Calcium Acetate (Phoslo) 1,334 mg PO CCTID [facility] Last Admin: 09/24/16 13:26 Dose: 1,334 mg Epoetin Arash (Procrit) 10,000 unit IV TTS [facility] Stop: 09/26/16 10:01 Last Admin: 09/24/16 12:04 Dose: 10,000 unit Famotidine (Pepcid) 20 mg PO DAILY [facility] Last Admin: 09/24/16 13:27 Dose: 20 mg Ferric Sodium Gluconate Complex (Ferrlecit) 62.5 mg IVPB QWK [facility] Stop: 09/30/16 10:31 Last Admin: 09/22/16 10:44 Dose: 62.5 mg Heparin Sodium (Porcine) (Heparin) 5,000 units SC Q12 [facility] Last Admin: 09/24/16 10:15 Dose: Not Given Heparin Sodium (Porcine) (Heparin) 3,700 units IVP TTS [facility] Stop: 10/06/16 10:01 Last Admin: 09/24/16 12:30 Dose: 3,700 units Hydralazine HCl (Apresoline) 100 mg PO Q8H [facility] Last Admin: 09/24/16 14:16 Dose: 100 mg Vancomycin HCl/Dextrose (Vancocin) 100 mls @ 100 mls/hr IVPB TTS [facility] Last Admin: 09/24/16 13:29 Dose: 100 mls/hr Metoclopramide HCl (Reglan) 10 mg IVP Q6 PRN PRN Reason: Nausea/Vomiting Last Admin: 09/18/16 08:08 Dose: 10 mg Paricalcitol (Zemplar) 2 mcg IV TTS [facility] Last Admin: 09/24/16 12:04 Dose: 2 mcg Prednisone (Prednisone Tab) 30 mg PO DAILY [facility] PRN Reason: Taper Stop: 10/03/16 15:28 Last Admin: 09/24/16 13:28 Dose: 40 mg Tramadol HCl (Ultram) 50 mg PO TID [facility] Last Admin: 09/24/16 13:25 Dose: Not Given - Labs Labs: 09/24/16 07:51 09/24/16 07:51 PT 11.2 SECONDS (9.7-12.2) 09/14/16 16:33 INR 1.0 09/14/16 16:33 APTT 29 SECONDS (21-34) 09/14/16 16:33 Attending/Attestation - Attestation I have personally seen and examined this patient.: Yes I have fully participated in the care of the patient.: Yes I have reviewed all pertinent clinical information, including history, physical exam and plan: Yes Notes (Text): Medical Attending: Patient was seen and examined by me. Agree with the above note by the resident. The patient was seen during HD - she explained that she was feeling well and did not have any acute concerns, She maybe here at the hospital for some time before she can get HD placement Kofi Cuellar
--- NOTE | 2016-09-24 10:57 | CP.PCM.PN ---
Subjective - Date & Time of Evaluation Date of Evaluation: 09/24/16 Time of Evaluation: 10:30 - Subjective Subjective: Seen on dialysis. No complaints Objective - Vital Signs/Intake and Output Vital Signs (last 24 hours): Temp Pulse Resp BP Pulse Ox 98.1 F 82 16 140/74 97 09/24/16 09:30 09/24/16 09:30 09/24/16 09:30 09/24/16 10:00 09/24/16 09:30 Intake and Output: 09/24/16 09/24/16 06:59 18:59 Intake Total 100 Balance 100 - Medications Medications: Current Medications Acetaminophen (Tylenol 325 Mg Supp) 325 mg SC Q4 PRN PRN Reason: Headache Last Admin: 09/16/16 07:02 Dose: 325 mg Calcium Acetate (Phoslo) 1,334 mg PO CCTID [facility] Last Admin: 09/24/16 08:16 Dose: 1,334 mg Epoetin Arash (Procrit) 10,000 unit IV TTS [facility] Stop: 09/26/16 10:01 Last Admin: 09/22/16 10:42 Dose: 10,000 unit Famotidine (Pepcid) 20 mg PO DAILY [facility] Last Admin: 09/23/16 09:24 Dose: 20 mg Ferric Sodium Gluconate Complex (Ferrlecit) 62.5 mg IVPB QWK [facility] Stop: 09/30/16 10:31 Last Admin: 09/22/16 10:44 Dose: 62.5 mg Heparin Sodium (Porcine) (Heparin) 5,000 units SC Q12 [facility] Last Admin: 09/23/16 09:25 Dose: 5,000 units Heparin Sodium (Porcine) (Heparin) 3,700 units IVP TTS [facility] Stop: 10/06/16 10:01 Hydralazine HCl (Apresoline) 100 mg PO Q8H [facility] Last Admin: 09/24/16 06:04 Dose: 100 mg Vancomycin HCl/Dextrose (Vancocin) 100 mls @ 100 mls/hr IVPB TTS [facility] Last Admin: 09/22/16 12:30 Dose: 100 mls/hr Metoclopramide HCl (Reglan) 10 mg IVP Q6 PRN PRN Reason: Nausea/Vomiting Last Admin: 09/18/16 08:08 Dose: 10 mg Paricalcitol (Zemplar) 2 mcg IV TTS [facility] Last Admin: 09/22/16 10:44 Dose: 2 mcg Prednisone (Prednisone Tab) 40 mg PO DAILY [facility] PRN Reason: Taper Stop: 10/03/16 15:28 Last Admin: 09/23/16 09:24 Dose: 40 mg Tramadol HCl (Ultram) 50 mg PO TID [facility] Last Admin: 09/23/16 17:19 Dose: Not Given - Labs Labs: 09/24/16 07:51 09/24/16 07:51 PT 11.2 SECONDS (9.7-12.2) 09/14/16 16:33 INR 1.0 09/14/16 16:33 APTT 29 SECONDS (21-34) 09/14/16 16:33 - Respiratory Exam Additional comments: Lungs clear - Cardiovascular Exam Cardiovascular Exam: REGULAR RHYTHM - Extremities Exam Additional comments: No edema Assessment and Plan - Assessment and Plan (Free Text) Assessment: on maintenance HD HTN Anemia Plan: Stable on dialysis .Will increase UF goal Monitor Hb
[2016-09-24] MEDS: Epoetin Alfa 10,000 unit/ml Dialysis IV SCH (12:04)
[2016-09-24] MEDS: Paricalcitol 2 mcg/ml Inj IV SCH (12:04)
--- NOTE | 2016-09-25 10:55 | CP.PCM.PN ---
<Edilma Hyde - Last Filed: 09/25/16 10:52> Subjective - Date & Time of Evaluation Date of Evaluation: 09/25/16 Time of Evaluation: 07:40 - Subjective Subjective: Internal medicine progress note for Hospitalist service- Edilma Hyde, PGY-1 Pt S & E at bedside. Pt stable- still has mild PURI, poor sleep- noisy roommate. Denies N/V/F/C, SOB, CP, eating ok/ambulating/urinating ok/moving bowels. Objective - Vital Signs/Intake and Output Vital Signs (last 24 hours): Temp Pulse Resp BP Pulse Ox 98.0 F 74 20 167/86 H 97 09/25/16 07:07 09/25/16 08:00 09/25/16 07:07 09/25/16 07:07 09/25/16 07:07 Intake and Output: 09/25/16 09/25/16 06:59 18:59 Intake Total 400 Balance 400 - Medications Medications: Current Medications Acetaminophen (Tylenol 325 Mg Supp) 325 mg MT Q4 PRN PRN Reason: Headache Last Admin: 09/16/16 07:02 Dose: 325 mg Calcium Acetate (Phoslo) 1,334 mg PO CCTID [facility] Last Admin: 09/25/16 08:22 Dose: 1,334 mg Epoetin Arash (Procrit) 10,000 unit IV TTS [facility] Stop: 09/26/16 10:01 Last Admin: 09/24/16 12:04 Dose: 10,000 unit Famotidine (Pepcid) 20 mg PO DAILY [facility] Last Admin: 09/25/16 09:08 Dose: 20 mg Ferric Sodium Gluconate Complex (Ferrlecit) 62.5 mg IVPB QWK [facility] Stop: 09/30/16 10:31 Last Admin: 09/22/16 10:44 Dose: 62.5 mg Heparin Sodium (Porcine) (Heparin) 5,000 units SC Q12 [facility] Last Admin: 09/25/16 09:09 Dose: 5,000 units Heparin Sodium (Porcine) (Heparin) 3,700 units IVP TTS [facility] Stop: 10/06/16 10:01 Last Admin: 09/24/16 12:30 Dose: 3,700 units Hydralazine HCl (Apresoline) 100 mg PO Q8H [facility] Last Admin: 09/25/16 06:39 Dose: 100 mg Metoclopramide HCl (Reglan) 10 mg IVP Q6 PRN PRN Reason: Nausea/Vomiting Last Admin: 09/18/16 08:08 Dose: 10 mg Paricalcitol (Zemplar) 2 mcg IV TTS [facility] Last Admin: 09/24/16 12:04 Dose: 2 mcg Prednisone (Prednisone Tab) 30 mg PO DAILY [facility] PRN Reason: Taper Stop: 10/03/16 15:28 Last Admin: 09/25/16 09:09 Dose: 30 mg Tramadol HCl (Ultram) 50 mg PO TID [facility] Last Admin: 09/24/16 17:57 Dose: Not Given - Labs Labs: 09/24/16 07:51 09/24/16 07:51 PT 11.2 SECONDS (9.7-12.2) 09/14/16 16:33 INR 1.0 09/14/16 16:33 APTT 29 SECONDS (21-34) 09/14/16 16:33 - Constitutional Appears: Non-toxic, No Acute Distress - Head Exam Head Exam: ATRAUMATIC, NORMAL INSPECTION, NORMOCEPHALIC - Eye Exam Eye Exam: EOMI, Normal appearance, PERRL Pupil Exam: NORMAL ACCOMODATION, PERRL - ENT Exam ENT Exam: Mucous Membranes Moist, Normal Exam - Neck Exam Neck Exam: Full ROM, Normal Inspection - Respiratory Exam Respiratory Exam: Clear to Ausculation Bilateral, NORMAL BREATHING PATTERN. absent: Chest Wall Tenderness (HD catheter in R chest wall- non tender) - Cardiovascular Exam Cardiovascular Exam: REGULAR RHYTHM, +S1, +S2 - GI/Abdominal Exam GI & Abdominal Exam: Soft, Tenderness (Over LLQ ecchymoses), Normal Bowel Sounds. absent: Distended, Firm, Guarding, Rigid - Extremities Exam Extremities Exam: Full ROM, Normal Capillary Refill. absent: Normal Inspection (LUE with dressing in place, visible ecchymoses over proximal and distal aspect of dressing, mildly tender to palpation) - Back Exam Back Exam: Full ROM, NORMAL INSPECTION - Neurological Exam Neurological Exam: Alert, Awake, CN II-XII Intact, Oriented x3 - Psychiatric Exam Psychiatric exam: Normal Affect, Normal Mood - Skin Skin Exam: Dry, Intact, Warm. absent: Normal Color (ecchymoses over prox/ distal aspect of LUE dressing, LLQ and RLQ w/ecchymoses from heparin injections) Assessment and Plan - Assessment and Plan (Free Text) Assessment: 1) Metabolic Acidosis, Chronic Kidney Disease POD#8 s/p LUE AVF creation Nephrology (Dr. Orosco) on board Vascular surgeon (Dr. Louis) on board- signed off, to FU in office for dressing removal in 2-3 weeks Cont Dialysis TTS hepatitis panel neg 2) Anemia- stable Chronic; anemia of chronic disease Iron and % iron levels are normal; ferritin normal, hgb low, tibc low Stool occult blood negative. reticulocyte count: normal No prior GI workup; recommended f/u GI outpatient for screening baseline colonoscopy started on Epocrit 10,000 IV T/Th/Sat Ferrlecit 62.5mg IVP Qwkly Hgb: FU tomorrow No obvious signs of bleeding Monitor 3) Hypertension BP 167/86 Controlled Cont hydralazine 75mg PO Q 8 hours Patient is currently HD T/Th/Sat schedule monitor vital signs 4) Chronic Headache Neurology (Dr. Currie)- following Reglan PRN Q6H nausea Elevated ESR on admission- down trending, now 4 On Prednisone 40mg PO tapering down Q3days Prednisone 30mg PO Daily X3, Prednisone 20mg PO daily X3 Brain MRI (09/15/16): no acute infarction and no intercranial hemorrhage; mild chronic white matter changes Head MRA (09/15/16): no evidence of significant stenosis, aneurysm, no occlusion Neck MRA (09/15/16): no evidence of signficiant occlusion or stenosis 5) Leukocytosis- resolving, likely due to steroid taper FU labs Q4D afebrile Repeat cultures neg x 5D Blood cx neg x 5D Urine cxr neg Procalc 0.7- low Vancomycin 500mg IV TThSat (started 09/19/16) Monitor 6) Prophylactic care Pepcid 20mg PO daily for gi pxx Heparin 5000 units subq 12hours for DVT ppx Dialysis placement per case management 7) Dispo: Labs with dialysis Cont with current mgmt Renal diet Talked with pt on 09/23 regarding need to stay in hospital until finding HD placement, pt understands Discharge pending finding HD placement- awaiting SW CHARLA attending <Kofi Cuellar - Last Filed: 09/25/16 15:02> Objective - Vital Signs/Intake and Output Vital Signs (last 24 hours): Temp Pulse Resp BP Pulse Ox 98.0 F 74 20 167/86 H 97 09/25/16 07:07 09/25/16 08:00 09/25/16 07:07 09/25/16 07:07 09/25/16 07:07 Intake and Output: 09/25/16 09/25/16 06:59 18:59 Intake Total 400 Balance 400 - Medications Medications: Current Medications Acetaminophen (Tylenol 325 Mg Supp) 325 mg MT Q4 PRN PRN Reason: Headache Last Admin: 09/16/16 07:02 Dose: 325 mg Calcium Acetate (Phoslo) 1,334 mg PO CCTID [facility] Last Admin: 09/25/16 12:17 Dose: 1,334 mg Epoetin Arash (Procrit) 10,000 unit IV TTS [facility] Stop: 09/26/16 10:01 Last Admin: 09/24/16 12:04 Dose: 10,000 unit Famotidine (Pepcid) 20 mg PO DAILY [facility] Last Admin: 09/25/16 09:08 Dose: 20 mg Ferric Sodium Gluconate Complex (Ferrlecit) 62.5 mg IVPB QWK [facility] Stop: 09/30/16 10:31 Last Admin: 09/22/16 10:44 Dose: 62.5 mg Heparin Sodium (Porcine) (Heparin) 5,000 units SC Q12 [facility] Last Admin: 09/25/16 09:09 Dose: 5,000 units Heparin Sodium (Porcine) (Heparin) 3,700 units IVP TTS [facility] Stop: 10/06/16 10:01 Last Admin: 09/24/16 12:30 Dose: 3,700 units Hydralazine HCl (Apresoline) 100 mg PO Q8H [facility] Last Admin: 09/25/16 14:06 Dose: 100 mg Metoclopramide HCl (Reglan) 10 mg IVP Q6 PRN PRN Reason: Nausea/Vomiting Last Admin: 09/18/16 08:08 Dose: 10 mg Paricalcitol (Zemplar) 2 mcg IV TTS [facility] Last Admin: 09/24/16 12:04 Dose: 2 mcg Prednisone (Prednisone Tab) 30 mg PO DAILY [facility] PRN Reason: Taper Stop: 10/03/16 15:28 Last Admin: 09/25/16 09:09 Dose: 30 mg Tramadol HCl (Ultram) 50 mg PO TID [facility] Last Admin: 09/25/16 14:09 Dose: Not Given - Labs Labs: 09/24/16 07:51 09/24/16 07:51 PT 11.2 SECONDS (9.7-12.2) 09/14/16 16:33 INR 1.0 09/14/16 16:33 APTT 29 SECONDS (21-34) 09/14/16 16:33 Attending/Attestation - Attestation I have personally seen and examined this patient.: Yes I have fully participated in the care of the patient.: Yes I have reviewed all pertinent clinical information, including history, physical exam and plan: Yes Notes (Text): Medical Attending: Patient was seen and examined by me. Agree with the above note by the resident The patient appeared to be well. No new acute changes or concerns at this time. The patient is still pending HD placement. Kofi Cuellar
--- NOTE | 2016-09-25 12:11 | CP.PCM.PN ---
Subjective - Date & Time of Evaluation Date of Evaluation: 09/25/16 Time of Evaluation: 10:00 - Subjective Subjective: C/o rash on the face Objective - Vital Signs/Intake and Output Vital Signs (last 24 hours): Temp Pulse Resp BP Pulse Ox 98.0 F 74 20 167/86 H 97 09/25/16 07:07 09/25/16 08:00 09/25/16 07:07 09/25/16 07:07 09/25/16 07:07 Intake and Output: 09/25/16 09/25/16 06:59 18:59 Intake Total 400 Balance 400 - Medications Medications: Current Medications Acetaminophen (Tylenol 325 Mg Supp) 325 mg [place] Q4 PRN PRN Reason: Headache Last Admin: 09/16/16 07:02 Dose: 325 mg Calcium Acetate (Phoslo) 1,334 mg PO CCTID [facility] Last Admin: 09/25/16 08:22 Dose: 1,334 mg Epoetin Arash (Procrit) 10,000 unit IV TTS [facility] Stop: 09/26/16 10:01 Last Admin: 09/24/16 12:04 Dose: 10,000 unit Famotidine (Pepcid) 20 mg PO DAILY [facility] Last Admin: 09/25/16 09:08 Dose: 20 mg Ferric Sodium Gluconate Complex (Ferrlecit) 62.5 mg IVPB QWK [facility] Stop: 09/30/16 10:31 Last Admin: 09/22/16 10:44 Dose: 62.5 mg Heparin Sodium (Porcine) (Heparin) 5,000 units SC Q12 [facility] Last Admin: 09/25/16 09:09 Dose: 5,000 units Heparin Sodium (Porcine) (Heparin) 3,700 units IVP TTS [facility] Stop: 10/06/16 10:01 Last Admin: 09/24/16 12:30 Dose: 3,700 units Hydralazine HCl (Apresoline) 100 mg PO Q8H [facility] Last Admin: 09/25/16 06:39 Dose: 100 mg Metoclopramide HCl (Reglan) 10 mg IVP Q6 PRN PRN Reason: Nausea/Vomiting Last Admin: 09/18/16 08:08 Dose: 10 mg Paricalcitol (Zemplar) 2 mcg IV TTS [facility] Last Admin: 09/24/16 12:04 Dose: 2 mcg Prednisone (Prednisone Tab) 30 mg PO DAILY [facility] PRN Reason: Taper Stop: 10/03/16 15:28 Last Admin: 09/25/16 09:09 Dose: 30 mg Tramadol HCl (Ultram) 50 mg PO TID [facility] Last Admin: 09/24/16 17:57 Dose: Not Given - Labs Labs: 09/24/16 07:51 09/24/16 07:51 PT 11.2 SECONDS (9.7-12.2) 09/14/16 16:33 INR 1.0 09/14/16 16:33 APTT 29 SECONDS (21-34) 09/14/16 16:33 - Respiratory Exam Additional comments: Lungs clear - Cardiovascular Exam Cardiovascular Exam: REGULAR RHYTHM - Extremities Exam Additional comments: No edema - Skin Additional comments: swelling & erythema over nasal bridge & malar areas, No rash over chest, arms or legs Assessment and Plan - Assessment and Plan (Free Text) Assessment: ESRD on maintenanace HD HTN Anemia Facial rash Plan: Pt does not want any med for rash BENJAMÍN,DNA Hb is improving Awaiting arrangements for out patient dialysis
--- NOTE | 2016-09-26 01:36 | CP.PCM.PN ---
<Thierry Durant - Last Filed: 09/26/16 01:32> Subjective - Date & Time of Evaluation Date of Evaluation: 09/26/16 Time of Evaluation: 01:32 - Subjective Subjective: PGY-1 note for hospitalist service Pt seen and examined at bedside. Pt is at baseline. Se denies any fevers, chills , chest pain, sob, nausea or vomiting. No issues with fistula. For dialysis today Objective - Vital Signs/Intake and Output Vital Signs (last 24 hours): Temp Pulse Resp BP Pulse Ox 98.2 F 84 20 139/67 98 09/25/16 23:10 09/25/16 23:10 09/25/16 23:10 09/25/16 23:10 09/25/16 23:10 Intake and Output: 09/25/16 09/26/16 18:59 06:59 Intake Total 520 320 Balance 520 320 - Medications Medications: Current Medications Acetaminophen (Tylenol 325 Mg Supp) 325 mg OR Q4 PRN PRN Reason: Headache Last Admin: 09/16/16 07:02 Dose: 325 mg Calcium Acetate (Phoslo) 1,334 mg PO CCTID [facility] Last Admin: 09/25/16 17:02 Dose: 1,334 mg Epoetin Arash (Procrit) 10,000 unit IV TTS [facility] Stop: 09/26/16 10:01 Last Admin: 09/24/16 12:04 Dose: 10,000 unit Famotidine (Pepcid) 20 mg PO DAILY [facility] Last Admin: 09/25/16 09:08 Dose: 20 mg Ferric Sodium Gluconate Complex (Ferrlecit) 62.5 mg IVPB QWK [facility] Stop: 09/30/16 10:31 Last Admin: 09/22/16 10:44 Dose: 62.5 mg Heparin Sodium (Porcine) (Heparin) 5,000 units SC Q12 [facility] Last Admin: 09/25/16 21:20 Dose: 5,000 units Heparin Sodium (Porcine) (Heparin) 3,700 units IVP TTS [facility] Stop: 10/06/16 10:01 Last Admin: 09/24/16 12:30 Dose: 3,700 units Hydralazine HCl (Apresoline) 100 mg PO Q8H [facility] Last Admin: 09/25/16 21:53 Dose: 100 mg Metoclopramide HCl (Reglan) 10 mg IVP Q6 PRN PRN Reason: Nausea/Vomiting Last Admin: 09/18/16 08:08 Dose: 10 mg Paricalcitol (Zemplar) 2 mcg IV TTS [facility] Last Admin: 09/24/16 12:04 Dose: 2 mcg Prednisone (Prednisone Tab) 30 mg PO DAILY [facility] PRN Reason: Taper Stop: 10/03/16 15:28 Last Admin: 09/25/16 09:09 Dose: 30 mg Tramadol HCl (Ultram) 50 mg PO TID [facility] Last Admin: 09/25/16 17:04 Dose: Not Given - Labs Labs: 09/24/16 07:51 09/24/16 07:51 PT 11.2 SECONDS (9.7-12.2) 09/14/16 16:33 INR 1.0 09/14/16 16:33 APTT 29 SECONDS (21-34) 09/14/16 16:33 - Constitutional Appears: Non-toxic, No Acute Distress - Head Exam Head Exam: ATRAUMATIC, NORMOCEPHALIC - Eye Exam Eye Exam: Normal appearance - Respiratory Exam Respiratory Exam: Clear to Ausculation Bilateral, NORMAL BREATHING PATTERN - Cardiovascular Exam Cardiovascular Exam: +S1, +S2 - GI/Abdominal Exam GI & Abdominal Exam: Soft, Normal Bowel Sounds - Neurological Exam Neurological Exam: Alert, Awake - Skin Skin Exam: Dry, Warm Assessment and Plan - Assessment and Plan (Free Text) Assessment: 1) Metabolic Acidosis, Chronic Kidney Disease POD#9 s/p LUE AVF creation Nephrology (Dr. Orosco) on board Vascular surgeon (Dr. Louis) on board- signed off, to FU in office for dressing removal in 2-3 weeks Cont Dialysis TTS hepatitis panel neg 2) Anemia- stable Chronic; anemia of chronic disease Iron and % iron levels are normal; ferritin normal, hgb low, tibc low Stool occult blood negative. reticulocyte count: normal No prior GI workup; recommended f/u GI outpatient for screening baseline colonoscopy started on Epocrit 10,000 IV T/Th/Sat Ferrlecit 62.5mg IVP Qwkly Hgb: FU tomorrow No obvious signs of bleeding Monitor 3) Hypertension BP 167/86 Controlled Cont hydralazine 75mg PO Q 8 hours Patient is currently HD T/Th/Sat schedule monitor vital signs 4) Chronic Headache Neurology (Dr. Currie)- following Reglan PRN Q6H nausea Elevated ESR on admission- down trending, now 4 On Prednisone 40mg PO tapering down Q3days Prednisone 30mg PO Daily X3, Prednisone 20mg PO daily X3 Brain MRI (09/15/16): no acute infarction and no intercranial hemorrhage; mild chronic white matter changes Head MRA (09/15/16): no evidence of significant stenosis, aneurysm, no occlusion Neck MRA (09/15/16): no evidence of signficiant occlusion or stenosis 5) Leukocytosis- resolving, likely due to steroid taper FU labs Q4D afebrile Repeat cultures neg x 5D Blood cx neg x 5D Urine cxr neg Procalc 0.7- low Vancomycin 500mg IV TThSat (started 09/19/16) Monitor 6) Prophylactic care Pepcid 20mg PO daily for gi pxx Heparin 5000 units subq 12hours for DVT ppx Dialysis placement per case management 7) Dispo: Labs with dialysis Cont with current mgmt Renal diet Talked with pt on 09/23 regarding need to stay in hospital until finding HD placement, pt understands Discharge pending finding HD placement- awaiting SW <Kofi Cuellar H - Last Filed: 09/26/16 10:17> Objective - Vital Signs/Intake and Output Vital Signs (last 24 hours): Temp Pulse Resp BP Pulse Ox 98.2 F 92 H 18 149/82 97 09/26/16 07:07 09/26/16 07:07 09/26/16 07:07 09/26/16 07:07 09/26/16 07:07 Intake and Output: 09/26/16 09/26/16 06:59 18:59 Intake Total 420 Balance 420 - Medications Medications: Current Medications Acetaminophen (Tylenol 325 Mg Supp) 325 mg OR Q4 PRN PRN Reason: Headache Last Admin: 09/16/16 07:02 Dose: 325 mg Calcium Acetate (Phoslo) 1,334 mg PO CCTID [facility] Last Admin: 09/26/16 08:38 Dose: 1,334 mg Famotidine (Pepcid) 20 mg PO DAILY [facility] Last Admin: 09/25/16 09:08 Dose: 20 mg Ferric Sodium Gluconate Complex (Ferrlecit) 62.5 mg IVPB QWK [facility] Stop: 09/30/16 10:31 Last Admin: 09/22/16 10:44 Dose: 62.5 mg Heparin Sodium (Porcine) (Heparin) 5,000 units SC Q12 [facility] Last Admin: 09/25/16 21:20 Dose: 5,000 units Heparin Sodium (Porcine) (Heparin) 3,700 units IVP TTS [facility] Stop: 10/06/16 10:01 Last Admin: 09/24/16 12:30 Dose: 3,700 units Hydralazine HCl (Apresoline) 100 mg PO Q8H [facility] Last Admin: 09/26/16 05:51 Dose: 100 mg Metoclopramide HCl (Reglan) 10 mg IVP Q6 PRN PRN Reason: Nausea/Vomiting Last Admin: 09/18/16 08:08 Dose: 10 mg Paricalcitol (Zemplar) 2 mcg IV TTS [facility] Last Admin: 09/24/16 12:04 Dose: 2 mcg Prednisone (Prednisone Tab) 30 mg PO DAILY [facility] PRN Reason: Taper Stop: 10/03/16 15:28 Last Admin: 09/25/16 09:09 Dose: 30 mg Tramadol HCl (Ultram) 50 mg PO TID [facility] Last Admin: 09/25/16 17:04 Dose: Not Given - Labs Labs: 09/26/16 05:53 09/26/16 05:53 PT 11.2 SECONDS (9.7-12.2) 09/14/16 16:33 INR 1.0 09/14/16 16:33 APTT 29 SECONDS (21-34) 09/14/16 16:33 Attending/Attestation - Attestation I have personally seen and examined this patient.: Yes I have fully participated in the care of the patient.: Yes I have reviewed all pertinent clinical information, including history, physical exam and plan: Yes Notes (Text): 09/26/16 10:16 Medical Attending: Patient was seen and examined by me. Agree with the above note by the resident. Family is present at this time and I had a conversation with them. Patient did not have any acute concerns or complaints. She is walking, eating, bowel movments ok as well. thank you Kofi Cuellar
[2016-09-26 06:01] LABS: BASO # 0.1 K/uL (0.0-0.2); BASO % 0.7 % (0.0-2.0); HEMATOCRIT 33.5 % (34.0-47.0); LYMPH # 1.6 K/uL (1.0-4.3); LYMPH % 10.4 % (20.0-40.0); MEAN CELL VOLUME 85.6 fL (81.0-99.0); MEAN CORPUSCULAR HEMOGLOBIN 27.4 pg (27.0-31.0); MEAN PLATELET VOLUME 7.6 fL (7.2-11.7); MONO # 0.9 K/uL (0.0-0.8); MONO % 6.4 % (0.0-10.0); NRBC % 0.2 % (0.0-2.0); RED CELL DISTRIBUTION WIDTH 18.5 % (11.5-14.5); WHITE BLOOD COUNT 14.9 K/uL (4.8-10.8)
[2016-09-26 06:16] LABS: BILIRUBIN,TOTAL 0.6 mg/dL (0.2-1.3)
[2016-09-26 06:17] LABS: ALB/GLOB RATIO 1.3 (1.0-2.1); CALCIUM 8.3 mg/dl (8.6-10.4); MAGNESIUM 2.2 mg/dL (1.6-2.3); PHOSPHOROUS 5.2 mg/dL (2.5-4.5); TOTAL PROTEIN 5.4 g/dL (6.3-8.3)
[2016-09-26] MEDS: Paricalcitol 2 mcg/ml Inj IV SCH (16:14)
[2016-09-26] MEDS ORDERED: Epoetin Alfa 10,000 unit/ml Dialysis IV ONE (16:15)
[2016-09-26] MEDS: Epoetin Alfa 10,000 unit/ml Dialysis IV SCH (16:18)
--- NOTE | 2016-09-27 00:41 | CP.PCM.PN ---
<Melissa Benítez - Last Filed: 09/27/16 01:02> Subjective - Date & Time of Evaluation Date of Evaluation: 09/27/16 Time of Evaluation: 00:30 - Subjective Subjective: PGY-[address] Cuellar Pt seen and examined at bedside this evening. Patient has no complaints other than feeling a little fatigued from dialysis. She states that her fistula site feels better. She denies headache, dizziness, fevers, chills, cp, sob, nausea, or vomiting. Objective - Vital Signs/Intake and Output Vital Signs (last 24 hours): Temp Pulse Resp BP Pulse Ox 98.7 F 92 H 20 162/77 H 98 09/26/16 19:00 09/26/16 19:15 09/26/16 19:00 09/26/16 19:00 09/26/16 19:00 Intake and Output: 09/26/16 09/27/16 18:59 06:59 Intake Total 500 Balance 500 - Medications Medications: Current Medications Acetaminophen (Tylenol 325mg Tab) 650 mg PO Q6 PRN PRN Reason: Headache Calcium Acetate (Phoslo) 1,334 mg PO CCTID [facility] Last Admin: 09/26/16 22:16 Dose: 1,334 mg Famotidine (Pepcid) 20 mg PO DAILY [facility] Last Admin: 09/26/16 10:58 Dose: 20 mg Ferric Sodium Gluconate Complex (Ferrlecit) 62.5 mg IVPB QWK [facility] Stop: 09/30/16 10:31 Last Admin: 09/22/16 10:44 Dose: 62.5 mg Heparin Sodium (Porcine) (Heparin) 5,000 units SC Q12 [facility] Last Admin: 09/26/16 22:16 Dose: 5,000 units Heparin Sodium (Porcine) (Heparin) 3,700 units IVP TTS [facility] Stop: 10/06/16 10:01 Last Admin: 09/26/16 16:15 Dose: 3,700 units Hydralazine HCl (Apresoline) 100 mg PO Q8H [facility] Last Admin: 09/26/16 22:17 Dose: 100 mg Metoclopramide HCl (Reglan) 10 mg IVP Q6 PRN PRN Reason: Nausea/Vomiting Last Admin: 09/18/16 08:08 Dose: 10 mg Paricalcitol (Zemplar) 2 mcg IV TTS [facility] Last Admin: 04/08/17 16:14 Dose: 2 mcg Prednisone (Prednisone Tab) 30 mg PO DAILY [facility] PRN Reason: Taper Stop: 10/03/16 15:28 Last Admin: 09/26/16 10:58 Dose: 30 mg Tramadol HCl (Ultram) 50 mg PO TID [facility] Last Admin: 09/26/16 18:00 Dose: Not Given - Labs Labs: 09/26/16 05:53 09/26/16 05:53 PT 11.2 SECONDS (9.7-12.2) 09/14/16 16:33 INR 1.0 09/14/16 16:33 APTT 29 SECONDS (21-34) 09/14/16 16:33 - Constitutional Appears: Well, Non-toxic, No Acute Distress - Head Exam Head Exam: ATRAUMATIC - Eye Exam Eye Exam: EOMI, Normal appearance, PERRL - ENT Exam ENT Exam: Mucous Membranes Moist - Respiratory Exam Respiratory Exam: Clear to Ausculation Bilateral, NORMAL BREATHING PATTERN. absent: Respiratory Distress - Cardiovascular Exam Cardiovascular Exam: REGULAR RHYTHM, +S1, +S2 - GI/Abdominal Exam GI & Abdominal Exam: Soft, Normal Bowel Sounds. absent: Firm, Guarding, Rigid, Tenderness - Extremities Exam Extremities Exam: Normal Inspection. absent: Calf Tenderness, Pedal Edema, Tenderness Additional comments: Fistual site bandage c/d/i - Back Exam Back Exam: NORMAL INSPECTION. absent: CVA tenderness (L), CVA tenderness (R), paraspinal tenderness - Neurological Exam Neurological Exam: Alert, Awake, CN II-XII Intact, Oriented x3 - Psychiatric Exam Psychiatric exam: Normal Affect, Normal Mood - Skin Skin Exam: Dry, Intact, Normal Color, Warm Assessment and Plan - Assessment and Plan (Free Text) Assessment: 1) Metabolic Acidosis, Chronic Kidney Disease POD#9 s/p LUE AVF creation Nephrology (Dr. Orosco) on board Vascular surgeon (Dr. Louis) on board- signed off, to FU in office for dressing removal in 2-3 weeks Cont Dialysis TTS - had dialysis yesterday hepatitis panel neg 2) Anemia- stable Chronic; anemia of chronic disease Iron and % iron levels are normal; ferritin normal, hgb low, tibc low Stool occult blood negative. reticulocyte count: normal No prior GI workup; recommended f/u GI outpatient for screening baseline colonoscopy started on Epocrit 10,000 IV T/Th/Sat Ferrlecit 62.5mg IVP Qwkly Hgb: FU tomorrow No obvious signs of bleeding Monitor 3) Hypertension BP 167/86 Controlled Cont hydralazine 75mg PO Q 8 hours Patient is currently HD T/Th/Sat schedule monitor vital signs 4) Chronic Headache Neurology (Dr. Currie)- following Reglan PRN Q6H nausea Elevated ESR on admission- down trending, now 4 On Prednisone 40mg PO tapering down Q3days Prednisone 30mg PO Daily X3, Prednisone 20mg PO daily X3 Brain MRI (09/15/16): no acute infarction and no intercranial hemorrhage; mild chronic white matter changes Head MRA (09/15/16): no evidence of significant stenosis, aneurysm, no occlusion Neck MRA (09/15/16): no evidence of signficiant occlusion or stenosis 5) Leukocytosis- resolving, likely due to steroid taper FU labs Q4D afebrile Repeat cultures neg x 5D Blood cx neg x 5D Urine cxr neg Procalc 0.7- low Vancomycin 500mg IV TThSat (started 09/19/16) Monitor 6) Prophylactic care Pepcid 20mg PO daily for gi pxx Heparin 5000 units subq 12hours for DVT ppx Dialysis placement per case management 7) Dispo: Labs with dialysis Cont with current mgmt Renal diet Talked with pt on 09/23 regarding need to stay in hospital until finding HD placement, pt understands Discharge pending finding HD placement- awaiting SW <Kofi Cuellar H - Last Filed: 09/27/16 09:45> Objective - Vital Signs/Intake and Output Vital Signs (last 24 hours): Temp Pulse Resp BP Pulse Ox 98.4 F 76 77 H 153/86 H 20 L 09/27/16 07:00 09/27/16 08:00 09/27/16 07:10 09/27/16 07:10 09/27/16 07:10 Intake and Output: 09/27/16 09/27/16 06:59 18:59 Intake Total 100 Balance 100 - Medications Medications: Current Medications Acetaminophen (Tylenol 325mg Tab) 650 mg PO Q6 PRN PRN Reason: Headache Calcium Acetate (Phoslo) 1,334 mg PO CCTID [facility] Last Admin: 09/27/16 07:53 Dose: 1,334 mg Famotidine (Pepcid) 20 mg PO DAILY [facility] Last Admin: 09/27/16 09:25 Dose: 20 mg Ferric Sodium Gluconate Complex (Ferrlecit) 62.5 mg IVPB QWK [facility] Stop: 09/30/16 10:31 Last Admin: 09/22/16 10:44 Dose: 62.5 mg Heparin Sodium (Porcine) (Heparin) 5,000 units SC Q12 [facility] Last Admin: 09/27/16 09:26 Dose: 5,000 units Heparin Sodium (Porcine) (Heparin) 3,700 units IVP TTS [facility] Stop: 10/06/16 10:01 Last Admin: 09/26/16 16:15 Dose: 3,700 units Hydralazine HCl (Apresoline) 100 mg PO Q8H [facility] Last Admin: 09/27/16 06:18 Dose: 100 mg Metoclopramide HCl (Reglan) 10 mg IVP Q6 PRN PRN Reason: Nausea/Vomiting Last Admin: 09/18/16 08:08 Dose: 10 mg Paricalcitol (Zemplar) 2 mcg IV TTS [facility] Last Admin: 09/26/16 16:14 Dose: 2 mcg Prednisone (Prednisone Tab) 30 mg PO DAILY [facility] PRN Reason: Taper Stop: 10/03/16 15:28 Last Admin: 09/27/16 09:25 Dose: 30 mg Tramadol HCl (Ultram) 50 mg PO TID [facility] Last Admin: 09/27/16 09:24 Dose: Not Given - Labs Labs: 09/26/16 05:53 09/26/16 05:53 PT 11.2 SECONDS (9.7-12.2) 09/14/16 16:33 INR 1.0 09/14/16 16:33 APTT 29 SECONDS (21-34) 09/14/16 16:33 Attending/Attestation - Attestation I have personally seen and examined this patient.: Yes I have fully participated in the care of the patient.: Yes I have reviewed all pertinent clinical information, including history, physical exam and plan: Yes
[2016-09-28 06:47] LABS: BASO # 0.1 K/uL (0.0-0.2); BASO % 0.3 % (0.0-2.0); EOS % 0.2 % (0.0-4.0); HEMATOCRIT 34.5 % (34.0-47.0); LYMPH # 1.5 K/uL (1.0-4.3); LYMPH % 9.9 % (20.0-40.0); MEAN CELL VOLUME 86.6 fL (81.0-99.0); MEAN CORPUSCULAR HEMOGLOBIN 27.5 pg (27.0-31.0); MEAN CORPUSCULAR HGB CONC 31.7 g/dL (33.0-37.0); MEAN PLATELET VOLUME 7.6 fL (7.2-11.7); MONO # 1.1 K/uL (0.0-0.8); MONO % 7.1 % (0.0-10.0); NRBC % 0.1 % (0.0-2.0); PLATELET COUNT 143 K/uL (130-400); RED CELL DISTRIBUTION WIDTH 18.9 % (11.5-14.5); WHITE BLOOD COUNT 15.6 K/uL (4.8-10.8)
[2016-09-28 07:00] LABS: POTASSIUM 5.2 mmol/L (3.6-5.2)
[2016-09-28 07:02] LABS: ALB/GLOB RATIO 1.3 (1.0-2.1); BILIRUBIN,TOTAL 0.7 mg/dL (0.2-1.3); TOTAL PROTEIN 5.4 g/dL (6.3-8.3)
[2016-09-28 07:03] LABS: CALCIUM 8.4 mg/dl (8.6-10.4); MAGNESIUM 2.3 mg/dL (1.6-2.3); PHOSPHOROUS 4.8 mg/dL (2.5-4.5)
[2016-09-28 08:20] LABS: MYELOCYTE 1 % (0-0); NEUTROPHIL 89 % (50-75); TOTAL CELLS COUNTED 100
--- NOTE | 2016-09-28 11:06 | CP.PCM.PN ---
Subjective - Date & Time of Evaluation Date of Evaluation: 09/28/16 Time of Evaluation: 11:00 - Subjective Subjective: C/o bruise over Rt abdome. No c/o pain Objective - Vital Signs/Intake and Output Vital Signs (last 24 hours): Temp Pulse Resp BP Pulse Ox 98.8 F 84 20 146/74 97 09/28/16 07:00 09/28/16 09:04 09/28/16 07:00 09/28/16 07:00 09/28/16 07:00 Intake and Output: 09/28/16 09/28/16 06:59 18:59 Intake Total 100 Balance 100 - Medications Medications: Current Medications Acetaminophen (Tylenol 325mg Tab) 650 mg PO Q6 PRN PRN Reason: Headache Calcium Acetate (Phoslo) 1,334 mg PO CCTID [facility] Last Admin: 09/28/16 08:39 Dose: 1,334 mg Famotidine (Pepcid) 20 mg PO DAILY [facility] Last Admin: 09/28/16 09:30 Dose: 20 mg Ferric Sodium Gluconate Complex (Ferrlecit) 62.5 mg IVPB QWK [facility] Stop: 09/30/16 10:31 Last Admin: 09/22/16 10:44 Dose: 62.5 mg Heparin Sodium (Porcine) (Heparin) 3,700 units IVP TTS [facility] Stop: 10/06/16 10:01 Last Admin: 09/26/16 16:15 Dose: 3,700 units Hydralazine HCl (Apresoline) 100 mg PO Q8H [facility] Last Admin: 09/28/16 06:12 Dose: 100 mg Paricalcitol (Zemplar) 2 mcg IV TTS [facility] Last Admin: 09/26/16 16:14 Dose: 2 mcg Prednisone (Prednisone Tab) 20 mg PO DAILY [facility] PRN Reason: Taper Stop: 10/03/16 15:28 Last Admin: 09/28/16 09:30 Dose: 20 mg - Labs Labs: 09/28/16 06:40 09/28/16 06:40 PT 11.2 SECONDS (9.7-12.2) 09/14/16 16:33 INR 1.0 09/14/16 16:33 APTT 29 SECONDS (21-34) 09/14/16 16:33 - Respiratory Exam Additional comments: Lungs clear - Cardiovascular Exam Cardiovascular Exam: REGULAR RHYTHM - GI/Abdominal Exam Additional comments: Mod-large superficial ecchymotic area over Lt lower abdomen - Extremities Exam Additional comments: + bruit ove Lt arm AVF Assessment and Plan - Assessment and Plan (Free Text) Assessment: ESRD on maintenance HD HTN Anemia Hb is stable Plan: Continue HD every TTS S/C heparin has been D/Josef
[2016-09-28 12:24] LABS: ANA TITER 1:40
--- NOTE | 2016-09-28 12:35 | CP.PCM.PN ---
<Edilma Hyde - Last Filed: 09/28/16 12:47> Subjective - Date & Time of Evaluation Date of Evaluation: 09/28/16 Time of Evaluation: 07:30 - Subjective Subjective: Internal medicine progress note for Hospitalist service- Edilma Hyde, PGY-1 Pt S & E at bedside. Pt reports some tenderness over LLQ, mild right sided headache, otherwise doing well. Denies N/V/F/C, CP, SOB, is tolerating diet/ambulating/sleeping ok. Objective - Vital Signs/Intake and Output Vital Signs (last 24 hours): Temp Pulse Resp BP Pulse Ox 98.8 F 84 20 146/74 97 09/28/16 07:00 09/28/16 09:04 09/28/16 07:00 09/28/16 07:00 09/28/16 07:00 Intake and Output: 09/28/16 09/28/16 06:59 18:59 Intake Total 100 Balance 100 - Medications Medications: Current Medications Acetaminophen (Tylenol 325mg Tab) 650 mg PO Q6 PRN PRN Reason: Headache Calcium Acetate (Phoslo) 1,334 mg PO CCTID [facility] Last Admin: 09/28/16 12:30 Dose: 1,334 mg Famotidine (Pepcid) 20 mg PO DAILY [facility] Last Admin: 09/28/16 09:30 Dose: 20 mg Ferric Sodium Gluconate Complex (Ferrlecit) 62.5 mg IVPB QWK [facility] Stop: 09/30/16 10:31 Last Admin: 09/22/16 10:44 Dose: 62.5 mg Heparin Sodium (Porcine) (Heparin) 3,700 units IVP TTS [facility] Stop: 10/06/16 10:01 Last Admin: 09/26/16 16:15 Dose: 3,700 units Hydralazine HCl (Apresoline) 100 mg PO Q8H [facility] Last Admin: 09/28/16 06:12 Dose: 100 mg Paricalcitol (Zemplar) 2 mcg IV TTS [facility] Last Admin: 09/26/16 16:14 Dose: 2 mcg Prednisone (Prednisone Tab) 20 mg PO DAILY [facility] PRN Reason: Taper Stop: 10/03/16 15:28 Last Admin: 09/28/16 09:30 Dose: 20 mg - Labs Labs: 09/28/16 06:40 09/28/16 06:40 PT 11.2 SECONDS (9.7-12.2) 09/14/16 16:33 INR 1.0 09/14/16 16:33 APTT 29 SECONDS (21-34) 09/14/16 16:33 - Constitutional Appears: Non-toxic, No Acute Distress - Head Exam Head Exam: ATRAUMATIC, NORMAL INSPECTION, NORMOCEPHALIC - Eye Exam Eye Exam: EOMI, Normal appearance, PERRL Pupil Exam: NORMAL ACCOMODATION, PERRL - ENT Exam ENT Exam: Mucous Membranes Moist, Normal Exam - Neck Exam Neck Exam: Full ROM, Normal Inspection - Respiratory Exam Respiratory Exam: Clear to Ausculation Bilateral, NORMAL BREATHING PATTERN. absent: Rales, Rhonchi, Wheezes, Respiratory Distress, Stridor - Cardiovascular Exam Cardiovascular Exam: REGULAR RHYTHM, +S1, +S2 - GI/Abdominal Exam GI & Abdominal Exam: Soft, Tenderness (LLQ), Mass (small palpable mass in LLQ), Normal Bowel Sounds. absent: Distended, Firm, Guarding, Rigid - Extremities Exam Extremities Exam: Full ROM. absent: Normal Inspection (LUE w/dressing in place , proximal aspect with medial ecchymoses, minimally tender to palpation), Pedal Edema - Back Exam Back Exam: Full ROM, NORMAL INSPECTION - Neurological Exam Neurological Exam: Alert, Awake, Oriented x3 - Psychiatric Exam Psychiatric exam: Normal Affect, Normal Mood - Skin Skin Exam: Dry, Intact, Warm. absent: Normal Color (moderate ecchymoses over LLQ, large ecchymoses over medial aspect of LUE, RLQ with small resolving ecchymoses) Assessment and Plan - Assessment and Plan (Free Text) Assessment: 1) Metabolic Acidosis, Chronic Kidney Disease POD#11 s/p LUE AVF creation Nephrology (Dr. Orosco) on board Vascular surgeon (Dr. Louis) on board- signed off, to FU in office for dressing removal in 2-3 weeks Cont Dialysis TTS - had dialysis yesterday hepatitis panel neg 2) Abdominal pain in LLQ -Lesion palpable in LLQ -FU ab U/S 3) Anemia- stable Chronic; anemia of chronic disease Iron and % iron levels are normal; ferritin normal, hgb low, tibc low Stool occult blood negative. reticulocyte count: normal No prior GI workup; recommended f/u GI outpatient for screening baseline colonoscopy started on Epocrit 10,000 IV T/Th/Sat Ferrlecit 62.5mg IVP Qwkly Hgb: 10.9 No obvious signs of bleeding Monitor 4) Hypertension BP 158/76 Controlled Cont hydralazine 75mg PO Q 8 hours Patient is currently HD T/Th/Sat schedule monitor vital signs 5) Chronic Headache Neurology (Dr. Currie)- following Reglan PRN Q6H nausea- d/c'd Elevated ESR on admission- down trending, now 4 On Prednisone 20mg PO daily X3. Prednisone 10mg PO daily x 3 Brain MRI (09/15/16): no acute infarction and no intercranial hemorrhage; mild chronic white matter changes Head MRA (09/15/16): no evidence of significant stenosis, aneurysm, no occlusion Neck MRA (09/15/16): no evidence of signficiant occlusion or stenosis 6) Leukocytosis- resolving, likely due to steroid taper Leukocytosis 15.6 afebrile Repeat cultures neg x 5D Blood cx neg x 5D Urine cxr neg Procalc 0.7- low Vancomycin 500mg IV TThSat (started 09/19/16) Monitor 7) Prophylactic care Pepcid 20mg PO daily for gi pxx Heparin 5000 units- d/c'd SCD's while in bed Dialysis placement per case management 8) Dispo: Labs with dialysis Cont with current mgmt Renal diet Talked with pt on 09/23 regarding need to stay in hospital until finding HD placement, pt understands Discharge pending finding HD placement- awaiting SW Dressing change on 10/02/16- will notify surgery DW attending <rEna Calloway V - Last Filed: 09/28/16 14:08> Objective - Vital Signs/Intake and Output Vital Signs (last 24 hours): Temp Pulse Resp BP Pulse Ox 98.8 F 84 20 146/74 97 09/28/16 07:00 09/28/16 09:04 09/28/16 07:00 09/28/16 07:00 09/28/16 07:00 Intake and Output: 09/28/16 09/28/16 06:59 18:59 Intake Total 100 Balance 100 - Medications Medications: Current Medications Acetaminophen (Tylenol 325mg Tab) 650 mg PO Q6 PRN PRN Reason: Headache Calcium Acetate (Phoslo) 1,334 mg PO CCTID [facility] Last Admin: 09/28/16 12:30 Dose: 1,334 mg Famotidine (Pepcid) 20 mg PO DAILY [facility] Last Admin: 09/28/16 09:30 Dose: 20 mg Ferric Sodium Gluconate Complex (Ferrlecit) 62.5 mg IVPB QWK [facility] Stop: 09/30/16 10:31 Last Admin: 09/22/16 10:44 Dose: 62.5 mg Heparin Sodium (Porcine) (Heparin) 3,700 units IVP TTS [facility] Stop: 10/06/16 10:01 Last Admin: 09/26/16 16:15 Dose: 3,700 units Hydralazine HCl (Apresoline) 100 mg PO Q8H [facility] Last Admin: 09/28/16 06:12 Dose: 100 mg Paricalcitol (Zemplar) 2 mcg IV TTS [facility] Last Admin: 09/26/16 16:14 Dose: 2 mcg Prednisone (Prednisone Tab) 20 mg PO DAILY [facility] PRN Reason: Taper Stop: 10/03/16 15:28 Last Admin: 09/28/16 09:30 Dose: 20 mg - Labs Labs: 09/28/16 06:40 09/28/16 06:40 PT 11.2 SECONDS (9.7-12.2) 09/14/16 16:33 INR 1.0 09/14/16 16:33 APTT 29 SECONDS (21-34) 09/14/16 16:33 Attending/Attestation - Attestation I have personally seen and examined this patient.: Yes I have fully participated in the care of the patient.: Yes I have reviewed all pertinent clinical information, including history, physical exam and plan: Yes Notes (Text): patient seen, examined and case discussed with day-time resident. Patient denies acute complaints except for pain limited to site where she receives DVT ppx Heparin over LLQ. Patient has apparent ecchymoses, Heparin DVT ppx held. Patient receives heparin during dialysis sessions. Patient is pending placement for dialysis center. Patient ordered for abdominal US r/o abscess over LLQ; unlikely. Assessment/Plan 1) Metabolic Acidosis, Chronic Kidney Disease POD#11 s/p LUE AVF creation * Nephrology (Dr. Orosco) on board * Vascular surgeon (Dr. Louis) on board- signed off, to FU in office for dressing removal in 2-3 weeks * Cont Dialysis TTS - * hepatitis panel neg * 09/17/16: Left arm brachial-basilic AV fistula creation * 09/14/16: placement of vazh-o-szhw-right jugular vein * pending outpatient dialysis placement * Heparin 3700 units IVP TTS * Phoslo 1334mg PO CCTID * Zemplar 2mcg IV TTS 2) Anemia- stable * Chronic; anemia of chronic disease * Iron and % iron levels are normal; ferritin normal, hgb low, tibc low * Stool occult blood negative. reticulocyte count: normal * No prior GI workup; recommended f/u GI outpatient for screening baseline colonoscopy * Epocrit 10,000 IV T//Sat * Ferrlecit 62.5mg IVP Qwkly (09/22-09/30) * No obvious signs of bleeding * Monitor 3) Hypertension * Hydralazine 100mg PO [id number] * Patient is currently HD T//Wed schedule * monitor vital signs 4) Chronic Headache * Resolved * Neurology (Dr. Currie)- following * Elevated ESR on admission has normalized * On Prednisone taper to complete 10/03/16 * Brain MRI (09/15/16): no acute infarction and no intercranial hemorrhage; mild chronic white matter changes * Head MRA (09/15/16): no evidence of significant stenosis, aneurysm, no occlusion * Neck MRA (09/15/16): no evidence of signficiant occlusion or stenosis 5) Leukocytosis- resolving, likely due to steroid taper * FU labs Q4D * afebrile * Repeat cultures neg x 5D * Blood cx neg x 5D * Urine cxr neg * Procalc 0.7- low * off antibiotics 6) Prophylactic care * Pepcid 20mg PO daily for gi pxx * discontinue Heparin 5000 units subq 12hours given ecchymoses over LLQ pain * Pending dialysis placement 7) Abdominal Pain * likely secondary to dvt ppx (injections) * r/o abscess with abdominal US; unlikely; afebrile * on exam, patient has palpatory area over LLQ
--- NOTE | 2016-09-28 18:07 | US ---
PROCEDURE: Nonvascular ultrasound HISTORY: lesion/pain in LLQ of abdomen COMPARISON: None TECHNIQUE: Standard protocol for this study/examination. FINDINGS: Solid irregular mass avascular measuring 1.3 x 1.5 cm. This does not appear to be a fluid collection or morphologically unremarkable lymph node. IMPRESSION: Left lower quadrant superficial solid avascular mass corresponding findings on physical examination. If clinically indicated common the mass is amenable to biopsy.
[2016-09-28 18:59] LABS: Interpretation Negative (Negative)
[2016-09-29] MEDS: Paricalcitol 2 mcg/ml Inj IV SCH (10:20)
[2016-09-29] MEDS: Ferric Sodium Gluconat Complex 62.5 mg/5 ml Vial IVPB SCH (10:21)
[2016-09-29 10:35] LABS: BASO % 0.2 % (0.0-2.0); EOS % 0.1 % (0.0-4.0); HEMATOCRIT 36.4 % (34.0-47.0); LYMPH # 1.6 K/uL (1.0-4.3); LYMPH % 10.6 % (20.0-40.0); MEAN CORPUSCULAR HEMOGLOBIN 28.1 pg (27.0-31.0); MEAN PLATELET VOLUME 7.9 fL (7.2-11.7); MONO % 6.2 % (0.0-10.0); RED CELL DISTRIBUTION WIDTH 19.8 % (11.5-14.5); WHITE BLOOD COUNT 15.5 K/uL (4.8-10.8)
[2016-09-29 10:41] LABS: POTASSIUM 4.9 mmol/L (3.6-5.2)
[2016-09-29 10:44] LABS: ALB/GLOB RATIO 1.4 (1.0-2.1); BILIRUBIN,TOTAL 0.4 mg/dL (0.2-1.3); CALCIUM 8.9 mg/dl (8.6-10.4); MAGNESIUM 2.5 mg/dL (1.6-2.3); PHOSPHOROUS 4.7 mg/dL (2.5-4.5); TOTAL PROTEIN 5.8 g/dL (6.3-8.3)
--- NOTE | 2016-09-29 11:28 | CP.PCM.PN ---
<Edilma Hyde - Last Filed: 09/29/16 11:25> Subjective - Date & Time of Evaluation Date of Evaluation: 09/29/16 Time of Evaluation: 06:45 - Subjective Subjective: Internal medicine progress note for Hospitalist service- Edilma Hyde, PGY-1 Pt S & E at bedside. Pt reports continued mild tenderness over LLQ, mild right sided headache- stable , LUE with minimal pain upon movement of extremity, otherwise doing well. Denies N/V/F/C, CP, SOB, is tolerating diet/ambulating/sleeping ok. For HD today Objective - Vital Signs/Intake and Output Vital Signs (last 24 hours): Temp Pulse Resp BP Pulse Ox 97.8 F 89 18 150/87 97 09/29/16 09:45 09/29/16 09:45 09/29/16 09:45 09/29/16 10:15 09/29/16 09:45 - Medications Medications: Current Medications Acetaminophen (Tylenol 325mg Tab) 650 mg PO Q6 PRN PRN Reason: Headache Calcium Acetate (Phoslo) 1,334 mg PO CCTID [facility] Last Admin: 09/29/16 08:29 Dose: 1,334 mg Famotidine (Pepcid) 20 mg PO DAILY [facility] Last Admin: 09/29/16 09:19 Dose: 20 mg Ferric Sodium Gluconate Complex (Ferrlecit) 62.5 mg IVPB QWK [facility] Stop: 09/30/16 10:31 Last Admin: 09/29/16 10:21 Dose: 62.5 mg Heparin Sodium (Porcine) (Heparin) 3,700 units IVP TTS [facility] Stop: 10/06/16 10:01 Last Admin: 09/29/16 10:20 Dose: 3,700 units Hydralazine HCl (Apresoline) 100 mg PO Q8H [facility] Last Admin: 09/29/16 06:07 Dose: 100 mg Paricalcitol (Zemplar) 2 mcg IV TTS [facility] Last Admin: 09/29/16 10:20 Dose: 2 mcg Prednisone (Prednisone Tab) 20 mg PO DAILY [facility] PRN Reason: Taper Stop: 10/03/16 15:28 Last Admin: 09/29/16 09:18 Dose: 20 mg - Labs Labs: 09/29/16 10:18 09/29/16 10:18 PT 11.2 SECONDS (9.7-12.2) 09/14/16 16:33 INR 1.0 09/14/16 16:33 APTT 29 SECONDS (21-34) 09/14/16 16:33 - Constitutional Appears: Non-toxic, No Acute Distress - Head Exam Head Exam: ATRAUMATIC, NORMAL INSPECTION, NORMOCEPHALIC - Eye Exam Eye Exam: EOMI, Normal appearance, PERRL Pupil Exam: NORMAL ACCOMODATION, PERRL - ENT Exam ENT Exam: Mucous Membranes Moist, Normal Exam - Neck Exam Neck Exam: Full ROM, Normal Inspection - Respiratory Exam Respiratory Exam: Clear to Ausculation Bilateral, NORMAL BREATHING PATTERN. absent: Chest Wall Tenderness, Decreased Breath Sounds, Rales, Rhonchi, Wheezes Additional comments: Right chest wall with HD catheter in place- non tender, no drainage noted - Cardiovascular Exam Cardiovascular Exam: REGULAR RHYTHM, +S1, +S2 - GI/Abdominal Exam GI & Abdominal Exam: Soft, Tenderness (LLQ), Mass (LLQ- small), Normal Bowel Sounds. absent: Distended, Firm, Guarding, Rigid - Extremities Exam Extremities Exam: Tenderness (minimal, LUE over AVF site). absent: Normal Inspection (LUE AVF in place with audible bruit, ecchymoses over medial aspect of LUE) - Back Exam Back Exam: Full ROM, NORMAL INSPECTION - Neurological Exam Neurological Exam: Alert, Awake, CN II-XII Intact, Oriented x3 - Psychiatric Exam Psychiatric exam: Normal Affect, Normal Mood - Skin Skin Exam: Dry, Intact, Warm. absent: Abrasion, Normal Color (ecchymoses over LUE AVF site, over LLQ- improving, over RLQ -small) Assessment and Plan - Assessment and Plan (Free Text) Assessment: 1) Metabolic Acidosis, Chronic Kidney Disease POD#12 s/p LUE AVF creation Nephrology (Dr. Orosco) on board Vascular surgeon (Dr. Louis) on board- signed off, to FU in office for dressing removal in 2-3 weeks Cont Dialysis TTS - dialysis today hepatitis panel neg Phoslo 1,334 PO CCTID per nephro Zemplar 2mcg IV TTS per nephro 2) Abdominal pain in LLQ- mild -Lesion palpable in LLQ -ab U/S w/findings of LLQ superficial solid avascular mass 1.3 x 1.5 cm - not a fluid collection or LN -Re-consulted surgery for evaluation 3) Anemia- stable Chronic; anemia of chronic disease Iron and % iron levels are normal; ferritin normal, hgb low, tibc low Stool occult blood negative. reticulocyte count: normal No prior GI workup; recommended f/u GI outpatient for screening baseline colonoscopy Ferrlecit 62.5mg IVP Qwkly Hgb: 11.6 No obvious signs of bleeding Monitor 4) Hypertension BP 148/70 Controlled Cont hydralazine 75mg PO Q 8 hours Patient is currently HD //Wed schedule monitor vital signs 5) Chronic Headache - improving Neurology (Dr. Currie)- following Reglan PRN Q6H nausea- d/c'd Elevated ESR on admission- down trending, now 4 On Prednisone 20mg PO daily X3. Prednisone 10mg PO daily x 3 Brain MRI (09/15/16): no acute infarction and no intercranial hemorrhage; mild chronic white matter changes Head MRA (09/15/16): no evidence of significant stenosis, aneurysm, no occlusion Neck MRA (09/15/16): no evidence of signficiant occlusion or stenosis 6) Leukocytosis- resolving, likely due to steroid taper Leukocytosis 15.5- stable afebrile Repeat cultures neg x 5D Blood cx neg x 5D Urine cxr neg Procalc 0.7- low Vancomycin 500mg IV TThSat (started 09/19/16) Monitor 7) Prophylactic care Pepcid 20mg PO daily Heparin 3,700 Units IVP TTS w/HD SCD's while in bed Dialysis placement per case management 8) Dispo: Labs with dialysis Cont with current mgmt Renal diet Talked with pt on 09/23 regarding need to stay in hospital until finding HD placement, pt understands Discharge pending finding HD placement- awaiting SW Dressing over LUE AVF removed on 09/29- surgery notified DW attending <Erna Calloway V - Last Filed: 09/30/16 15:09> Objective - Vital Signs/Intake and Output Vital Signs (last 24 hours): Temp Pulse Resp BP Pulse Ox 98.5 F 74 20 141/76 98 09/29/16 17:41 09/29/16 16:43 09/29/16 16:43 09/29/16 16:43 09/29/16 16:43 Intake and Output: 09/29/16 09/29/16 06:59 18:59 Intake Total 500 Balance 500 - Medications Medications: Current Medications Acetaminophen (Tylenol 325mg Tab) 650 mg PO Q6 PRN PRN Reason: Headache Last Admin: 09/29/16 17:41 Dose: 650 mg Calcium Acetate (Phoslo) 1,334 mg PO CCTID [facility] Last Admin: 09/29/16 17:40 Dose: 1,334 mg Famotidine (Pepcid) 20 mg PO DAILY [facility] Last Admin: 09/29/16 09:19 Dose: 20 mg Ferric Sodium Gluconate Complex (Ferrlecit) 62.5 mg IVPB QWK [facility] Stop: 09/30/16 10:31 Last Admin: 09/29/16 10:21 Dose: 62.5 mg Heparin Sodium (Porcine) (Heparin) 3,700 units IVP TTS [facility] Stop: 10/06/16 10:01 Last Admin: 09/29/16 10:20 Dose: 3,700 units Hydralazine HCl (Apresoline) 100 mg PO Q8H [facility] Last Admin: 09/29/16 14:05 Dose: 100 mg Paricalcitol (Zemplar) 2 mcg IV TTS [facility] Last Admin: 09/29/16 10:20 Dose: 2 mcg Prednisone (Prednisone Tab) 20 mg PO DAILY [facility] PRN Reason: Taper Stop: 10/03/16 15:28 Last Admin: 09/29/16 09:18 Dose: 20 mg - Labs Labs: 09/29/16 10:18 09/29/16 10:18 PT 11.2 SECONDS (9.7-12.2) 09/14/16 16:33 INR 1.0 09/14/16 16:33 APTT 29 SECONDS (21-34) 09/14/16 16:33 Attending/Attestation - Attestation I have personally seen and examined this patient.: Yes I have fully participated in the care of the patient.: Yes I have reviewed all pertinent clinical information, including history, physical exam and plan: Yes Notes (Text): This is a late computer entry for 09/29/16. Patient seen, examined and case discussed with day-time resident. Patient has mild ecchymoses, improving over the LLQ, reconsulted surgery to evaluate based on abdominal US findings. Patient denies other complaints. Assessment/Plan 1) Metabolic Acidosis, Chronic Kidney Disease POD#11 s/p LUE AVF creation * Nephrology (Dr. Orosco) on board * Vascular surgeon (Dr. Louis) on board- signed off, to FU in office for dressing removal in 2-3 weeks * Cont Dialysis TTS - * hepatitis panel neg * 09/17/16: Left arm brachial-basilic AV fistula creation * 09/14/16: placement of [id number]-b-[id number]-right jugular vein * pending outpatient dialysis placement * Heparin 3700 units IVP TTS * Phoslo 1334mg PO CCTID * Zemplar 2mcg IV TTS 2) Anemia- stable * Chronic; anemia of chronic disease * Iron and % iron levels are normal; ferritin normal, hgb low, tibc low * Stool occult blood negative. reticulocyte count: normal * No prior GI workup; recommended f/u GI outpatient for screening baseline colonoscopy * Epocrit 10,000 IV T/Th/Sat * Ferrlecit 62.5mg IVP Qwkly (09/22-09/30) * No obvious signs of bleeding * Monitor 3) Hypertension * Hydralazine 100mg PO [id number] * Patient is currently HD T//Wed schedule * monitor vital signs 4) Chronic Headache * Resolved * Neurology (Dr. Currie)- following * Elevated ESR on admission has normalized * On Prednisone taper to complete 10/03/16 * Brain MRI (09/15/16): no acute infarction and no intercranial hemorrhage; mild chronic white matter changes * Head MRA (09/15/16): no evidence of significant stenosis, aneurysm, no occlusion * Neck MRA (09/15/16): no evidence of signficiant occlusion or stenosis 5) Leukocytosis- resolving, likely due to steroid taper * FU labs Q4D * afebrile * Repeat cultures neg x 5D * Blood cx neg x 5D * Urine cxr neg * Procalc 0.7- low * off antibiotics 6) Prophylactic care * Pepcid 20mg PO daily for gi pxx * discontinue Heparin 5000 units subq 12hours given ecchymoses over LLQ pain * Pending dialysis placement 7) Abdominal Pain * likely secondary to dvt ppx (injections) * on exam, patient has palpatory area over LLQ * Extremity nonvascular (09/28/16): left lower quadrant solid avascular mass corresponding findgins on PE
--- NOTE | 2016-09-29 12:42 | CP.PCM.PN ---
Subjective - Date & Time of Evaluation Date of Evaluation: 09/29/16 Time of Evaluation: 11:20 - Subjective Subjective: Currently on dialysis No complaints Objective - Vital Signs/Intake and Output Vital Signs (last 24 hours): Temp Pulse Resp BP Pulse Ox 97.8 F 89 18 164/86 H 97 09/29/16 09:45 09/29/16 09:45 09/29/16 09:45 09/29/16 11:45 09/29/16 09:45 - Medications Medications: Current Medications Acetaminophen (Tylenol 325mg Tab) 650 mg PO Q6 PRN PRN Reason: Headache Calcium Acetate (Phoslo) 1,334 mg PO CCTID [facility] Last Admin: 09/29/16 08:29 Dose: 1,334 mg Famotidine (Pepcid) 20 mg PO DAILY [facility] Last Admin: 09/29/16 09:19 Dose: 20 mg Ferric Sodium Gluconate Complex (Ferrlecit) 62.5 mg IVPB QWK [facility] Stop: 09/30/16 10:31 Last Admin: 09/29/16 10:21 Dose: 62.5 mg Heparin Sodium (Porcine) (Heparin) 3,700 units IVP TTS [facility] Stop: 10/06/16 10:01 Last Admin: 09/29/16 10:20 Dose: 3,700 units Hydralazine HCl (Apresoline) 100 mg PO Q8H [facility] Last Admin: 09/29/16 06:07 Dose: 100 mg Paricalcitol (Zemplar) 2 mcg IV TTS [facility] Last Admin: 09/29/16 10:20 Dose: 2 mcg Prednisone (Prednisone Tab) 20 mg PO DAILY [facility] PRN Reason: Taper Stop: 10/03/16 15:28 Last Admin: 09/29/16 09:18 Dose: 20 mg - Labs Labs: 09/29/16 10:18 09/29/16 10:18 PT 11.2 SECONDS (9.7-12.2) 09/14/16 16:33 INR 1.0 09/14/16 16:33 APTT 29 SECONDS (21-34) 09/14/16 16:33 - Respiratory Exam Additional comments: Lungs clear - Cardiovascular Exam Cardiovascular Exam: REGULAR RHYTHM - Extremities Exam Additional comments: No edema Assessment and Plan - Assessment and Plan (Free Text) Assessment: ESRD on HD HTN Anemia Plan: Cont HD per schedule BP still high & low sodium, will increase UF goal
--- NOTE | 2016-09-29 14:24 | CP.PCM.PN ---
Subjective - Date & Time of Evaluation Date of Evaluation: 09/29/16 Time of Evaluation: 14:19 - Subjective Subjective: Surgery: Dr. Louis Asked to come evaluate abdomen regarding possible mass in location of heparin injections. Patient states she is feeling great. She has no complaints at this time. She states in the location of where she gets her heparin injections there is a bruise and it has been present for 1 week. She denies pain to the area. Objective - Vital Signs/Intake and Output Vital Signs (last 24 hours): Temp Pulse Resp BP Pulse Ox 99.9 F H 103 H 18 149/77 98 09/29/16 13:07 09/29/16 14:04 09/29/16 13:07 09/29/16 14:04 09/29/16 13:07 - Medications Medications: Current Medications Acetaminophen (Tylenol 325mg Tab) 650 mg PO Q6 PRN PRN Reason: Headache Calcium Acetate (Phoslo) 1,334 mg PO CCTID [facility] Last Admin: 09/29/16 14:06 Dose: 1,334 mg Famotidine (Pepcid) 20 mg PO DAILY [facility] Last Admin: 09/29/16 09:19 Dose: 20 mg Ferric Sodium Gluconate Complex (Ferrlecit) 62.5 mg IVPB QWK [facility] Stop: 09/30/16 10:31 Last Admin: 09/29/16 10:21 Dose: 62.5 mg Heparin Sodium (Porcine) (Heparin) 3,700 units IVP TTS [facility] Stop: 10/06/16 10:01 Last Admin: 09/29/16 10:20 Dose: 3,700 units Hydralazine HCl (Apresoline) 100 mg PO Q8H [facility] Last Admin: 09/29/16 14:05 Dose: 100 mg Paricalcitol (Zemplar) 2 mcg IV TTS [facility] Last Admin: 09/29/16 10:20 Dose: 2 mcg Prednisone (Prednisone Tab) 20 mg PO DAILY [facility] PRN Reason: Taper Stop: 10/03/16 15:28 Last Admin: 09/29/16 09:18 Dose: 20 mg - Labs Labs: 09/29/16 10:18 09/29/16 10:18 PT 11.2 SECONDS (9.7-12.2) 09/14/16 16:33 INR 1.0 09/14/16 16:33 APTT 29 SECONDS (21-34) 09/14/16 16:33 - Constitutional Appears: Well, Non-toxic, No Acute Distress - Head Exam Head Exam: ATRAUMATIC, NORMOCEPHALIC - Eye Exam Eye Exam: EOMI, Normal appearance - ENT Exam ENT Exam: Mucous Membranes Moist - Respiratory Exam Respiratory Exam: NORMAL BREATHING PATTERN. absent: Respiratory Distress - Cardiovascular Exam Cardiovascular Exam: REGULAR RHYTHM. absent: Tachycardia - GI/Abdominal Exam GI & Abdominal Exam: Soft. absent: Distended, Guarding, Tenderness, Rebound Additional comments: ecchymosis in lower abdomen left quadrant in site of heparin injections, small round mass palpated in subcutaneous layer, mobile, nontender. most likely small hematoma. Assessment and Plan - Assessment and Plan (Free Text) Assessment: 56 y/o female w/ ESRD s/p L arm AVF placement and abdominal wall hematoma most likely 2/2 heparin injections Plan: -will remove sutures on from AVF incision on -recommend moving heparin injection site to different location -warm compress to the area of ecchymosis -will monitor -no surgical intervention -d/w Dr. Missy Denise PGY1
--- NOTE | 2016-09-30 14:21 | CP.PCM.PN ---
<Edilma Hyde - Last Filed: 09/30/16 14:19> Subjective - Date & Time of Evaluation Date of Evaluation: 09/30/16 Time of Evaluation: 07:40 - Subjective Subjective: Internal medicine progress note for Hospitalist service- Edilma Hyde, PGY-1 Pt S & E at bedside. Pt still reporting mild tenderness over LLQ area where she was receiving Heparin SQ injections, mild right sided headache- stable, LUE with minimal pain upon movement of extremity, otherwise doing well. Denies N/V/F/C, CP, SOB, is tolerating diet/ambulating/sleeping ok. Objective - Vital Signs/Intake and Output Vital Signs (last 24 hours): Temp Pulse Resp BP Pulse Ox 98.1 F 78 20 142/77 96 09/30/16 07:00 09/30/16 08:00 09/30/16 07:00 09/30/16 07:00 09/30/16 07:00 - Medications Medications: Current Medications Acetaminophen (Tylenol 325mg Tab) 650 mg PO Q6 PRN PRN Reason: Headache Last Admin: 09/29/16 17:41 Dose: 650 mg Calcium Acetate (Phoslo) 1,334 mg PO CCTID [facility] Last Admin: 09/30/16 12:02 Dose: 1,334 mg Famotidine (Pepcid) 20 mg PO DAILY [facility] Last Admin: 09/30/16 09:52 Dose: 20 mg Heparin Sodium (Porcine) (Heparin) 3,700 units IVP TTS [facility] Stop: 10/06/16 10:01 Last Admin: 09/29/16 10:20 Dose: 3,700 units Hydralazine HCl (Apresoline) 100 mg PO Q8H [facility] Last Admin: 09/30/16 05:51 Dose: 100 mg Paricalcitol (Zemplar) 2 mcg IV TTS [facility] Last Admin: 09/29/16 10:20 Dose: 2 mcg Prednisone (Prednisone Tab) 20 mg PO DAILY [facility] PRN Reason: Taper Stop: 10/03/16 15:28 Last Admin: 09/30/16 09:52 Dose: 20 mg - Labs Labs: 09/29/16 10:18 09/29/16 10:18 PT 11.2 SECONDS (9.7-12.2) 09/14/16 16:33 INR 1.0 09/14/16 16:33 APTT 29 SECONDS (21-34) 09/14/16 16:33 - Constitutional Appears: Non-toxic, No Acute Distress - Head Exam Head Exam: ATRAUMATIC, NORMAL INSPECTION, NORMOCEPHALIC - Eye Exam Eye Exam: EOMI, Normal appearance, PERRL Pupil Exam: NORMAL ACCOMODATION, PERRL - ENT Exam ENT Exam: Mucous Membranes Moist, Normal Exam - Neck Exam Neck Exam: Full ROM, Normal Inspection - Respiratory Exam Respiratory Exam: Clear to Ausculation Bilateral, NORMAL BREATHING PATTERN. absent: Accessory Muscle Use, Chest Wall Tenderness, Rales, Rhonchi, Wheezes, Respiratory Distress, Stridor - Cardiovascular Exam Cardiovascular Exam: REGULAR RHYTHM, +S1, +S2 - GI/Abdominal Exam GI & Abdominal Exam: Soft, Tenderness (LLQ over area with ecchymoses from Heparin SC injections), Mass (LLQ, tender to palpation), Normal Bowel Sounds. absent: Distended, Firm, Guarding - Extremities Exam Extremities Exam: Full ROM, Normal Inspection. absent: Pedal Edema, Tenderness - Back Exam Back Exam: Full ROM, NORMAL INSPECTION. absent: paraspinal tenderness - Neurological Exam Neurological Exam: Alert, Awake, CN II-XII Intact, Oriented x3 - Psychiatric Exam Psychiatric exam: Normal Affect, Normal Mood - Skin Skin Exam: Dry, Intact, Warm. absent: Normal Color (ecchymoses over LLQ, Right knee) Assessment and Plan - Assessment and Plan (Free Text) Assessment: 1) Metabolic Acidosis, Chronic Kidney Disease POD#13 s/p LUE AVF creation Nephrology (Dr. Orosco) on board Cont Dialysis TTS hepatitis panel neg Phoslo 1,334 PO CCTID per nephro Zemplar 2mcg IV TTS per nephro 2) Abdominal pain in LLQ- mild -Lesion palpable in LLQ -ab U/S w/findings of LLQ superficial solid avascular mass 1.3 x 1.5 cm - not a fluid collection or LN Surgery recs- warm compresses, stop HepSQ, no intervention at this time. Sutures from AVF will be removed . 3) Anemia of chronic disease - stable Iron and % iron levels are normal; ferritin normal, hgb low, tibc low Stool occult blood negative. reticulocyte count: normal No prior GI workup; recommended f/u GI outpatient for screening baseline colonoscopy Ferrlecit 62.5mg IVP Qwkly FU Hgb next week No obvious signs of bleeding Monitor 4) Hypertension BP 142/77 Controlled Cont hydralazine 75mg PO Q 8 hours Patient is currently HD T//Wed schedule monitor vital signs 5) Chronic Headache - stable Neurology (Dr. Currie)- following Elevated ESR on admission- down trending, now 4 On Prednisone 20mg PO daily X3. Prednisone 10mg PO daily x 3 Brain MRI (09/15/16): no acute infarction and no intercranial hemorrhage; mild chronic white matter changes Head MRA (09/15/16): no evidence of significant stenosis, aneurysm, no occlusion Neck MRA (09/15/16): no evidence of signficiant occlusion or stenosis 6) Leukocytosis- resolving, likely due to steroid taper FU labs next week afebrile Repeat cultures neg x 5D Blood cx neg x 5D Urine cxr neg Procalc 0.7- low Vancomycin 500mg IV TThSat (started 09/19/16) Monitor 7) Prophylactic care Pepcid 20mg PO daily Heparin 3,700 Units IVP TTS w/HD SCD's while in bed 8) Dispo: Labs weekly Cont with current mgmt Renal diet Talked with pt on 09/23 regarding need to stay in hospital until finding HD placement, pt understands Discharge pending finding HD placement- awaiting SW DW attending <Erna Calloway V - Last Filed: 09/30/16 15:12> Objective - Vital Signs/Intake and Output Vital Signs (last 24 hours): Temp Pulse Resp BP Pulse Ox 98.1 F 87 20 150/74 96 09/30/16 07:00 09/30/16 14:25 09/30/16 07:00 09/30/16 14:25 09/30/16 07:00 - Medications Medications: Current Medications Acetaminophen (Tylenol 325mg Tab) 650 mg PO Q6 PRN PRN Reason: Headache Last Admin: 09/29/16 17:41 Dose: 650 mg Calcium Acetate (Phoslo) 1,334 mg PO CCTID [facility] Last Admin: 09/30/16 12:02 Dose: 1,334 mg Famotidine (Pepcid) 20 mg PO DAILY [facility] Last Admin: 09/30/16 09:52 Dose: 20 mg Heparin Sodium (Porcine) (Heparin) 3,700 units IVP TTS [facility] Stop: 10/06/16 10:01 Last Admin: 09/29/16 10:20 Dose: 3,700 units Hydralazine HCl (Apresoline) 100 mg PO Q8H [facility] Last Admin: 09/30/16 14:27 Dose: 100 mg Paricalcitol (Zemplar) 2 mcg IV TTS [facility] Last Admin: 09/29/16 10:20 Dose: 2 mcg Prednisone (Prednisone Tab) 10 mg PO DAILY [facility] PRN Reason: Taper Stop: 10/03/16 15:28 Last Admin: 09/30/16 09:52 Dose: 20 mg - Labs Labs: 09/29/16 10:18 09/29/16 10:18 PT 11.2 SECONDS (9.7-12.2) 09/14/16 16:33 INR 1.0 09/14/16 16:33 APTT 29 SECONDS (21-34) 09/14/16 16:33 Attending/Attestation - Attestation I have personally seen and examined this patient.: Yes I have fully participated in the care of the patient.: Yes I have reviewed all pertinent clinical information, including history, physical exam and plan: Yes Notes (Text): Patient seen, examined and case discussed with day-time resident. Patient seen at bedside. patient denies acute complaints. Per surgery, recommended for warm compresses and use separate site for the DVT ppx injections, no further intervention. Patient is pending dialysis placement. Assessment/Plan 1) Metabolic Acidosis, Chronic Kidney Disease POD#13 s/p LUE AVF creation * Nephrology (Dr. Orosco) on board * Vascular surgeon (Dr. Louis) on board- signed off, to FU in office for dressing removal in 2-3 weeks * Cont Dialysis TTS - * hepatitis panel neg * 09/17/16: Left arm brachial-basilic AV fistula creation * 09/14/16: placement of [id number]-right jugular vein * pending outpatient dialysis placement * Heparin 3700 units IVP TTS * Phoslo 1334mg PO CCTID * Zemplar 2mcg IV TTS 2) Anemia- stable * Chronic; anemia of chronic disease * Iron and % iron levels are normal; ferritin normal, hgb low, tibc low * Stool occult blood negative. reticulocyte count: normal * No prior GI workup; recommended f/u GI outpatient for screening baseline colonoscopy * Epocrit 10,000 IV T/Th/Sat * Ferrlecit 62.5mg IVP Qwkly (09/22-09/30) * No obvious signs of bleeding * Monitor 3) Hypertension * Hydralazine 100mg PO [id number] * Patient is currently HD T/Th/Sat schedule * monitor vital signs 4) Chronic Headache * Resolved * Neurology (Dr. Currie)- following * Elevated ESR on admission has normalized * On Prednisone taper to complete 10/03/16 * Brain MRI (09/15/16): no acute infarction and no intercranial hemorrhage; mild chronic white matter changes * Head MRA (09/15/16): no evidence of significant stenosis, aneurysm, no occlusion * Neck MRA (09/15/16): no evidence of signficiant occlusion or stenosis 5) Leukocytosis- resolving, likely due to steroid taper * FU labs Q4D * afebrile * Repeat cultures neg x 5D * Blood cx neg x 5D * Urine cxr neg * Procalc 0.7- low * off antibiotics 6) Prophylactic care * Pepcid 20mg PO daily for gi pxx * Restart low dose Lovenox 30mg subq day * Pending dialysis placement 7) Abdominal Pain * likely secondary to dvt ppx (injections) * on exam, patient has palpatory area over LLQ * Extremity nonvascular (09/28/16): left lower quadrant solid avascular mass corresponding findings * Per surgery, warm compresses and use separate site for dvt ppx injections
--- NOTE | 2016-09-30 16:14 | CP.PCM.PN ---
Subjective - Date & Time of Evaluation Date of Evaluation: 09/30/16 Time of Evaluation: 04:00 - Subjective Subjective: Comfortable in bed. No complaints Objective - Vital Signs/Intake and Output Vital Signs (last 24 hours): Temp Pulse Resp BP Pulse Ox 98.1 F 90 20 145/71 96 09/30/16 15:32 09/30/16 15:32 09/30/16 15:32 09/30/16 15:32 09/30/16 15:32 Intake and Output: 09/30/16 09/30/16 06:59 18:59 Intake Total 400 Balance 400 - Medications Medications: Current Medications Acetaminophen (Tylenol 325mg Tab) 650 mg PO Q6 PRN PRN Reason: Headache Last Admin: 09/29/16 17:41 Dose: 650 mg Calcium Acetate (Phoslo) 1,334 mg PO CCTID [facility] Last Admin: 09/30/16 12:02 Dose: 1,334 mg Famotidine (Pepcid) 20 mg PO DAILY [facility] Last Admin: 09/30/16 09:52 Dose: 20 mg Heparin Sodium (Porcine) (Heparin) 3,700 units IVP TTS [facility] Stop: 10/06/16 10:01 Last Admin: 09/29/16 10:20 Dose: 3,700 units Hydralazine HCl (Apresoline) 100 mg PO Q8H [facility] Last Admin: 09/30/16 14:27 Dose: 100 mg Paricalcitol (Zemplar) 2 mcg IV TTS [facility] Last Admin: 09/29/16 10:20 Dose: 2 mcg Prednisone (Prednisone Tab) 10 mg PO DAILY [facility] PRN Reason: Taper Stop: 10/03/16 15:28 Last Admin: 09/30/16 09:52 Dose: 20 mg - Labs Labs: 09/29/16 10:18 09/29/16 10:18 PT 11.2 SECONDS (9.7-12.2) 09/14/16 16:33 INR 1.0 09/14/16 16:33 APTT 29 SECONDS (21-34) 09/14/16 16:33 - Respiratory Exam Additional comments: Lungs clear - Cardiovascular Exam Cardiovascular Exam: REGULAR RHYTHM - Extremities Exam Additional comments: No edema + bruit over AVF. Resolving ecchymosis of Lt arm Assessment and Plan - Assessment and Plan (Free Text) Assessment: ESRD on HD HTn Leukocytosis etiology not clear. All cultures negative. No fever Plan: Stable on dialysis Continue HD per schedule
[2016-10-01 00:28] VITALS: O2SAT 98
--- NOTE | 2016-10-01 11:38 | CP.PCM.PN ---
Subjective - Date & Time of Evaluation Date of Evaluation: 10/01/16 Time of Evaluation: 11:30 - Subjective Subjective: Feels better. No headaches Objective - Vital Signs/Intake and Output Vital Signs (last 24 hours): Temp Pulse Resp BP Pulse Ox 98.3 F 74 17 158/82 H 98 10/01/16 07:00 10/01/16 08:00 10/01/16 07:00 10/01/16 07:00 10/01/16 07:00 - Medications Medications: Current Medications Acetaminophen (Tylenol 325mg Tab) 650 mg PO Q6 PRN PRN Reason: Headache Last Admin: 09/29/16 17:41 Dose: 650 mg Calcium Acetate (Phoslo) 1,334 mg PO CCTID [facility] Last Admin: 10/01/16 08:35 Dose: 1,334 mg Famotidine (Pepcid) 20 mg PO DAILY [facility] Last Admin: 10/01/16 09:30 Dose: 20 mg Heparin Sodium (Porcine) (Heparin) 3,700 units IVP TTS [facility] Stop: 10/06/16 10:01 Last Admin: 09/29/16 10:20 Dose: 3,700 units Hydralazine HCl (Apresoline) 100 mg PO Q8H [facility] Last Admin: 10/01/16 06:27 Dose: Not Given Paricalcitol (Zemplar) 2 mcg IV TTS [facility] Last Admin: 09/29/16 10:20 Dose: 2 mcg Prednisone (Prednisone Tab) 10 mg PO DAILY [facility] PRN Reason: Taper Stop: 10/03/16 15:28 Last Admin: 10/01/16 09:30 Dose: 10 mg - Labs Labs: 09/29/16 10:18 09/29/16 10:18 PT 11.2 SECONDS (9.7-12.2) 09/14/16 16:33 INR 1.0 09/14/16 16:33 APTT 29 SECONDS (21-34) 09/14/16 16:33 - Respiratory Exam Additional comments: Lungs clear - Cardiovascular Exam Cardiovascular Exam: REGULAR RHYTHM - Extremities Exam Additional comments: No edema + bruit over AVF Assessment and Plan - Assessment and Plan (Free Text) Assessment: ESRD on HD HTN controlled Anemia Plan: Stable on dialysis. Continue HD per schedule Hb improving. Epogen per protocol
--- NOTE | 2016-10-01 13:37 | CP.PCM.DIS ---
<Edilma Hyde - Last Filed: 10/01/16 13:38> Provider - Provider Date of Admission: 09/14/16 14:18 Attending physician: Erna Calloway DO Primary care physician: [facility] Consults: vascular surgery -[place] Nephro- med Neuro- [place] Time Spent in preparation of Discharge (in minutes): 60 Hospital Course - Lab Results Lab Results: Micro Results 09/20/16 10:30 Blood-Venous Blood Culture - Final NO GROWTH AFTER 5 DAYS 09/20/16 10:30 Blood-Venous Gram Stain - Final TEST NOT PERFORMED 09/20/16 10:00 Blood-Venous Blood Culture - Final NO GROWTH AFTER 5 DAYS 09/20/16 10:00 Blood-Venous Gram Stain - Final TEST NOT PERFORMED 09/17/16 11:10 Blood Blood Culture - Final NO GROWTH AFTER 5 DAYS 09/17/16 11:10 Blood Gram Stain - Final TEST NOT PERFORMED 09/17/16 11:40 Blood Blood Culture - Final NO GROWTH AFTER 5 DAYS 09/17/16 11:40 Blood Gram Stain - Final TEST NOT PERFORMED 09/20/16 13:34 Urine Urine Culture - Final No Growth (<1,000 CFU/ML) 09/18/16 15:04 Urine Urine Culture - Final No Growth (<1,000 CFU/ML) Most Recent Lab Values WBC 15.5 K/uL (4.8-10.8) H 09/29/16 10:18 RBC 4.13 Mil/uL (3.80-5.20) 09/29/16 10:18 Hgb 11.6 g/dL (11.0-16.0) 09/29/16 10:18 Hct 36.4 % (34.0-47.0) 09/29/16 10:18 MCV 88.0 fL (81.0-99.0) 09/29/16 10:18 MCH 28.1 pg (27.0-31.0) 09/29/16 10:18 MCHC 32.0 g/dL (33.0-37.0) L 09/29/16 10:18 RDW 19.8 % (11.5-14.5) H 09/29/16 10:18 Plt Count 148 K/uL (130-400) 09/29/16 10:18 MPV 7.9 fL (7.2-11.7) 09/29/16 10:18 Neut % (Auto) 82.9 % (50.0-75.0) H 09/29/16 10:18 Lymph % (Auto) 10.6 % (20.0-40.0) L 09/29/16 10:18 [place] % (Auto) 6.2 % (0.0-10.0) 09/29/16 10:18 Eos % (Auto) 0.1 % (0.0-4.0) 09/29/16 10:18 Baso % (Auto) 0.2 % (0.0-2.0) 09/29/16 10:18 Neut # 12.8 K/uL (1.8-7.0) H 09/29/16 10:18 Lymph # 1.6 K/uL (1.0-4.3) 09/29/16 10:18 [place] # 1.0 K/uL (0.0-0.8) H 09/29/16 10:18 Eos # 0.0 K/uL (0.0-0.7) 09/29/16 10:18 Baso # 0.0 K/uL (0.0-0.2) 09/29/16 10:18 Neutrophils % (Manual) 89 % (50-75) H 09/28/16 06:40 Band Neutrophils % 2 % (0-2) 09/21/16 06:46 Lymphocytes % (Manual) 6 % (20-40) L 09/28/16 06:40 Monocytes % (Manual) 4 % (0-10) 09/28/16 06:40 Metamyelocytes % 1 % (0-0) H 09/21/16 06:46 Myelocytes % 1 % (0-0) H 09/28/16 06:40 Nucleated RBC % 1 % (0-0) H 09/20/16 06:14 Platelet Estimate Normal (NORMAL) 09/28/16 06:40 Polychromasia Slight 09/28/16 06:40 Hypochromasia (manual) Slight 09/28/16 06:40 Poikilocytosis (manual Slight 09/21/16 06:46 Anisocytosis (manual) Slight 09/28/16 06:40 Microcytosis (manual) Slight 09/28/16 06:40 Tear Drop Cells Slight 09/28/16 06:40 Ovalocytes Slight 09/20/16 06:14 [place] Cells Slight 09/28/16 06:40 Schistocytes Slight 09/28/16 06:40 ESR 4 mm/hr (0-20) 09/24/16 07:51 Retic Count 2.1 % (0.5-1.5) H 09/15/16 19:40 PT 11.2 SECONDS (9.7-12.2) 09/14/16 16:33 INR 1.0 09/14/16 16:33 APTT 29 SECONDS (21-34) 09/14/16 16:33 Sodium 132 mmol/L (132-148) 09/29/16 10:18 Potassium 4.9 mmol/L (3.6-5.2) 09/29/16 10:18 Chloride 93 mmol/L (98-107) L 09/29/16 10:18 Carbon Dioxide 21 mmol/L (22-30) L 09/29/16 10:18 Anion Gap 23 (10-20) H 09/29/16 10:18 BUN 87 mg/dL (7-17) H 09/29/16 10:18 Creatinine 9.2 MG/DL (0.7-1.2) H* D 09/29/16 10:18 Est GFR ( Amer) 5 09/29/16 10:18 Est GFR (Non-Af Amer) 4 09/29/16 10:18 Random Glucose 120 mg/dL (65-105) H 09/29/16 10:18 Hemoglobin A1c 5.6 % (4.2-6.5) 09/15/16 07:04 Calcium 8.9 mg/dl (8.6-10.4) 09/29/16 10:18 Phosphorus 4.7 mg/dL (2.5-4.5) H 09/29/16 10:18 Magnesium 2.5 mg/dL (1.6-2.3) H 09/29/16 10:18 Iron 79 ug/dL (37-170) 09/14/16 19:57 TIBC 226 ug/dL (250-450) L 09/14/16 19:57 % Saturation 35 (20-55) 09/14/16 19:57 Ferritin 201.0 ng/mL 09/14/16 19:57 Total Bilirubin 0.4 mg/dL (0.2-1.3) 09/29/16 10:18 AST 16 U/L (14-36) 09/29/16 10:18 ALT 10 U/L (9-52) 09/29/16 10:18 Alkaline Phosphatase 62 U/L (38-126) 09/29/16 10:18 C-React Prot High Sens 14.04 mg/L (1.00-3.00) H 09/21/16 06:46 Total Protein 5.8 g/dL (6.3-8.3) L 09/29/16 10:18 Albumin 3.4 g/dL (3.5-5.0) L 09/29/16 10:18 Globulin 2.4 gm/dL (2.2-3.9) 09/29/16 10:18 Albumin/Globulin Ratio 1.4 (1.0-2.1) 09/29/16 10:18 Homocysteine 14.0 umol/L (4.7-12.6) H 09/15/16 07:04 Procalcitonin 0.70 NG/ML (0.19-0.49) H 09/20/16 10:43 Free T4 1.26 ng/dL (0.78-2.19) 09/15/16 07:04 TSH 3rd Generation 3.65 mIU/L (0.46-4.68) 09/15/16 07:04 PTH Intact Whole Molec 563 pg/mL (14-64) H 09/16/16 14:21 Urine Color Yellow (YELLOW) 09/20/16 12:40 Urine Clarity Hazy (Clear) 09/20/16 12:40 Urine pH 8.0 (5.0-8.0) 09/20/16 12:40 Ur Specific [place]aft 1.007 (1.003-1.030) 09/20/16 12:40 Urine Protein 2+ mg/dL (NEGATIVE) H 09/20/16 12:40 Urine Glucose (UA) 3+ mg/dL (Normal) H 09/20/16 12:40 Urine Ketones Negative mg/dL (NEGATIVE) 09/20/16 12:40 Urine Blood Negative (NEGATIVE) 09/20/16 12:40 Urine Nitrate Negative (NEGATIVE) 09/20/16 12:40 Urine Bilirubin Negative (NEGATIVE) 09/20/16 12:40 Urine Urobilinogen Normal mg/dL (0.2-1.0) 09/20/16 12:40 Ur Leukocyte Esterase 2+ Armando/uL (Negative) H 09/20/16 12:40 Urine WBC (Auto) 17 /hpf (0-5) H 09/20/16 12:40 Urine RBC (Auto) 3 /hpf (0-3) 09/20/16 12:40 Ur Squamous Epith Cells 6 /hpf (0-5) H 09/20/16 12:40 Urine Bacteria Occ (<OCC) H 09/20/16 12:40 Stool Occult Blood Negative (NEGATIVE) 09/16/16 14:43 BENJAMÍN 6 Profile Positive (NEGATIVE) H 09/25/16 14:35 BENJAMÍN Titer 1:40 H 09/25/16 14:35 BENJAMÍN Pattern Speckled H 09/25/16 14:35 SS-A Antibody <1.0 AI (<1.0) 09/25/16 14:35 SS-B Ab Interp Negative (Negative) 09/25/16 14:35 SS-B Antibody <1.0 AI (<1.0) 09/25/16 14:35 SS-B Ab Interp Negative (Negative) 09/25/16 14:35 Double Strand DNA Ab 3 IU/mL (()) 09/25/16 14:35 RPR Nonreactive (NONREACTIVE) 09/15/16 07:04 Hepatitis A IgM Ab Negative (NEGATIVE) 09/14/16 19:57 Hep Bs Antigen Negative (NEGATIVE) 09/14/16 19:57 Hep Bs Antibody Negative (NEGATIVE) 09/16/16 07:19 Hep B Core IgM Ab Negative (NEGATIVE) 09/14/16 19:57 Hepatitis C Antibody Negative (NEGATIVE) 09/14/16 19:57 Blood Type O POSITIVE 09/17/16 06:53 Antibody Screen Negative 09/17/16 06:53 - Hospital Course Hospital Course: On hospital admission 56 yo Yi-speaking F w/PMH sig for kidney problems, recurrent headache admitted to hospital for headache x 1 day. Headache began approx 1 week ago, progressively worsening, U/L, and pulsating. Associated with pain around R evangelical, R eye pain, blurring of vision, nausea and dizziness. Tried Tylenol with/out relief. Aggravating factors include: light, movement. In ED - CT of head- negative, worked up sig for ESR of 65. Given Benadryl and Reglan. Solumedrol not given. BUN of 116 and Creatinine of 14.7 - pt admitted for emergent HD catheter placement & Hemodialysis. On hospital course Pt admitted to hospital for headache R/O temporal arteritis, uremia due to renal failure. Pt seen/evaluated by nephrology with recommendations for emergent dialysis due to acute uremia in setting of ESRD. Pt see/evaluated by vascular surgery with placement of HD catheter into Right chest wall for emergent dialysis and then subsequent creation of AVF in LUE on hospital day # 3. Pt was placed on a dialysis schedule with nephrology following, pt initially with anemia due to chronic kidney disease, given procrit with subsequent increase in hemoglobin. During course of hospitalization, pt with mild changes in electrolytes - addressed with dialysis. Pt seen/evaluated by neurology- recommendations for imaging made. Neurology evaluation less likely for temporal arteritis, pt was started on steroids, tapered off during course of hospitalization. Headache improved over course of hospitalization. CT brain was found to be negative. Neck MRA w/Slightly limited motion degraded study. No evidence of occlusion or significant stenosis. Head MRA w/No evidence of occlusion significant stenosis or large aneurysm nor vascular malformation. No evidence to suggest vasculitis in the larger visualized segments. CT brain w/o cont w/findings of No acute intracranial hemorrhage or acute infarct. Mild chronic white matter ischemic changes. Pt with HTN during hospital stay, medical management adjusted with good response to Hydralazine during inpatient stay. Pt developed Left lower quadrant tenderness on hospital day #15 in area where subcutaneous heparin was injected - heparin injections were discontinued, ultrasound of the area revealed an avascular mass, surgery was re-consulted with recommendations for warm compresses to the area and to discontinue heparin injections to the area. Pt medically stable, ready for discharge with placement at dialysis center secured. On hospital discharge Patient medically stable for discharge as per Dr. Calloway. Patient is to follow up with the [facility] - within 1 week after discharge. Patient is to follow up with Dr. Louis for fistula evaluation within 1-2 weeks after hospitalization. Please call Dr. Orosco's office to establish care, she will be your kidney doctor. Please attend dialysis as scheduled with the outpatient dialysis center called [facility] in [place] on [phone], please call them at to confirm your dialysis appointments/schedule. Please return to hospital if you have a recurrence of symptoms. Diagnoses ESRD on HD, HTN, chronic headache, anemia of chronic disease, nausea Medications hydrALAZINE [Apresoline] 100 mg PO Q8H #90 tab Calcium Acetate [Phoslo] 667 mg PO QDCC #30 capsule predniSONE [predniSONE Tab] 10 mg PO DAILY #2 tab This is a summary of hospital course, please see EMR for further details - Date & Time of H&P Date of H&P: 09/14/16 Time of H&P: 16:16 Discharge Exam - Head Exam Head Exam: ATRAUMATIC, NORMAL INSPECTION, NORMOCEPHALIC - Eye Exam Eye Exam: EOMI, Normal appearance, PERRL Pupil Exam: NORMAL ACCOMODATION, PERRL - ENT Exam ENT Exam: Mucous Membranes Dry, Normal Exam - Neck Exam Neck exam: Full Rom, Normal Inspection - Respiratory Exam Respiratory Exam: Clear to PA & Lateral, NORMAL BREATHING PATTERN, UNREMARKABLE. absent: Chest Wall Tenderness - Cardiovascular Exam Cardiovascular Exam: REGULAR RHYTHM - GI/Abdominal Exam GI & Abdominal Exam: Normal Bowel Sounds, Soft, Tenderness (mild, over LLQ ecchymoses), Unremarkable - Extremities Exam Extremities exam: full ROM, tenderness (over LUE AVF site with ecchymoses ) - Back Exam Back exam: FULL ROM, NORMAL INSPECTION. absent: paraspinal tenderness, tenderness - Neurological Exam Neurological exam: Alert, CN II-XII Intact, Oriented x3 - Psychiatric Exam Psychiatric exam: Normal Affect, Normal Mood - Skin Skin Exam: Dry, Intact, Warm Additional comments: LUE with ecchymoses over medial aspect Discharge Plan - Discharge Medications Prescriptions: hydrALAZINE [Apresoline] 100 mg PO Q8H #90 tab Calcium Acetate [Phoslo] 667 mg PO QDCC #30 capsule predniSONE [predniSONE Tab] 10 mg PO DAILY #2 tab - Follow Up Plan Condition: STABLE Disposition: HOME/ ROUTINE Instructions: Prednisone (By mouth), Hydralazine (By mouth), Calcium Acetate ( By mouth), Renal Failure Diet (DC), Dialysis Diet (DC), Acute Headache (DC), Hemodialysis for Acute Renal Failure (DC), End Stage Kidney Disease (DC), Perma- cath Placement (DC) Additional Instructions: Patient medically stable for discharge as per Dr. Calloway. Patient is to follow up with the [facility] - within 1 week after discharge. Patient is to follow up with Dr. Louis for fistula evaluation within 1-2 weeks after hospitalization. Please call Dr. Orosco's office to establish care, she will be your kidney doctor. Please attend dialysis as scheduled with the outpatient dialysis center called [facility] in [place] on [phone], please call them at [phone] to confirm your dialysis appointments/scheduled appointments for 10am every Wednesday, Wednesday, and Wednesday. Tomorrow is your first appointment, please arrive at the dialysis center by 9:30am. Please return to hospital if you have a recurrence of symptoms. Referrals: [facility] [Outside] Ness Orosco MD [Staff Provider] - Anthony Louis Jr., MD [Staff Provider] - <Erna Calloway V - Last Filed: 10/01/16 17:51> Provider - Provider Date of Admission: 09/14/16 14:18 Attending physician: Erna Calloway, Hospital Course - Lab Results Lab Results: Micro Results 09/20/16 10:30 Blood-Venous Blood Culture - Final NO GROWTH AFTER 5 DAYS 09/20/16 10:30 Blood-Venous Gram Stain - Final TEST NOT PERFORMED 09/20/16 10:00 Blood-Venous Blood Culture - Final NO GROWTH AFTER 5 DAYS 09/20/16 10:00 Blood-Venous Gram Stain - Final TEST NOT PERFORMED 09/17/16 11:10 Blood Blood Culture - Final NO GROWTH AFTER 5 DAYS 09/17/16 11:10 Blood Gram Stain - Final TEST NOT PERFORMED 09/17/16 11:40 Blood Blood Culture - Final NO GROWTH AFTER 5 DAYS 09/17/16 11:40 Blood Gram Stain - Final TEST NOT PERFORMED 09/20/16 13:34 Urine Urine Culture - Final No Growth (<1,000 CFU/ML) 09/18/16 15:04 Urine Urine Culture - Final No Growth (<1,000 CFU/ML) Most Recent Lab Values WBC 15.5 K/uL (4.8-10.8) H 09/29/16 10:18 RBC 4.13 Mil/uL (3.80-5.20) 09/29/16 10:18 Hgb 11.6 g/dL (11.0-16.0) 09/29/16 10:18 Hct 36.4 % (34.0-47.0) 09/29/16 10:18 MCV 88.0 fL (81.0-99.0) 09/29/16 10:18 MCH 28.1 pg (27.0-31.0) 09/29/16 10:18 MCHC 32.0 g/dL (33.0-37.0) L 09/29/16 10:18 RDW 19.8 % (11.5-14.5) H 09/29/16 10:18 Plt Count 148 K/uL (130-400) 09/29/16 10:18 MPV 7.9 fL (7.2-11.7) 09/29/16 10:18 Neut % (Auto) 82.9 % (50.0-75.0) H 09/29/16 10:18 Lymph % (Auto) 10.6 % (20.0-40.0) L 09/29/16 10:18 [place] % (Auto) 6.2 % (0.0-10.0) 09/29/16 10:18 Eos % (Auto) 0.1 % (0.0-4.0) 09/29/16 10:18 Baso % (Auto) 0.2 % (0.0-2.0) 09/29/16 10:18 Neut # 12.8 K/uL (1.8-7.0) H 09/29/16 10:18 Lymph # 1.6 K/uL (1.0-4.3) 09/29/16 10:18 [place] # 1.0 K/uL (0.0-0.8) H 09/29/16 10:18 Eos # 0.0 K/uL (0.0-0.7) 09/29/16 10:18 Baso # 0.0 K/uL (0.0-0.2) 09/29/16 10:18 Neutrophils % (Manual) 89 % (50-75) H 09/28/16 06:40 Band Neutrophils % 2 % (0-2) 09/21/16 06:46 Lymphocytes % (Manual) 6 % (20-40) L 09/28/16 06:40 Monocytes % (Manual) 4 % (0-10) 09/28/16 06:40 Metamyelocytes % 1 % (0-0) H 09/21/16 06:46 Myelocytes % 1 % (0-0) H 09/28/16 06:40 Nucleated RBC % 1 % (0-0) H 09/20/16 06:14 Platelet Estimate Normal (NORMAL) 09/28/16 06:40 Polychromasia Slight 09/28/16 06:40 Hypochromasia (manual) Slight 09/28/16 06:40 Poikilocytosis (manual Slight 09/21/16 06:46 Anisocytosis (manual) Slight 09/28/16 06:40 Microcytosis (manual) Slight 09/28/16 06:40 Tear Drop Cells Slight 09/28/16 06:40 Ovalocytes Slight 09/20/16 06:14 [place] Cells Slight 09/28/16 06:40 Schistocytes Slight 09/28/16 06:40 ESR 4 mm/hr (0-20) 09/24/16 07:51 Retic Count 2.1 % (0.5-1.5) H 09/15/16 19:40 PT 11.2 SECONDS (9.7-12.2) 09/14/16 16:33 INR 1.0 09/14/16 16:33 APTT 29 SECONDS (21-34) 09/14/16 16:33 Sodium 132 mmol/L (132-148) 09/29/16 10:18 Potassium 4.9 mmol/L (3.6-5.2) 09/29/16 10:18 Chloride 93 mmol/L (98-107) L 09/29/16 10:18 Carbon Dioxide 21 mmol/L (22-30) L 09/29/16 10:18 Anion Gap 23 (10-20) H 09/29/16 10:18 BUN 87 mg/dL (7-17) H 09/29/16 10:18 Creatinine 9.2 MG/DL (0.7-1.2) H* D 09/29/16 10:18 Est GFR ( Amer) 5 09/29/16 10:18 Est GFR (Non-Af Amer) 4 09/29/16 10:18 Random Glucose 120 mg/dL (65-105) H 09/29/16 10:18 Hemoglobin A1c 5.6 % (4.2-6.5) 09/15/16 07:04 Calcium 8.9 mg/dl (8.6-10.4) 09/29/16 10:18 Phosphorus 4.7 mg/dL (2.5-4.5) H 09/29/16 10:18 Magnesium 2.5 mg/dL (1.6-2.3) H 09/29/16 10:18 Iron 79 ug/dL (37-170) 09/14/16 19:57 TIBC 226 ug/dL (250-450) L 09/14/16 19:57 % Saturation 35 (20-55) 09/14/16 19:57 Ferritin 201.0 ng/mL 09/14/16 19:57 Total Bilirubin 0.4 mg/dL (0.2-1.3) 09/29/16 10:18 AST 16 U/L (14-36) 09/29/16 10:18 ALT 10 U/L (9-52) 09/29/16 10:18 Alkaline Phosphatase 62 U/L (38-126) 09/29/16 10:18 C-React Prot High Sens 14.04 mg/L (1.00-3.00) H 09/21/16 06:46 Total Protein 5.8 g/dL (6.3-8.3) L 09/29/16 10:18 Albumin 3.4 g/dL (3.5-5.0) L 09/29/16 10:18 Globulin 2.4 gm/dL (2.2-3.9) 09/29/16 10:18 Albumin/Globulin Ratio 1.4 (1.0-2.1) 09/29/16 10:18 Homocysteine 14.0 umol/L (4.7-12.6) H 09/15/16 07:04 Procalcitonin 0.70 NG/ML (0.19-0.49) H 09/20/16 10:43 Free T4 1.26 ng/dL (0.78-2.19) 09/15/16 07:04 TSH 3rd Generation 3.65 mIU/L (0.46-4.68) 09/15/16 07:04 PTH Intact Whole Molec 563 pg/mL (14-64) H 09/16/16 14:21 Urine Color Yellow (YELLOW) 09/20/16 12:40 Urine Clarity Hazy (Clear) 09/20/16 12:40 Urine pH 8.0 (5.0-8.0) 09/20/16 12:40 Ur Specific [place] 1.007 (1.003-1.030) 09/20/16 12:40 Urine Protein 2+ mg/dL (NEGATIVE) H 09/20/16 12:40 Urine Glucose (UA) 3+ mg/dL (Normal) H 09/20/16 12:40 Urine Ketones Negative mg/dL (NEGATIVE) 09/20/16 12:40 Urine Blood Negative (NEGATIVE) 09/20/16 12:40 Urine Nitrate Negative (NEGATIVE) 09/20/16 12:40 Urine Bilirubin Negative (NEGATIVE) 09/20/16 12:40 Urine Urobilinogen Normal mg/dL (0.2-1.0) 09/20/16 12:40 Ur Leukocyte Esterase 2+ Armando/uL (Negative) H 09/20/16 12:40 Urine WBC (Auto) 17 /hpf (0-5) H 09/20/16 12:40 Urine RBC (Auto) 3 /hpf (0-3) 09/20/16 12:40 Ur Squamous Epith Cells 6 /hpf (0-5) H 09/20/16 12:40 Urine Bacteria Occ (<OCC) H 09/20/16 12:40 Stool Occult Blood Negative (NEGATIVE) 09/16/16 14:43 BENJAMÍN 6 Profile Positive (NEGATIVE) H 09/25/16 14:35 BENJAMÍN Titer 1:40 H 09/25/16 14:35 BENJAMÍN Pattern Speckled H 09/25/16 14:35 SS-A Antibody <1.0 AI (<1.0) 09/25/16 14:35 SS-B Ab Interp Negative (Negative) 09/25/16 14:35 SS-B Antibody <1.0 AI (<1.0) 09/25/16 14:35 SS-B Ab Interp Negative (Negative) 09/25/16 14:35 Double Strand DNA Ab 3 IU/mL (()) 09/25/16 14:35 RPR Nonreactive (NONREACTIVE) 09/15/16 07:04 Hepatitis A IgM Ab Negative (NEGATIVE) 09/14/16 19:57 Hep Bs Antigen Negative (NEGATIVE) 09/14/16 19:57 Hep Bs Antibody Negative (NEGATIVE) 09/16/16 07:19 Hep B Core IgM Ab Negative (NEGATIVE) 09/14/16 19:57 Hepatitis C Antibody Negative (NEGATIVE) 09/14/16 19:57 Blood Type O POSITIVE 09/17/16 06:53 Antibody Screen Negative 09/17/16 06:53 Attending/Attestation - Attestation I have personally seen and examined this patient.: Yes I have fully participated in the care of the patient.: Yes I have reviewed all pertinent clinical information, including history, physical exam and plan: Yes Notes (Text): Patient seen, examined and case discussed with day-time resident. Patient seen at bedside. patient denies acute complaints. Patient stable for discharge today. Patient setup for [facility] dialysis center under Dr. Orosco (nephrology). Patient to follow-up with Dr. Louis in 1-2 weeks. Patient to have sutures removed today by surgery before discharge today and follow-up with vascular surgery to determine future use of AV fistula for dialysis and removal of perm a cath at appropriate time. Patient to establish care at the [facility] ([phone]) for follow-up hospitalization. Patient to follow-up with nephrology and vascular surgery. Prescriptions: 1) Phoslo 1334mg PO CCTID (90/no refills) 2) Hydralazine 100mg PO [id number] (90/no refills) 3) Prednsione 10mg PO daily (2/no refills) This is summary of patient's hospitalization. Please see EMR for further details. Assessment/Plan 1) Metabolic Acidosis, Chronic Kidney Disease POD#14 s/p LUE AVF creation * Nephrology (Dr. Orosco) on board * Vascular surgeon (Dr. Louis) on board- signed off, to FU in office for dressing removal in 1-2 weeks * Cont Dialysis TTS - * hepatitis panel neg * 09/17/16: Left arm brachial-basilic AV fistula creation * 09/14/16: placement of [id number]-right jugular vein * pending outpatient dialysis placement * Heparin 3700 units IVP TTS * Phoslo 1334mg PO CCTID * Zemplar 2mcg IV TTS 2) Anemia- stable * Chronic; anemia of chronic disease * Iron and % iron levels are normal; ferritin normal, hgb low, tibc low * Stool occult blood negative. reticulocyte count: normal * No prior GI workup; recommended f/u GI outpatient for screening baseline colonoscopy * Epocrit 10,000 IV T/Th/Sat * Ferrlecit 62.5mg IVP Qwkly (09/22-09/30) * No obvious signs of bleeding * Monitor 3) Hypertension * Hydralazine 100mg PO [id number] * Patient is currently HD T/Th/Sat schedule * monitor vital signs 4) Chronic Headache * Resolved * Neurology (Dr. Currie)- following * Elevated ESR on admission has normalized * On Prednisone taper to complete 10/03/16 * Brain MRI (09/15/16): no acute infarction and no intercranial hemorrhage; mild chronic white matter changes * Head MRA (09/15/16): no evidence of significant stenosis, aneurysm, no occlusion * Neck MRA (09/15/16): no evidence of signficiant occlusion or stenosis 5) Leukocytosis- resolving, likely due to steroid taper * afebrile * Repeat cultures neg x 5D * Blood cx neg x 5D * Urine cxr neg * Procalc 0.7- low * off antibiotics 6) Prophylactic care * Pepcid 20mg PO daily for gi pxx * Restart low dose Lovenox 30mg subq day * Dialysis placement secured; help appreciated by case and social work 7) Abdominal Pain * likely secondary to dvt ppx (injections) * on exam, patient has palpatory area over LLQ * Extremity nonvascular (09/28/16): left lower quadrant solid avascular mass corresponding findings * Per surgery, warm compresses and use separate site for dvt ppx injection
[2016-10-01] MEDS: Paricalcitol 2 mcg/ml Inj IV SCH (17:14)
[2016-10-01 18:01] VITALS: RESP 18; TEMP 97.6
[2016-10-01 18:32] VITALS: BP 159/86; PULSE 84
== END 2016-10-01 18:05 | disposition home or self-care (01) | DRG 567 ==
LOC: C.ER 10:53 → C.9E 14:18 → C.6T 18:01
PROVIDERS: ADMIT Internal Medicine; ATTEND Hospitalist
PROC: 05HM33Z Insertion of Infusion Device into Right Internal Jugular Vein, Percutaneous Approach (ICD-10-PCS; 2016-09-14)
PROC: B513ZZA Fluoroscopy of Right Jugular Veins, Guidance (ICD-10-PCS; 2016-09-14)
PROC: 5A1D60Z (ICD-10-PCS; principal; 2016-09-14 16:57)
PROC: 03180ZD Bypass Left Brachial Artery to Upper Arm Vein, Open Approach (ICD-10-PCS; 2016-09-17)
DX: I12.0 Hypertensive chronic kidney disease with stage 5 chronic kidney disease or end stage renal disease (principal); N17.9 Acute kidney failure, unspecified; N25.81 Secondary hyperparathyroidism of renal origin; E87.2 Acidosis; N18.6 End stage renal disease; E87.5 Hyperkalemia; D63.1 Anemia in chronic kidney disease; E78.00 Pure hypercholesterolemia, unspecified; G43.909 Migraine, unspecified, not intractable, without status migrainosus; R19.04 Left lower quadrant abdominal swelling, mass and lump

== ENCOUNTER 2016-10-19 15:33 | Emergency (ER) | payer MEDICAID, OTHER ==
[2016-10-19 15:58] VITALS: BP 121/73; PULSE 114; RESP 17; TEMP 97.8; O2SAT 98
--- NOTE | 2016-10-19 17:26 | C.PDOC ---
History Of Present Illness Pt developed a "black bump" on her dialysis fistula and was instructed at dialysis to come to the ER. The fistula was placed by Dr. Louis 3 weeks ago and is not being used for dialysis yet. Time Seen by Provider: 10/19/16 16:59 Chief Complaint (Nursing): Abnormal Skin Integrity History Per: Patient, Family, County Or City Auditor History/Exam Limitations: language barrier Onset/Duration Of Symptoms: Days (1) Current Symptoms Are (Timing): Still Present Location Of Injury: Left: Arm Quality Of Symptoms: denies: Painful, Draining Severity: Mild Additional History Per: Prior Records Past Medical History Reviewed: Historical Data, Nursing Documentation, Vital Signs Vital Signs: Last Vital Signs Temp 97.8 F 10/19/16 15:55 Pulse 114 H 10/19/16 15:55 Resp 17 10/19/16 15:55 BP 121/73 10/19/16 15:55 Pulse Ox 98 10/19/16 15:55 - Medical History PMH: Gastritis, HTN, Hypercholesterolemia (uncontrolled ), Migraine, End Stage Renal Disease - [facility] Procedures APPLICATION OF SPLINT (09/16/14) BYPASS LEFT BRACHIAL ARTERY TO UPPER ARM VEIN, OPEN APPROACH (09/14/16) FLUOROSCOPY OF RIGHT JUGULAR VEINS, GUIDANCE (09/14/16) INSERT INFUSION DEV IN R INT JUGULAR VEIN, PERC (09/14/16) PERFORMANCE OF URINARY FILTRATION, MULTIPLE (09/14/16) Family History: States: Unknown Family Hx - Social History Hx Tobacco Use: No Hx Alcohol Use: No Hx Substance Use: No - Immunization History Hx Tetanus Toxoid Vaccination: Yes Hx Influenza Vaccination: Yes Hx Pneumococcal Vaccination: No Review Of Systems Except As Marked, All Systems Reviewed And Found Negative. Constitutional: Negative for: Fever, Weakness Cardiovascular: Negative for: Chest Pain Respiratory: Negative for: Shortness of Breath Gastrointestinal: Negative for: Vomiting, Abdominal Pain Musculoskeletal: Negative for: Neck Pain, Arm Pain Neurological: Negative for: Weakness, Numbness, Seizures, Altered Mental Status Physical Exam - Physical Exam Appears: Non-toxic, No Acute Distress Skin: Normal Color, Warm, Dry Head: Atraumatic, Normacephalic Eye(s): bilateral: PERRL, EOMI Neck: Normal ROM, Supple Cardiovascular: Rhythm Regular Respiratory: Normal Breath Sounds, No Accessory Muscle Use Gastrointestinal/Abdominal: Soft, No Tenderness Extremity: Normal ROM, Capillary Refill (wnl), Other (2 small dark lesions that appear like small blisters on dialysis fistula. ) Pulses: Left Radial: Normal Neurological/Psych: Oriented x3, Normal Motor, Normal Sensation ED Course And Treatment O2 Sat by Pulse Oximetry: 98 Pulse Ox Interpretation: Normal Disposition Discussed With DrRosie: Anthony Louis Jr. Comment: He states pt can be discharged home and he wants to see pt tomorrow in his office. Doctor Will See Patient In The: Office Counseled Patient/Family Regarding: Diagnosis, Need For Followup - Disposition Referrals: Anthony Louis Jr., MD [Staff Provider] - Disposition: HOME/ ROUTINE Disposition Time: 17:28 Condition: STABLE Additional Instructions: Follow up with Dr. Louis tomorrow for further evaluation and treatment. Return to the ER if you develop bleeding, drainage, worsening of symptoms or if you have any other concerns. Forms: Gen Discharge Inst Peruvian, General Discharge Instructions - Clinical Impression Clinical Impression: Other complication of arteriovenous dialysis fistula
== END 2016-10-19 17:35 | disposition home or self-care (01) ==
LOC: C.ER 15:33
DX: T82.898A Other specified complication of vascular prosthetic devices, implants and grafts, initial encounter (principal); I12.0 Hypertensive chronic kidney disease with stage 5 chronic kidney disease or end stage renal disease; N18.6 End stage renal disease; Z99.2 Dependence on renal dialysis

== ENCOUNTER 2016-11-25 07:43 | Day surgery (SDC) | payer OTHER ==
[~2016-11-25 07:43] MED LIST: ceFAZolin IV 1 gm in Dextrose 1 GM/50 ML BAG IVPB ONE
[2016-11-25] MEDS ORDERED: Midazolam 2 MG/2 ML VIAL ONE (08:42)
[2016-11-25] MEDS ORDERED: Propofol 10 mg/ml Inj (20 ML) ONE (08:42)
[2016-11-25] MEDS ORDERED: Sodium Chloride 0.9% 1,000 ML IV ONE (08:45)
[2016-11-25] MEDS ORDERED: Lactated Ringer's 1,000 ML IV ONE (08:45)
[2016-11-25] MEDS ORDERED: Succinylcholine Chloride 20 mg/ml Syr (5 ml) IV ONE (08:46)
[2016-11-25] MEDS ORDERED: Rocuronium 10 mg/ml (5 ml) ONE (08:46)
[2016-11-25] MEDS ORDERED: Lidocaine Hydrochloride 5 ML INJ ONE (08:46)
[2016-11-25] MEDS ORDERED: HEPARIN-NS 5,000 UNITS/500 ML 5,000 UNIT/500 ML BAG IV ONE (09:39)
[2016-11-25] MEDS ORDERED: Neostigmine Methylsulfate 3mg/3ml Syringe IV ONE (09:58)
--- NOTE | 2016-11-25 10:13 | PCM.SURG1 ---
Surgeon's Initial Post Op Note - Surgeon's Notes Surgeon: Missy Flight Engineer Manager: Sloane Maurice Pre-Operative Diagnosis: Renal failure Operative Findings: AVF left arm Post-Operative Diagnosis: Renal failure Operation Performed: AVF revision, left arm, Transposition of vein Specimen/Specimens Removed: n/a Estimated Blood Loss: EBL {In ML}: 25 Date of Surgery/Procedure: 11/25/16 Time of Surgery/Procedure: 09:00
[2016-11-25] MEDS ORDERED: HYDROmorphone 0.5 mg/0.5 ml ISec IVP PRN (10:15)
--- NOTE | 2016-11-25 10:29 | OP ---
PROCEDURE DATE: 11/25/2016 PREOPERATIVE DIAGNOSIS: Immature fistula, left arm. PROCEDURE CARRIED OUT: Revision of arteriovenous fistula, left arm, with creation of basilic vein tr ansposition. SURGEON: Anthony Louis Jr., MD MANAGER CUSTOMER: ____, resident. ANESTHESIOLOGIST: Chance Webber CRNA. ANESTHESIA: General anesthesia. POSTOPERATIVE DIAGNOSES: A middle-aged woman with renal insufficiency, excellent fistula to left arm . OPERATIVE FINDINGS: One vein was 8-10 mm in diameter; however, it was unfortunately too deep to the skin. PROCEDURE: The patient was given general anesthesia and intravenous antibiotics. Using ultrasound m arking, the vein was dissected free and marked on the skin. We then completed the dissection, ligate d all tributaries, and brought the vein directly under the skin. After the subcutaneous tissues were closed, the skin was closed on top of the fistula. This was a very well sized, very good flowing fi stula. At the end of the procedure, there was a palpable pulse at the wrist and there was good flow to the fistula. Wounds were closed with Monocryl and nylon sutures, and the skin was closed with ski n clips. Blood loss was 25 mL. OPERATION CARRIED OUT: Revision of arteriovenous fistula, left arm, with creation of basilic vein tr ansposition fistula. Anthony Louis Jr., MD cc: 56 TT: 11/25/2016 10:28:43 ne
[2016-11-25 12:26] VITALS: BP 152/70; PULSE 88; RESP 18; TEMP 97.6; O2SAT 99
== END 2016-11-25 12:32 | disposition home or self-care (01) ==
LOC: C.SDS 07:43
PROVIDERS: ATTEND Surgery Vascular Surgery
DX: N18.6 End stage renal disease (principal); Z99.2 Dependence on renal dialysis
CPT/HCPCS: 36819; J0690; J1885; J2250; J2405; J2704; J2710; J3010; J7040

== ENCOUNTER 2016-12-01 14:35 | Emergency (ER) | payer OTHER ==
[2016-12-01 14:46] VITALS: O2SAT 99
--- NOTE | 2016-12-01 15:47 | C.PDOC ---
Time Seen by Provider: 12/01/16 15:32 Chief Complaint (Nursing): High Blood Pressure Past Medical History Vital Signs: Last Vital Signs Temp 98.1 F 12/01/16 14:43 Pulse 84 12/01/16 14:43 Resp 20 12/01/16 14:43 BP 167/94 H 12/01/16 14:43 Pulse Ox 99 12/01/16 14:43 - Medical History PMH: Anemia, Gastritis, HTN, Hypercholesterolemia (uncontrolled ), Migraine, End Stage Renal Disease - [facility] Procedures APPLICATION OF SPLINT (09/16/14) BYPASS LEFT BRACHIAL ARTERY TO UPPER ARM VEIN, OPEN APPROACH (09/14/16) FLUOROSCOPY OF RIGHT JUGULAR VEINS, GUIDANCE (09/14/16) INSERT INFUSION DEV IN R INT JUGULAR VEIN, PERC (09/14/16) PERFORMANCE OF URINARY FILTRATION, MULTIPLE (09/14/16) Family History: States: Unknown Family Hx - Social History Hx Tobacco Use: No Hx Alcohol Use: No - Immunization History Hx Tetanus Toxoid Vaccination: Yes Hx Influenza Vaccination: Yes Hx Pneumococcal Vaccination: No ED Course And Treatment O2 Sat by Pulse Oximetry: 99
--- NOTE | 2016-12-01 15:56 | C.PDOC ---
History Of Present Illness Pt c/o facial pressure. States her BP was high during dialysis today. Time Seen by Provider: 12/01/16 15:32 Chief Complaint (Nursing): Headache History Per: Patient Onset/Duration Of Symptoms: Hrs (since this morning), Gradual Current Symptoms Are (Timing): Still Present Severity: Mild Quality: Pressure Additional History Per: Prior Records Past Medical History Reviewed: Historical Data, Nursing Documentation, Vital Signs Vital Signs: Last Vital Signs Temp 98.1 F 12/01/16 14:43 Pulse 84 12/01/16 14:43 Resp 20 12/01/16 14:43 BP 167/94 H 12/01/16 14:43 Pulse Ox 99 12/01/16 14:43 - Medical History PMH: Anemia, Gastritis, HTN, Hypercholesterolemia (uncontrolled ), Migraine, End Stage Renal Disease - [facility] Procedures APPLICATION OF SPLINT (09/16/14) BYPASS LEFT BRACHIAL ARTERY TO UPPER ARM VEIN, OPEN APPROACH (09/14/16) FLUOROSCOPY OF RIGHT JUGULAR VEINS, GUIDANCE (09/14/16) INSERT INFUSION DEV IN R INT JUGULAR VEIN, PERC (09/14/16) PERFORMANCE OF URINARY FILTRATION, MULTIPLE (09/14/16) Family History: States: Unknown Family Hx - Social History Hx Tobacco Use: No Hx Alcohol Use: No - Immunization History Hx Tetanus Toxoid Vaccination: Yes Hx Influenza Vaccination: Yes Hx Pneumococcal Vaccination: No Review Of Systems Except As Marked, All Systems Reviewed And Found Negative. Constitutional: Negative for: Fever Eyes: Negative for: Vision Change ENT: Positive for: Ear Pain (mild fullness in right ear), Nose Congestion (Some sneezing). Negative for: Ear Discharge, Throat Pain Cardiovascular: Negative for: Chest Pain Respiratory: Negative for: Cough, Shortness of Breath Gastrointestinal: Negative for: Vomiting, Abdominal Pain Musculoskeletal: Negative for: Back Pain Neurological: Negative for: Weakness, Numbness, Seizures, Altered Mental Status Physical Exam - Physical Exam Appears: Non-toxic, No Acute Distress Skin: Normal Color, Warm, Dry Head: Atraumatic, Normacephalic Eye(s): bilateral: PERRL, EOMI Ear(s): Bilateral: Normal Neck: Normal ROM, Supple Chest: Other (Dialysis catheter in right chest) Cardiovascular: Rhythm Regular Respiratory: Normal Breath Sounds, No Accessory Muscle Use Gastrointestinal/Abdominal: Soft, No Tenderness Extremity: Normal ROM Neurological/Psych: Oriented x3, Normal Speech, Normal Cognition, Normal Cranial Nerves, Normal Motor, Normal Sensation ED Course And Treatment O2 Sat by Pulse Oximetry: 99 Pulse Ox Interpretation: Normal Disposition Counseled Patient/Family Regarding: Studies Performed, Diagnosis, Need For Followup, Rx Given - Disposition Referrals: Jeramy Ye MD [Staff Provider] - Disposition: HOME/ ROUTINE Disposition Time: 15:57 Condition: STABLE Additional Instructions: Follow up with your doctor for further evaluation and treatment. Return to the ER if you develop fever, vomiting, weakness, numbness, worsening of symptoms or if you have any other concerns. Prescriptions: Fluticasone Propionate [Flonase] 2 spr NS DAILY #1 bottle Loratadine [Claritin] 10 mg PO Q72 #30 tab Instructions: Sinusitis (ED) Print Language: UKRAINIAN - Clinical Impression Clinical Impression: Sinus headache
[2016-12-01 16:49] VITALS: BP 162/71; PULSE 74; RESP 18; TEMP 97.5
== END 2016-12-01 16:46 | disposition home or self-care (01) ==
LOC: C.ER 14:35
DX: R51 Headache (principal)